=== PATIENT | female | born 1955 | race Caucasian/White ===

== ENCOUNTER 2017-04-21 01:39 | Emergency (ER) | payer BC, MEDICARE ==
[~2017-04-21] VITALS: Ht 157.5 cm; Wt 118.8 kg
[~2017-04-21 01:39] MED LIST: ACEBUTCAFT PO; ACET325 PO; ACET500; ADVAIR; ALBIPROI INH; ALBU90I INH; ALBU90OI INH; AZIT250 PO; BACL10 PO; BIOTIN5000 MCG PO; BUTALB-ACETAMI1 EAC2 PO; BUTASPCAFT PO; CEPH500 PO; CHOL10002 PO; CITA20 PO; CLON.5 PO; CLON1 PO; DEXL60CA3 PO; DIVA500EC PO; DIVA500ER PO; DOC250 PO; DOCU100 PO; DULO30 PO; DULO60 PO; FLUDROCORTISONE PO; FLUSAL2505 IH; FLUSAL2505 INH; FURO20 PO; FURO40 PO; Fludrocortison0.1 MG; Fludrocortison0.1 MG PO; GABA100; GABA100 PO; GABA300 PO; Glucophage1000 MG PO; HYDACE25S PR; HYDACE5 PO; HYDCOR2.5C PR; Imitrex100 MG PO; Keflex500 MG PO; LAVAP17G PO; LISI20 PO; LORA1 PO; MAGOXI400 PO; METF500 PO; METF500C PO; METO25 PO; METPRE4 PO; MULVITMINE PO; MUPI2TO TOP; OMEP20ER PO; OMEPRAZOLE; OMEPRAZOLE MAGN20 MG PO; ONDA4 PO; OXYACE5T PO; OXYC10ER PO; OXYC20ER PO; OXYC5 PO; Oxycodone-Apap1 EAC3 PO; POTA10T PO; POTCHL10ER PO; PRED10 PO; PROACE100 PO; PROC10 PO; PROM25 PO; PSYL5.85P PO; Percocet 5-3251 EACH PO; Prednisone20 MG PO; Prednisone50 MG PO; QUET100 PO; QUET25; QUET25 PO; RXHYDACE PO; RXONDA4ODT MM; RXPROACE PO; SIMV40 PO; SPIRIVA INH; SULTRIDS PO; SUMA25 PO; TIOT18 IH; TOPI25 PO; TOPI50 PO; TRAM50; TRAM50 PO; TRAZ50 PO; TUDORZA PRESS400 MCG IH; TUDORZA PRESS400 MCG INH; UNK MUSCLE RELAXER; VITAMIN D2000 UNIT PO; Verotin-Gr Cap1 EACH PO; WARF1 PO; WARF2 PO; WARF3 PO; WARF4 PO; WARF5 PO; WARF6 PO; ZEBUTAL 50-3251 EACH; Zithromax250 MG PO; Zofran8 MG PO; [UNRECOGNIZED DRUG - OTHER] PO
[2017-04-21 02:54] LABS: BASOPHILS ABSOLUTE AUTO 0.06 K/mm3 (0.00-0.23); BASOPHILS PERCENT AUTO 1 % (0-2); EOSINOPHILS ABSOLUTE AUTO 0.25 K/mm3 (0.00-0.68); EOSINOPHILS PERCENT AUTO 3 % (0-6); Hemoglobin 13.1 g/dL (11.5-16.0); IMMATURE GRAN ABSOLUTE AUTO 0.02 K/mm3 (0.00-0.10); IMMATURE GRAN PERCENT AUTO 0 % (0-1); LYMPHOCYTES ABSOLUTE AUTO 1.84 K/mm3 (0.84-5.20); LYMPHOCYTES PERCENT AUTO 21 % (21-46); MONOCYTES ABSOLUTE AUTO 0.89 K/mm3 (0.16-1.47); MONOCYTES PERCENT AUTO 10 % (4-13); Mean Corpuscular HGB 28.7 pg (26.0-34.0); Mean Corpuscular Volume 90 fL (80-100); NEUTROPHILS ABSOLUTE AUTO 5.57 K/mm3 (1.96-9.15); NEUTROPHILS PERCENT AUTO 65 % (41-73); Platelet Count 323 K/mm3 (150-400); RDW Coefficient Variation 14.3 % (11.7-14.2); RDW Standard Deviation 47.6 fL (35.1-46.3); Red Blood Cell Count 4.56 M/mm3 (3.80-5.20); White Blood Cell Count 8.63 K/mm3 (4.00-11.30)
[2017-04-21 03:06] LABS: Anion Gap 9 mmol/L (6-16); Blood Urea Nitrogen 8 mg/dL (8-24); Bun/Creatinine Ratio 11.5 (12.0-20.0); CO2, Blood 27 mmol/L (21-32); Calcium, Blood 8.5 mg/dL (8.5-10.1); Chloride, Blood 98 mmol/L (98-108); Glomerular Filtration Rate >60 (60-); Glucose, Blood 157 mg/dL (70-99); International Normalized Ratio 1.67; Potassium, Blood 3.7 mmol/L (3.5-5.5); Prothrombin Time Results 17.7 Sec (9.7-11.5); Sodium, Blood 134 mmol/L (136-145)
== END 2017-04-21 03:45 | disposition home or self-care (01) ==
LOC: ER 01:39
PROVIDERS: Emergency Medicine
DX: S09.90XA Unspecified injury of head, initial encounter (principal); J44.9 Chronic obstructive pulmonary disease, unspecified; I10 Essential (primary) hypertension; E11.9 Type 2 diabetes mellitus without complications; E78.00 Pure hypercholesterolemia, unspecified; Z79.01 Long term (current) use of anticoagulants; Z87.891 Personal history of nicotine dependence; Z79.899 Other long term (current) drug therapy; Z79.84 Long term (current) use of oral hypoglycemic drugs; W18.30XA Fall on same level, unspecified, initial encounter
CPT/HCPCS: 70450; 72125; 80048; 85025; 85610; 93005; 93010; 99284

== ENCOUNTER → 2017-06-12 | Outpatient (CLI) | payer BC, MEDICARE ==
[~2017-06-12] MED LIST changes: -FURO20 PO; +OMEP40CA12 PO; -OMEPRAZOLE MAGN20 MG PO
[2017-06-12 12:14] LABS: Adenovirus F 40/41 Not Detected (NOT DETECT); Astrovirus Not Detected (NOT DETECT); Campylobacter Sp Not Detected (NOT DETECT); Cryptosporidium Not Detected (NOT DETECT); Cyclospora Cayetanensis Not Detected (NOT DETECT); E. Coli O157 Not Detected (NOT DETECT); Entamoeba Histolytica Not Detected (NOT DETECT); Enteroaggregative E. coli-EAEC Not Detected (NOT DETECT); Enteropathogenic E. coli-EPEC Not Detected (NOT DETECT); Enterotoxigenic E. coli-ETEC Not Detected (NOT DETECT); Giardia Lamblia Not Detected (NOT DETECT); Norovirus GI/GII Not Detected (NOT DETECT); Plesiomonas Shigelloides Not Detected (NOT DETECT); Rotavirus A Not Detected (NOT DETECT); Salmonella Sp Not Detected (NOT DETECT); Sapovirus Not Detected (NOT DETECT); Shiga Toxin-prod E. coli-STEC Not Detected (NOT DETECT); Shigella/Enteroin E. coli-EIEC Not Detected (NOT DETECT); Vibrio Cholerae Not Detected (NOT DETECT); Vibrio Sp Not Detected (NOT DETECT); Yersinia Enterocolitica Not Detected (NOT DETECT)
== END | disposition home or self-care (01) ==
LOC: LAB 12:12 → LAB SHORT 12:12
PROVIDERS: Internal Medicine Gastroenterology
DX: R19.7 Diarrhea, unspecified (principal)
CPT/HCPCS: 87507

== ENCOUNTER 2017-06-20 21:52 | Inpatient (IN) | payer BC, MEDICARE ==
[~2017-06-20] VITALS: Ht 154.9 cm; Wt 114.1 kg
[~2017-06-20 21:52] MED LIST changes: +FURO20 PO; -OMEP40CA12 PO; +OMEPRAZOLE MAGN20 MG PO
[2017-06-20 22:15] LABS: Chloride (POC) 99 mmol/L (98-108); Creatinine (POC) 0.6 mg/dL (0.6-1.0); Glucose (ISTAT POC) 141 mg/dL (70-99); Hemoglobin (POC) 13.3 g/dL (12.0-16.0); Sodium (POC) 137 mmol/L (135-148); Total CO2 (POC) 24 mmol/L (21-32)
[2017-06-20 22:18] LABS: Hematocrit 38.7 % (33.0-51.0); Hemoglobin 12.5 g/dL (11.5-16.0); Mean Corpuscular HGB 29.3 pg (26.0-34.0); Mean Corpuscular HGB Conc 32.3 g/dL (31.5-36.5); Mean Corpuscular Volume 91 fL (80-100); Mean Platelet Volume 10.4 fL (9.1-12.4); Platelet Count 266 K/mm3 (150-400); RDW Coefficient Variation 14.8 % (11.7-14.2); RDW Standard Deviation 48.5 fL (35.1-46.3); Red Blood Cell Count 4.27 M/mm3 (3.80-5.20); White Blood Cell Count 14.36 K/mm3 (4.00-11.30)
[2017-06-20 22:32] LABS: International Normalized Ratio 1.21; Prothrombin Time Results 12.7 Sec (9.7-11.5)
[2017-06-20 22:40] LABS: Alanine Aminotransfer (ALT/SGP 20 U/L (12-78); Albumin, Blood 2.8 g/dL (3.4-5.0); Albumin/Globulin Ratio 0.7 (0.8-1.8); Alk Phos 80 U/L (50-136); Anion Gap 9 mmol/L (6-16); Aspartate Aminotrans (AST/SGOT 15 U/L (12-37); Bilirubin, Total 0.2 mg/dL (0.1-1.0); Blood Urea Nitrogen 12 mg/dL (8-24); Bun/Creatinine Ratio 18.3 (12.0-20.0); CHOL/HDL RATIO 5.6; CO2, Blood 25 mmol/L (21-32); Calcium, Blood 8.5 mg/dL (8.5-10.1); Chloride, Blood 103 mmol/L (98-108); Cholesterol 252 mg/dL (50-200); Creatinine, Blood 0.66 mg/dL (0.40-1.00); Globulin, Blood 4.3 g/dL (2.2-4.0); Glomerular Filtration Rate >60 (60-); Glucose, Blood 137 mg/dL (70-99); HDL Cholesterol 45 mg/dL (>39); LDL/HDL RATIO 3.7; Low Density Lipoprotein Chol 166 mg/dL (0-110); Magnesium, Blood 1.3 mg/dL (1.6-2.4); Potassium, Blood 3.9 mmol/L (3.5-5.5); Sodium, Blood 137 mmol/L (136-145); Total Protein, Blood 7.1 g/dL (6.4-8.2); Triglycerides 206 mg/dL (30-160); Troponin I <0.015 ng/mL (0.000-0.040); Very Low Density Lipoprot Chol 41 mg/dL (6-32)
[2017-06-21] MEDS ORDERED: WARF3 PO (01:05)
[2017-06-21] MEDS ORDERED: Pravachol40 MG PO (01:06)
[2017-06-21 03:51] LABS: Source, Urine Clean Catch
[2017-06-21 03:53] LABS: Bilirubin, Urine Neg (Neg); Blood, Urine 2+ (Neg); Glucose Qualitative, Urine Neg (Neg); Ketones, Urine 1+ (Neg); Leukocyte Esterase, Urine 3+ (Neg); Nitrite, Urine Neg (Neg); Protein, Urine 2+ (Neg); Specific Gravity, Urine 1.015 (1.003-1.022); Urobilinogen, Urine NORM (Normal)
[2017-06-21 03:57] LABS: Appearance, Urine Cloudy (Clear); Color, Urine Pale Yellow (P-Yellow)
[2017-06-21 04:00] LABS: Bacteria Many /hpf; Red Blood Cells, Urine 0-2 /hpf (0-2); Squamous Epithelial Cells Not Seen /hpf (Few); White Blood Cells, Urine TNTC /hpf (0-5)
[2017-06-21 06:20] LABS: BASOPHILS ABSOLUTE AUTO 0.09 K/mm3 (0.00-0.23); BASOPHILS PERCENT AUTO 1 % (0-2); EOSINOPHILS ABSOLUTE AUTO 0.18 K/mm3 (0.00-0.68); EOSINOPHILS PERCENT AUTO 2 % (0-6); Hematocrit 35.6 % (33.0-51.0); Hemoglobin 11.4 g/dL (11.5-16.0); IMMATURE GRAN ABSOLUTE AUTO 0.05 K/mm3 (0.00-0.10); IMMATURE GRAN PERCENT AUTO 1 % (0-1); LYMPHOCYTES PERCENT AUTO 21 % (21-46); MONOCYTES ABSOLUTE AUTO 1.28 K/mm3 (0.16-1.47); MONOCYTES PERCENT AUTO 12 % (4-13); Mean Corpuscular HGB 28.8 pg (26.0-34.0); Mean Corpuscular Volume 90 fL (80-100); Mean Platelet Volume 10.1 fL (9.1-12.4); NEUTROPHILS ABSOLUTE AUTO 7.01 K/mm3 (1.96-9.15); NEUTROPHILS PERCENT AUTO 64 % (41-73); Platelet Count 253 K/mm3 (150-400); RDW Coefficient Variation 14.8 % (11.7-14.2); RDW Standard Deviation 48.6 fL (35.1-46.3); Red Blood Cell Count 3.96 M/mm3 (3.80-5.20); White Blood Cell Count 10.91 K/mm3 (4.00-11.30)
[2017-06-21 06:43] LABS: CPK Creatine Kinase 40 U/L (26-193); Troponin I <0.015 ng/mL (0.000-0.040)
[2017-06-21 06:49] LABS: Alanine Aminotransfer (ALT/SGP 15 U/L (12-78); Albumin, Blood 2.6 g/dL (3.4-5.0); Albumin/Globulin Ratio 0.7 (0.8-1.8); Alk Phos 72 U/L (50-136); Anion Gap 8 mmol/L (6-16); Aspartate Aminotrans (AST/SGOT 11 U/L (12-37); Bilirubin, Total 0.3 mg/dL (0.1-1.0); Blood Urea Nitrogen 15 mg/dL (8-24); Bun/Creatinine Ratio 19.4 (12.0-20.0); CO2, Blood 27 mmol/L (21-32); Calcium, Blood 8.3 mg/dL (8.5-10.1); Chloride, Blood 100 mmol/L (98-108); Creatinine, Blood 0.77 mg/dL (0.40-1.00); Globulin, Blood 3.9 g/dL (2.2-4.0); Glomerular Filtration Rate >60 (60-); Glucose, Blood 128 mg/dL (70-99); Potassium, Blood 3.8 mmol/L (3.5-5.5); Sodium, Blood 135 mmol/L (136-145); Total Protein, Blood 6.5 g/dL (6.4-8.2)
[2017-06-21 15:18] LABS: International Normalized Ratio 1.44; Prothrombin Time Results 15.2 Sec (9.7-11.5)
[2017-06-21 15:49] LABS: CPK Creatine Kinase 38 U/L (26-193); Troponin I <0.015 ng/mL (0.000-0.040)
[2017-06-22 06:17] LABS: BASOPHILS ABSOLUTE AUTO 0.07 K/mm3 (0.00-0.23); BASOPHILS PERCENT AUTO 1 % (0-2); EOSINOPHILS ABSOLUTE AUTO 0.15 K/mm3 (0.00-0.68); EOSINOPHILS PERCENT AUTO 3 % (0-6); Hematocrit 37.1 % (33.0-51.0); Hemoglobin 12.2 g/dL (11.5-16.0); IMMATURE GRAN ABSOLUTE AUTO 0.03 K/mm3 (0.00-0.10); IMMATURE GRAN PERCENT AUTO 1 % (0-1); LYMPHOCYTES ABSOLUTE AUTO 1.33 K/mm3 (0.84-5.20); LYMPHOCYTES PERCENT AUTO 24 % (21-46); MONOCYTES PERCENT AUTO 13 % (4-13); Mean Corpuscular HGB 29.4 pg (26.0-34.0); Mean Corpuscular HGB Conc 32.9 g/dL (31.5-36.5); Mean Corpuscular Volume 89 fL (80-100); Mean Platelet Volume 10.5 fL (9.1-12.4); NEUTROPHILS ABSOLUTE AUTO 3.25 K/mm3 (1.96-9.15); NEUTROPHILS PERCENT AUTO 59 % (41-73); Platelet Count 276 K/mm3 (150-400); RDW Coefficient Variation 14.5 % (11.7-14.2); Red Blood Cell Count 4.15 M/mm3 (3.80-5.20); White Blood Cell Count 5.53 K/mm3 (4.00-11.30)
[2017-06-22 06:33] LABS: Anion Gap 6 mmol/L (6-16); Blood Urea Nitrogen 11 mg/dL (8-24); Bun/Creatinine Ratio 16.1 (12.0-20.0); CO2, Blood 29 mmol/L (21-32); Calcium, Blood 8.8 mg/dL (8.5-10.1); Chloride, Blood 101 mmol/L (98-108); Creatinine, Blood 0.68 mg/dL (0.40-1.00); Glomerular Filtration Rate >60 (60-); Glucose, Blood 121 mg/dL (70-99); Sodium, Blood 136 mmol/L (136-145)
[2017-06-22 17:33] LABS: International Normalized Ratio 1.27; Prothrombin Time Results 13.3 Sec (9.7-11.5)
[2017-06-23 05:01] LABS: Mean Platelet Volume 10.4 fL (9.1-12.4); Platelet Count 268 K/mm3 (150-400)
[2017-06-23 05:14] LABS: International Normalized Ratio 1.29; Prothrombin Time Results 13.5 Sec (9.7-11.5)
[2017-06-23] MEDS ORDERED: WARF4 PO (11:42)
[2017-06-23] MEDS ORDERED: LEVO750 PO (11:43)
[2017-06-23] MEDS ORDERED: COLCRYS0.6 MG PO (11:43)
== END 2017-06-23 13:21 | disposition home or self-care (01) | DRG 314 ==
LOC: ER 21:52 → ICUW 23:25 → ICUE 23:25 → MEDS 06-21 17:03 → ENPENDDIS 06-23 11:55 → MEDS 06-23 13:21
PROVIDERS: Emergency Medicine; Internal Medicine; Internal Medicine Interventional Cardiology
DX: I30.9 Acute pericarditis, unspecified (principal); G93.40 Encephalopathy, unspecified; N39.0 Urinary tract infection, site not specified; Z68.42 Body mass index [BMI] 45.0-49.9, adult; B95.2 Enterococcus as the cause of diseases classified elsewhere; Z95.2 Presence of prosthetic heart valve; I10 Essential (primary) hypertension; E11.9 Type 2 diabetes mellitus without complications; Z86.718 Personal history of other venous thrombosis and embolism; Z86.711 Personal history of pulmonary embolism; J44.9 Chronic obstructive pulmonary disease, unspecified; E78.5 Hyperlipidemia, unspecified; E66.9 Obesity, unspecified; J84.10 Pulmonary fibrosis, unspecified; Z79.01 Long term (current) use of anticoagulants
CPT/HCPCS: 36415; 71260; 80047; 80048; 80053; 80061; 81001; 82550; 82947; 83735; 84484; 85014; 85025; 85027; 85049; 85610; 85730; 86850; 86900; 86901; 87077; 87086; 87186; 93005; 93010; 93306; 94640; 94760; 96374; 96375; 99285; J1644; J1650; J1885; J1956; J2405; J3010; J3475; J7030; Q9967

== ENCOUNTER 2017-07-01 09:40 | Emergency (ER) | payer BC, MEDICARE ==
[~2017-07-01] VITALS: Ht 157.5 cm; Wt 121.6 kg
[~2017-07-01 09:40] MED LIST changes: +COLCRYS0.6 MG PO; +LEVO750 PO; +OMEP40CA12 PO; -OMEPRAZOLE MAGN20 MG PO; +Pravachol40 MG PO
[2017-07-01 10:14] LABS: BASOPHILS ABSOLUTE AUTO 0.09 K/mm3 (0.00-0.23); BASOPHILS PERCENT AUTO 1 % (0-2); EOSINOPHILS PERCENT AUTO 4 % (0-6); Hematocrit 36.3 % (33.0-51.0); Hemoglobin 11.9 g/dL (11.5-16.0); IMMATURE GRAN ABSOLUTE AUTO 0.02 K/mm3 (0.00-0.10); IMMATURE GRAN PERCENT AUTO 0 % (0-1); LYMPHOCYTES ABSOLUTE AUTO 1.97 K/mm3 (0.84-5.20); LYMPHOCYTES PERCENT AUTO 28 % (21-46); MONOCYTES ABSOLUTE AUTO 0.81 K/mm3 (0.16-1.47); MONOCYTES PERCENT AUTO 11 % (4-13); Mean Corpuscular HGB 29.5 pg (26.0-34.0); Mean Corpuscular HGB Conc 32.8 g/dL (31.5-36.5); Mean Corpuscular Volume 90 fL (80-100); Mean Platelet Volume 10.3 fL (9.1-12.4); NEUTROPHILS ABSOLUTE AUTO 3.98 K/mm3 (1.96-9.15); NEUTROPHILS PERCENT AUTO 55 % (41-73); Platelet Count 259 K/mm3 (150-400); RDW Coefficient Variation 14.5 % (11.7-14.2); RDW Standard Deviation 47.3 fL (35.1-46.3); Red Blood Cell Count 4.04 M/mm3 (3.80-5.20); White Blood Cell Count 7.17 K/mm3 (4.00-11.30)
[2017-07-01 10:30] LABS: International Normalized Ratio 1.53; Prothrombin Time Results 16.1 Sec (9.7-11.5)
[2017-07-01 10:36] LABS: Alanine Aminotransfer (ALT/SGP 18 U/L (12-78); Albumin, Blood 2.8 g/dL (3.4-5.0); Albumin/Globulin Ratio 0.8 (0.8-1.8); Alk Phos 67 U/L (50-136); Anion Gap 10 mmol/L (6-16); Aspartate Aminotrans (AST/SGOT 13 U/L (12-37); Bilirubin, Total 0.2 mg/dL (0.1-1.0); Blood Urea Nitrogen 8 mg/dL (8-24); Bun/Creatinine Ratio 11.5 (12.0-20.0); CO2, Blood 28 mmol/L (21-32); Calcium, Blood 7.8 mg/dL (8.5-10.1); Chloride, Blood 98 mmol/L (98-108); Globulin, Blood 3.6 g/dL (2.2-4.0); Glomerular Filtration Rate >60 (60-); Glucose, Blood 90 mg/dL (70-99); Potassium, Blood 3.8 mmol/L (3.5-5.5); Sodium, Blood 136 mmol/L (136-145); Total Protein, Blood 6.4 g/dL (6.4-8.2); Troponin I <0.015 ng/mL (0.000-0.040)
== END 2017-07-01 11:32 | disposition home or self-care (01) ==
LOC: ER 09:40
PROVIDERS: Emergency Medicine
DX: I63.9 Cerebral infarction, unspecified (principal); I61.8 Other nontraumatic intracerebral hemorrhage; R20.2 Paresthesia of skin; J44.9 Chronic obstructive pulmonary disease, unspecified; I10 Essential (primary) hypertension; E11.9 Type 2 diabetes mellitus without complications; E78.00 Pure hypercholesterolemia, unspecified; Z87.891 Personal history of nicotine dependence; Z88.0 Allergy status to penicillin; Z88.5 Allergy status to narcotic agent; Z88.6 Allergy status to analgesic agent; Z91.048 Other nonmedicinal substance allergy status; Z79.899 Other long term (current) drug therapy; Z79.84 Long term (current) use of oral hypoglycemic drugs; Z79.01 Long term (current) use of anticoagulants
CPT/HCPCS: 70450; 80053; 82947; 84484; 85025; 85610; 93005; 93010; 99284

== ENCOUNTER 2017-07-05 09:33 | Observation (INO) | payer BC, MEDICARE ==
[~2017-07-05] VITALS: Ht 154.9 cm; Wt 107.9 kg
[~2017-07-05 09:33] MED LIST changes: -OMEP40CA12 PO; +OMEPRAZOLE MAGN20 MG PO
[2017-07-05 11:31] LABS: BASOPHILS ABSOLUTE AUTO 0.06 K/mm3 (0.00-0.23); BASOPHILS PERCENT AUTO 1 % (0-2); EOSINOPHILS ABSOLUTE AUTO 0.16 K/mm3 (0.00-0.68); EOSINOPHILS PERCENT AUTO 2 % (0-6); Hematocrit 36.9 % (33.0-51.0); Hemoglobin 12.1 g/dL (11.5-16.0); IMMATURE GRAN ABSOLUTE AUTO 0.02 K/mm3 (0.00-0.10); IMMATURE GRAN PERCENT AUTO 0 % (0-1); LYMPHOCYTES ABSOLUTE AUTO 1.41 K/mm3 (0.84-5.20); LYMPHOCYTES PERCENT AUTO 19 % (21-46); MONOCYTES ABSOLUTE AUTO 0.94 K/mm3 (0.16-1.47); MONOCYTES PERCENT AUTO 13 % (4-13); Mean Corpuscular HGB 29.3 pg (26.0-34.0); Mean Corpuscular HGB Conc 32.8 g/dL (31.5-36.5); Mean Corpuscular Volume 89 fL (80-100); Mean Platelet Volume 10.6 fL (9.1-12.4); NEUTROPHILS ABSOLUTE AUTO 4.85 K/mm3 (1.96-9.15); NEUTROPHILS PERCENT AUTO 65 % (41-73); Platelet Count 253 K/mm3 (150-400); RDW Coefficient Variation 14.8 % (11.7-14.2); RDW Standard Deviation 48.3 fL (35.1-46.3); Red Blood Cell Count 4.13 M/mm3 (3.80-5.20); White Blood Cell Count 7.44 K/mm3 (4.00-11.30)
[2017-07-05 11:43] LABS: International Normalized Ratio 1.41; Prothrombin Time Results 14.8 Sec (9.7-11.5)
[2017-07-05 11:54] LABS: Alanine Aminotransfer (ALT/SGP 17 U/L (12-78); Albumin/Globulin Ratio 0.8 (0.8-1.8); Alk Phos 72 U/L (50-136); Anion Gap 8 mmol/L (6-16); Aspartate Aminotrans (AST/SGOT 21 U/L (12-37); Bilirubin, Total 0.2 mg/dL (0.1-1.0); Blood Urea Nitrogen 10 mg/dL (8-24); Bun/Creatinine Ratio 15.7 (12.0-20.0); CO2, Blood 27 mmol/L (21-32); Calcium, Blood 8.7 mg/dL (8.5-10.1); Chloride, Blood 101 mmol/L (98-108); Creatinine, Blood 0.64 mg/dL (0.40-1.00); Ethanol (Alcohol), Blood, Med <3 mg/dL; Globulin, Blood 3.6 g/dL (2.2-4.0); Glomerular Filtration Rate >60 (60-); Glucose, Blood 97 mg/dL (70-99); Potassium, Blood 4.5 mmol/L (3.5-5.5); Sodium, Blood 136 mmol/L (136-145); Total Protein, Blood 6.6 g/dL (6.4-8.2); Troponin I <0.015 ng/mL (0.000-0.040)
[2017-07-05 12:05] LABS: Base Excess Venous 2.9 mmol/L; Bicarbonate Venous 26.1 mmol/L (24.0-30.0); PCO2 Venous 47.8 mmHg (38-42); PO2 Venous 55.4 mmHg (38-42); pH Blood Venous 7.38 (7.34-7.37)
[2017-07-06 05:54] LABS: BASOPHILS PERCENT AUTO 1 % (0-2); EOSINOPHILS ABSOLUTE AUTO 0.19 K/mm3 (0.00-0.68); EOSINOPHILS PERCENT AUTO 2 % (0-6); Hematocrit 36.9 % (33.0-51.0); Hemoglobin 11.9 g/dL (11.5-16.0); IMMATURE GRAN ABSOLUTE AUTO 0.03 K/mm3 (0.00-0.10); IMMATURE GRAN PERCENT AUTO 0 % (0-1); LYMPHOCYTES ABSOLUTE AUTO 1.99 K/mm3 (0.84-5.20); LYMPHOCYTES PERCENT AUTO 26 % (21-46); MONOCYTES PERCENT AUTO 14 % (4-13); Mean Corpuscular HGB 29.2 pg (26.0-34.0); Mean Corpuscular HGB Conc 32.2 g/dL (31.5-36.5); Mean Corpuscular Volume 91 fL (80-100); Mean Platelet Volume 10.2 fL (9.1-12.4); NEUTROPHILS ABSOLUTE AUTO 4.36 K/mm3 (1.96-9.15); NEUTROPHILS PERCENT AUTO 56 % (41-73); Platelet Count 261 K/mm3 (150-400); RDW Standard Deviation 49.5 fL (35.1-46.3); Red Blood Cell Count 4.07 M/mm3 (3.80-5.20); White Blood Cell Count 7.77 K/mm3 (4.00-11.30)
[2017-07-06 06:05] LABS: International Normalized Ratio 1.51; Prothrombin Time Results 15.9 Sec (9.7-11.5)
[2017-07-06 06:26] LABS: Anion Gap 10 mmol/L (6-16); Blood Urea Nitrogen 10 mg/dL (8-24); CO2, Blood 23 mmol/L (21-32); Calcium, Blood 8.9 mg/dL (8.5-10.1); Chloride, Blood 104 mmol/L (98-108); Creatinine, Blood 0.59 mg/dL (0.40-1.00); Glomerular Filtration Rate >60 (60-); Glucose, Blood 111 mg/dL (70-99); Sodium, Blood 137 mmol/L (136-145)
[2017-07-07 05:18] LABS: International Normalized Ratio 1.9; Prothrombin Time Results 20.2 Sec (9.7-11.5)
[2017-07-07 06:18] LABS: BASOPHILS ABSOLUTE AUTO 0.08 K/mm3 (0.00-0.23); BASOPHILS PERCENT AUTO 1 % (0-2); EOSINOPHILS ABSOLUTE AUTO 0.33 K/mm3 (0.00-0.68); EOSINOPHILS PERCENT AUTO 4 % (0-6); Hemoglobin 11.8 g/dL (11.5-16.0); IMMATURE GRAN ABSOLUTE AUTO 0.02 K/mm3 (0.00-0.10); IMMATURE GRAN PERCENT AUTO 0 % (0-1); LYMPHOCYTES ABSOLUTE AUTO 1.87 K/mm3 (0.84-5.20); LYMPHOCYTES PERCENT AUTO 23 % (21-46); MONOCYTES ABSOLUTE AUTO 1.12 K/mm3 (0.16-1.47); MONOCYTES PERCENT AUTO 14 % (4-13); Mean Corpuscular HGB 29.4 pg (26.0-34.0); Mean Corpuscular HGB Conc 31.9 g/dL (31.5-36.5); Mean Corpuscular Volume 92 fL (80-100); Mean Platelet Volume 10.4 fL (9.1-12.4); NEUTROPHILS ABSOLUTE AUTO 4.67 K/mm3 (1.96-9.15); NEUTROPHILS PERCENT AUTO 58 % (41-73); Platelet Count 258 K/mm3 (150-400); RDW Standard Deviation 51.1 fL (35.1-46.3); Red Blood Cell Count 4.02 M/mm3 (3.80-5.20); White Blood Cell Count 8.09 K/mm3 (4.00-11.30)
[2017-07-07 06:25] LABS: Anion Gap 8 mmol/L (6-16); Blood Urea Nitrogen 10 mg/dL (8-24); Bun/Creatinine Ratio 16.8 (12.0-20.0); CO2, Blood 24 mmol/L (21-32); Chloride, Blood 106 mmol/L (98-108); Glomerular Filtration Rate >60 (60-); Glucose, Blood 108 mg/dL (70-99); Potassium, Blood 4.4 mmol/L (3.5-5.5); Sodium, Blood 138 mmol/L (136-145)
[2017-07-07] MEDS ORDERED: WARF5 PO (09:51)
[2017-07-07] MEDS ORDERED: MIDO2.5 PO (09:52)
== END 2017-07-07 12:50 ==
LOC: ER 09:33 → MEDS 09:34
PROVIDERS: Emergency Medicine; Hospitalist
DX: G93.40 Encephalopathy, unspecified (principal); R53.1 Weakness; E11.9 Type 2 diabetes mellitus without complications; E78.5 Hyperlipidemia, unspecified; F32.9 Major depressive disorder, single episode, unspecified; I11.0 Hypertensive heart disease with heart failure; I50.30 Unspecified diastolic (congestive) heart failure; F41.9 Anxiety disorder, unspecified; Z79.899 Other long term (current) drug therapy; Z85.118 Personal history of other malignant neoplasm of bronchus and lung; Z92.21 Personal history of antineoplastic chemotherapy; Z95.2 Presence of prosthetic heart valve; Z88.0 Allergy status to penicillin; Z88.5 Allergy status to narcotic agent; Z88.6 Allergy status to analgesic agent; Z86.718 Personal history of other venous thrombosis and embolism
CPT/HCPCS: 36415; 70551; 71045; 80048; 80053; 82533; 82803; 82947; 84484; 85025; 85610; 93005; 93010; 96372; 97116; 97162; 97166; 97530; 97535; 99285; G0378; G0480; G8978; G8979; G8987; G8988; J1650; P9612

== ENCOUNTER → 2017-07-10 | Outpatient (CLI) | payer BC, MEDICARE ==
[~2017-07-10] MED LIST changes: +MIDO2.5 PO
[2017-07-10 10:08] LABS: Alanine Aminotransfer (ALT/SGP 23 U/L (12-78); Albumin, Blood 3.1 g/dL (3.4-5.0); Albumin/Globulin Ratio 0.8 (0.8-1.8); Alk Phos 82 U/L (40-126); Anion Gap 13 mmol/L (6-16); Aspartate Aminotrans (AST/SGOT 18 U/L (12-37); Bilirubin, Total 0.3 mg/dL (0.1-1.0); Blood Urea Nitrogen 14 mg/dL (8-24); Bun/Creatinine Ratio 16.1 (12.0-20.0); CO2, Blood 25 mmol/L (21-32); Calcium, Blood 8.6 mg/dL (8.5-10.1); Chloride, Blood 102 mmol/L (98-108); Creatinine, Blood 0.87 mg/dL (0.40-1.00); Globulin, Blood 3.9 g/dL (2.2-4.0); Glomerular Filtration Rate >60 (60-); Glucose, Blood 144 mg/dL (70-99); Potassium, Blood 4.2 mmol/L (3.5-5.5); Sodium, Blood 140 mmol/L (136-145)
[2017-07-10 10:12] LABS: BASOPHILS ABSOLUTE AUTO 0.09 K/mm3 (0.00-0.23); BASOPHILS PERCENT AUTO 1 % (0-2); EOSINOPHILS ABSOLUTE AUTO 0.32 K/mm3 (0.00-0.68); EOSINOPHILS PERCENT AUTO 2 % (0-6); Hematocrit 40.2 % (33.0-51.0); Hemoglobin 13.1 g/dL (11.5-16.0); IMMATURE GRAN ABSOLUTE AUTO 0.04 K/mm3 (0.00-0.10); IMMATURE GRAN PERCENT AUTO 0 % (0-1); LYMPHOCYTES ABSOLUTE AUTO 1.71 K/mm3 (0.84-5.20); LYMPHOCYTES PERCENT AUTO 13 % (21-46); MONOCYTES ABSOLUTE AUTO 0.99 K/mm3 (0.16-1.47); MONOCYTES PERCENT AUTO 8 % (4-13); Mean Corpuscular HGB 29.5 pg (26.0-34.0); Mean Corpuscular HGB Conc 32.6 g/dL (31.5-36.5); Mean Corpuscular Volume 91 fL (80-100); NEUTROPHILS ABSOLUTE AUTO 10.06 K/mm3 (1.96-9.15); NEUTROPHILS PERCENT AUTO 76 % (41-73); Platelet Count 267 K/mm3 (150-400); RDW Coefficient Variation 15.2 % (11.7-14.2); RDW Standard Deviation 49.5 fL (35.1-46.3); Red Blood Cell Count 4.44 M/mm3 (3.80-5.20); White Blood Cell Count 13.21 K/mm3 (4.00-11.30)
[2017-07-10 10:29] LABS: International Normalized Ratio 3.06; Prothrombin Time Results 32.9 Sec (9.7-11.5)
== END ==
LOC: LAB EV 09:50 → LAB SHORT 09:50
PROVIDERS: Family Medicine
DX: I95.9 Hypotension, unspecified (principal); R41.82 Altered mental status, unspecified; Z86.718 Personal history of other venous thrombosis and embolism
CPT/HCPCS: 80053; 85025; 85610

== ENCOUNTER 2017-10-31 16:55 | Emergency (ER) | payer BC, MEDICARE ==
[~2017-10-31] VITALS: Ht 165.1 cm; Wt 90.7 kg
[2017-10-31 17:23] LABS: BASOPHILS ABSOLUTE AUTO 0.12 K/mm3 (0.00-0.23); BASOPHILS PERCENT AUTO 2 % (0-2); EOSINOPHILS ABSOLUTE AUTO 0.36 K/mm3 (0.00-0.68); EOSINOPHILS PERCENT AUTO 5 % (0-6); Hematocrit 36.3 % (33.0-51.0); Hemoglobin 11.7 g/dL (11.5-16.0); IMMATURE GRAN ABSOLUTE AUTO 0.04 K/mm3 (0.00-0.10); IMMATURE GRAN PERCENT AUTO 1 % (0-1); LYMPHOCYTES ABSOLUTE AUTO 2.09 K/mm3 (0.84-5.20); LYMPHOCYTES PERCENT AUTO 26 % (21-46); MONOCYTES ABSOLUTE AUTO 1.05 K/mm3 (0.16-1.47); MONOCYTES PERCENT AUTO 13 % (4-13); Mean Corpuscular HGB 28.4 pg (26.0-34.0); Mean Corpuscular HGB Conc 32.2 g/dL (31.5-36.5); Mean Corpuscular Volume 88 fL (80-100); Mean Platelet Volume 9.9 fL (9.1-12.4); NEUTROPHILS ABSOLUTE AUTO 4.36 K/mm3 (1.96-9.15); NEUTROPHILS PERCENT AUTO 54 % (41-73); Platelet Count 251 K/mm3 (150-400); RDW Coefficient Variation 16.1 % (11.7-14.2); RDW Standard Deviation 52.3 fL (35.1-46.3); Red Blood Cell Count 4.12 M/mm3 (3.80-5.20); White Blood Cell Count 8.02 K/mm3 (4.00-11.30)
[2017-10-31 17:42] LABS: Alanine Aminotransfer (ALT/SGP 21 U/L (12-78); Albumin, Blood 2.8 g/dL (3.4-5.0); Albumin/Globulin Ratio 0.7 (0.8-1.8); Alk Phos 73 U/L (50-136); Anion Gap 10 mmol/L (6-16); Aspartate Aminotrans (AST/SGOT 22 U/L (12-37); Bilirubin, Total 0.1 mg/dL (0.1-1.0); Blood Urea Nitrogen 21 mg/dL (8-24); Bun/Creatinine Ratio 25.7 (12.0-20.0); CO2, Blood 25 mmol/L (21-32); Calcium, Blood 8.8 mg/dL (8.5-10.1); Chloride, Blood 101 mmol/L (98-108); Creatinine, Blood 0.82 mg/dL (0.40-1.00); Glomerular Filtration Rate >60 (60-); Glucose, Blood 169 mg/dL (70-99); Potassium, Blood 4.2 mmol/L (3.5-5.5); Sodium, Blood 136 mmol/L (136-145); Total Protein, Blood 6.8 g/dL (6.4-8.2)
[2017-10-31 17:59] LABS: International Normalized Ratio 2.46; Prothrombin Time Results 24.1 Sec (9.7-11.5)
== END 2017-10-31 20:16 | disposition home or self-care (01) ==
LOC: ER 16:55
PROVIDERS: Emergency Medicine
DX: S09.90XA Unspecified injury of head, initial encounter (principal); R56.9 Unspecified convulsions; E87.8 Other disorders of electrolyte and fluid balance, not elsewhere classified; W01.198A Fall on same level from slipping, tripping and stumbling with subsequent striking against other object, initial encounter; Z88.0 Allergy status to penicillin; Z91.048 Other nonmedicinal substance allergy status; Z88.5 Allergy status to narcotic agent; Z88.8 Allergy status to other drugs, medicaments and biological substances; Z79.899 Other long term (current) drug therapy; Z79.84 Long term (current) use of oral hypoglycemic drugs; Z79.01 Long term (current) use of anticoagulants; J44.9 Chronic obstructive pulmonary disease, unspecified; I10 Essential (primary) hypertension; E11.9 Type 2 diabetes mellitus without complications; E78.00 Pure hypercholesterolemia, unspecified; Z87.891 Personal history of nicotine dependence
CPT/HCPCS: 70450; 80053; 85025; 85610; 93005; 93010; 99285-25

== ENCOUNTER → 2018-05-24 | Outpatient (CLI) | payer BC, MEDICARE ==
[2018-05-24 13:54] LABS: International Normalized Ratio 1.54; Prothrombin Time Results 15.7 Sec (9.7-11.5)
== END | disposition home or self-care (01) ==
LOC: LAB 13:13 → LAB SHORT 13:13
PROVIDERS: Nurse Practitioner Family
DX: Z48.812 Encounter for surgical aftercare following surgery on the circulatory system (principal); Z95.4 Presence of other heart-valve replacement
CPT/HCPCS: 36415; 85610

== ENCOUNTER 2019-02-22 08:08 | Emergency (ER) | payer BC, MEDICARE ==
[~2019-02-22] VITALS: Ht 160 cm; Wt 109.3 kg
[~2019-02-22 08:08] MED LIST changes: -OMEPRAZOLE MAGN20 MG PO; +OMEPRAZOLE20 MG PO; -POTCHL10ER PO
[2019-02-22 09:16] LABS: BASOPHILS ABSOLUTE AUTO 0.07 K/mm3 (0.00-0.23); BASOPHILS PERCENT AUTO 1 % (0-2); EOSINOPHILS ABSOLUTE AUTO 0.28 K/mm3 (0.00-0.68); EOSINOPHILS PERCENT AUTO 3 % (0-6); Hematocrit 40.9 % (33.0-51.0); Hemoglobin 12.9 g/dL (11.5-16.0); IMMATURE GRAN ABSOLUTE AUTO 0.04 K/mm3 (0.00-0.10); IMMATURE GRAN PERCENT AUTO 0 % (0-1); LYMPHOCYTES ABSOLUTE AUTO 1.83 K/mm3 (0.84-5.20); LYMPHOCYTES PERCENT AUTO 16 % (21-46); MONOCYTES PERCENT AUTO 8 % (4-13); Mean Corpuscular HGB 29.3 pg (26.0-34.0); Mean Corpuscular HGB Conc 31.5 g/dL (31.5-36.5); Mean Corpuscular Volume 93 fL (80-100); NEUTROPHILS ABSOLUTE AUTO 8.26 K/mm3 (1.96-9.15); NEUTROPHILS PERCENT AUTO 73 % (41-73); Platelet Count 252 K/mm3 (150-400); RDW Coefficient Variation 14.2 % (11.7-14.2); White Blood Cell Count 11.38 K/mm3 (4.00-11.30)
[2019-02-22 09:30] LABS: Bicarbonate Venous 25.2 mmol/L (24.0-30.0); PCO2 Venous 51.2 mmHg (38-42); PO2 Venous 37.6 mmHg (38-42); pH Blood Venous 7.35 (7.34-7.37)
[2019-02-22 09:31] LABS: Base Excess Venous 2.6 mmol/L
[2019-02-22 09:38] LABS: Alanine Aminotransfer (ALT/SGP 20 U/L (12-78); Albumin, Blood 2.7 g/dL (3.4-5.0); Albumin/Globulin Ratio 0.7 (0.8-1.8); Alk Phos 70 U/L (50-136); Anion Gap 7 mmol/L (6-16); Aspartate Aminotrans (AST/SGOT 14 U/L (12-37); Bilirubin, Total 0.2 mg/dL (0.1-1.0); Blood Urea Nitrogen 13 mg/dL (8-24); Bun/Creatinine Ratio 18.6 (12.0-20.0); CO2, Blood 27 mmol/L (21-32); Calcium, Blood 8.1 mg/dL (8.5-10.1); Chloride, Blood 103 mmol/L (98-108); Globulin, Blood 3.9 g/dL (2.2-4.0); Glomerular Filtration Rate >60 (60-); Glucose, Blood 99 mg/dL (70-99); Potassium, Blood 4.5 mmol/L (3.5-5.5); Sodium, Blood 137 mmol/L (136-145); Total Protein, Blood 6.6 g/dL (6.4-8.2)
[2019-02-22 09:46] LABS: Beta-hydroxybutyrate 1.7 mg/dL (0.2-2.8)
[2019-02-22 13:25] LABS: Source, Urine Clean Catch
[2019-02-22 13:27] LABS: Bilirubin, Urine Neg (Neg); Blood, Urine Neg (Neg); Glucose Qualitative, Urine Neg (Neg); Ketones, Urine 1+ (Neg); Leukocyte Esterase, Urine Neg (Neg); Nitrite, Urine Neg (Neg); Protein, Urine Neg (Neg); Urobilinogen, Urine NORM (Normal)
[2019-02-22 13:49] LABS: Appearance, Urine Clear (Clear); Color, Urine Yellow (P-Yellow)
== END 2019-02-22 14:25 | disposition home or self-care (01) ==
LOC: ER 08:08
PROVIDERS: Physician Assistant
DX: E11.65 Type 2 diabetes mellitus with hyperglycemia (principal); R42 Dizziness and giddiness; I10 Essential (primary) hypertension; J44.9 Chronic obstructive pulmonary disease, unspecified; E78.00 Pure hypercholesterolemia, unspecified; Z88.0 Allergy status to penicillin; Z88.5 Allergy status to narcotic agent; Z91.048 Other nonmedicinal substance allergy status; Z79.84 Long term (current) use of oral hypoglycemic drugs; Z79.899 Other long term (current) drug therapy; Z79.01 Long term (current) use of anticoagulants; Z86.73 Personal history of transient ischemic attack (TIA), and cerebral infarction without residual deficits; Z87.891 Personal history of nicotine dependence
CPT/HCPCS: 36415; 71046; 80053; 81003; 82010; 82803; 82947; 85025; 93005; 93010; 96360; 96361; 99285-25; J7030

== ENCOUNTER 2019-03-21 17:19 | Observation (INO) | payer BC, MEDICARE ==
[~2019-03-21] VITALS: Ht 157.5 cm; Wt 109.8 kg
[2019-03-21 18:07] LABS: BASOPHILS ABSOLUTE AUTO 0.06 K/mm3 (0.00-0.23); BASOPHILS PERCENT AUTO 1 % (0-2); EOSINOPHILS ABSOLUTE AUTO 0.11 K/mm3 (0.00-0.68); EOSINOPHILS PERCENT AUTO 1 % (0-6); Hematocrit 43.2 % (33.0-51.0); Hemoglobin 13.7 g/dL (11.5-16.0); IMMATURE GRAN ABSOLUTE AUTO 0.03 K/mm3 (0.00-0.10); IMMATURE GRAN PERCENT AUTO 0 % (0-1); LYMPHOCYTES ABSOLUTE AUTO 2.63 K/mm3 (0.84-5.20); LYMPHOCYTES PERCENT AUTO 26 % (21-46); MONOCYTES ABSOLUTE AUTO 0.81 K/mm3 (0.16-1.47); MONOCYTES PERCENT AUTO 8 % (4-13); Mean Corpuscular HGB 29.3 pg (26.0-34.0); Mean Corpuscular HGB Conc 31.7 g/dL (31.5-36.5); Mean Corpuscular Volume 92 fL (80-100); Mean Platelet Volume 10.4 fL (9.1-12.4); NEUTROPHILS PERCENT AUTO 64 % (41-73); Platelet Count 293 K/mm3 (150-400); RDW Coefficient Variation 14.6 % (11.7-14.2); RDW Standard Deviation 49.6 fL (35.1-46.3); Red Blood Cell Count 4.68 M/mm3 (3.80-5.20); White Blood Cell Count 10.04 K/mm3 (4.00-11.30)
[2019-03-21 18:28] LABS: Alanine Aminotransfer (ALT/SGP 24 U/L (12-78); Albumin, Blood 3.1 g/dL (3.4-5.0); Albumin/Globulin Ratio 0.7 (0.8-1.8); Alk Phos 69 U/L (50-136); Anion Gap 6 mmol/L (6-16); Aspartate Aminotrans (AST/SGOT 17 U/L (12-37); Bilirubin, Total 0.2 mg/dL (0.1-1.0); Blood Urea Nitrogen 7 mg/dL (8-24); Bun/Creatinine Ratio 11.7 (12.0-20.0); CO2, Blood 25 mmol/L (21-32); Calcium, Blood 8.9 mg/dL (8.5-10.1); Chloride, Blood 103 mmol/L (98-108); Globulin, Blood 4.2 g/dL (2.2-4.0); Glomerular Filtration Rate >60 (60-); Glucose, Blood 134 mg/dL (70-99); Potassium, Blood 4.4 mmol/L (3.5-5.5); Sodium, Blood 134 mmol/L (136-145); Total Protein, Blood 7.3 g/dL (6.4-8.2)
[2019-03-21 20:46] LABS: International Normalized Ratio 2.01; Prothrombin Time Results 20.7 Sec (9.7-11.5)
[2019-03-21 21:04] LABS: Source, Urine Clean Catch
[2019-03-21 21:07] LABS: Bilirubin, Urine Neg (Neg); Blood, Urine Neg (Neg); Glucose Qualitative, Urine Neg (Neg); Ketones, Urine 1+ (Neg); Leukocyte Esterase, Urine 1+ (Neg); Nitrite, Urine Neg (Neg); Protein, Urine Neg (Neg); Specific Gravity, Urine 1.005 (1.003-1.022); Urobilinogen, Urine NORM (Normal)
[2019-03-21 21:07] LABS: Valproic Acid 27.1 ug/mL (50.0-100.0)
[2019-03-21 21:08] LABS: Appearance, Urine Clear (Clear); Color, Urine Yellow (P-Yellow)
[2019-03-21 21:14] LABS: Red Blood Cells, Urine Rare /hpf (0-2); White Blood Cells, Urine Rare /hpf (0-5)
[2019-03-21 21:16] LABS: Bacteria Not Seen /hpf; Renal Epithelial Few /hpf (0-Rare); Squamous Epithelial Cells Rare /hpf (Few)
[2019-03-21] MEDS ORDERED: METO25ER PO (21:41)
[2019-03-21] MEDS ORDERED: PRENATAL TABLE1 EAC2 PO (21:42)
[2019-03-21] MEDS ORDERED: MERIBIN5 MG PO (21:43)
[2019-03-21] MEDS ORDERED: ASCO500 PO (21:43)
[2019-03-21] MEDS ORDERED: FERSU300 PO (21:44)
--- NOTE | 2019-03-22 01:59 | NUR ---
FLU SHOT ON HOLD UNTIL COMES IN, ASPT IS POOR HISTORIAN.
[2019-03-22 04:47] LABS: Hematocrit 38.4 % (33.0-51.0); Hemoglobin 12.2 g/dL (11.5-16.0); Mean Corpuscular HGB 29.1 pg (26.0-34.0); Mean Corpuscular HGB Conc 31.8 g/dL (31.5-36.5); Mean Corpuscular Volume 92 fL (80-100); Mean Platelet Volume 10.2 fL (9.1-12.4); Platelet Count 239 K/mm3 (150-400); RDW Coefficient Variation 14.6 % (11.7-14.2); RDW Standard Deviation 48.6 fL (35.1-46.3); Red Blood Cell Count 4.19 M/mm3 (3.80-5.20)
[2019-03-22 05:08] LABS: Alanine Aminotransfer (ALT/SGP 20 U/L (12-78); Albumin, Blood 2.6 g/dL (3.4-5.0); Albumin/Globulin Ratio 0.7 (0.8-1.8); Alk Phos 60 U/L (50-136); Anion Gap 6 mmol/L (6-16); Aspartate Aminotrans (AST/SGOT 11 U/L (12-37); Bilirubin, Total 0.3 mg/dL (0.1-1.0); Blood Urea Nitrogen 7 mg/dL (8-24); Bun/Creatinine Ratio 10.5 (12.0-20.0); CO2, Blood 28 mmol/L (21-32); Calcium, Blood 8.5 mg/dL (8.5-10.1); Chloride, Blood 106 mmol/L (98-108); Creatinine, Blood 0.67 mg/dL (0.40-1.00); Globulin, Blood 3.7 g/dL (2.2-4.0); Glomerular Filtration Rate >60 (60-); Glucose, Blood 102 mg/dL (70-99); Sodium, Blood 140 mmol/L (136-145); Total Protein, Blood 6.3 g/dL (6.4-8.2)
--- NOTE | 2019-03-22 17:20 | NUR ---
SHIFT SUMMARY- PT IS ALERT AND PLESANT. SHE SLEPT MOST OF THIS SHIFT. SHE HAD VISITORS IN TO SEE HER. PT EATING AND DRINKING WELL. PT/ OT EVALUATED WORKED WITH HER. PT UP THE THE CHAIR FOR SEVERAL HOURS.
--- NOTE | 2019-03-23 01:54 | NUR ---
BEGINNING SHIFT SUMMARY ASSUMED CARE OF PT AT 1900. PT IS ALERT AND ORIENTED TO SELF AND FAMILY, DENIES N/T IN EXTREMITIES, PT IS VERY LETHARGIC WHILE EATING HER MEAL. HEART SOUNDS REGULAR, FINE CRACKLES IN THE BASES OF LUNGS, DENIES SOB AT THIS TIME. PT IS INCONTINENT OF BLADDER DURING THE NIGHT. DENIES PAIN AT THIS TIME. CALL LIGHT IN REACH, BED IN LOWEST POSTION, WILL CONTINUE TO MONITOR.
--- NOTE | 2019-03-23 04:47 | NUR ---
END SHIFT SUMMARY PT WAS INCONTINENT T/O THE NIGHT. PT SLEPT T/O THE NIGHT. PT C/O PAIN IN HER L HIP, PT WAS REPOSITIONED AND HAS SLEPT SINCE. CALL LIGHT IN REACH, BED IN LOWEST POSTION, BED ALARM ON, WILL CONTINUE TO MONITOR UNTIL DAYSHIFT NURSE ARRIVES.
[2019-03-23 05:17] LABS: International Normalized Ratio 2.49; Prothrombin Time Results 25.3 Sec (9.7-11.5)
--- NOTE | 2019-03-23 06:14 | NUR ---
PROVIDER CALL BLADDER SCAN SHOWED >999ML; HOSPITALIST NOTIFIED, ORDERED STRAIGHT CATHETERIZATION AND TO RECHECK BLADDER SCAN IN 4HR. WILL NOTIFY DAYSHIFT NURSE.
--- NOTE | 2019-03-23 16:41 | NUR ---
SHIFT SUMMARY PT AWAKE AT START OF SHIFT. NO C/O. PULLED IV OUT OF RH, RIGHT AFTER SHIFT REPORT. DR CUNNINGHAM NOTIFIED TO LEAVE IV OUT. TELE MX D/C'D WELL. SR IN THE 8O'S PER MX TX. PT ABLE TO EAT BREAKFAST ON HER OWN AND TOOK ALL PO MEDS WHOLE WITH H2O. PT UP LATER WITH P/T AND WALKED IN RM AND DOWN VEGA TO WINDOW AND BACK. PT LATER ABLE TO WALK TO BTHRM HAVING LRG BM. MANUFACTURING APPLICATIONS ENGINEER OFFERED PT SHOWER; PT AGREED, BUT THEN WOULD NOT GET OUT. PT ASSISTED OUT OF SHOWER WITH HANDS ON WALKER, BUT WOULD NOT WALK OR EVEN SIT IN CHAIR. PT LET HERSELF DOWN ON HER KNEES AND WOULD NOT ASSIST IN GETTING UP TO CHAIR PLACED IN BTHR. LIFT USED TO GET PT BACK TO BED. BLADDER SCAN DONE PER ORDERS WITH 1ST PVD AT 67cc AT 1045. PT BLADDER SCANNED AGAIN AT [address] CUNNINGHAM NOTIFIED; NEW ORDERS RECEIVED. DISCUSSED PLACING MEYER CATH OR STRAIGHT CATH WITH PT. PRESENTLY ON BED ATTEMPTING TO VOID. PT EATING AND DRINKING FLUIDS WELL. C/O PAIN TO L HIP WHEN TURNING EARLIER TODAY. DR CUNNINGHAM NOTIFIED FOR TYLENOL, BUT PT HAS DECLINED SO FAR. REMINDED PT TO CALL IF SHE CHANGES HER MIND. BED ALARM ON FOR SAFETY. CALL LT IN REACH.
--- NOTE | 2019-03-23 18:11 | NUR ---
MEYER CATH TO BE PLACED. DISCUSSED OPTIONS WITH PT. ATTEMPTED TO GET PT TO VOID ON HER OWN FOR OVER 45 MINUTES; PT JUST WENT TO SLEEP. WOKE PT SEVERAL TIMES TO GET HER TO VOID, "I DON'T HAVE TO PEE, BUT I'LL TRY". PT DID NOT. FAMILY THEN TO RM AND DINNER HERE WELL. PT STILL EATING AND FAMILY IN RM. FAMILY UNABLE TO GET PT TO VOID EITHER. MEYER TO BE PLACED BY NOC SHIFT.
[2019-03-23 21:46] LABS: Source, Urine Catheter
[2019-03-23 21:51] LABS: Appearance, Urine Clear (Clear); Bilirubin, Urine Neg (Neg); Blood, Urine Neg (Neg); Color, Urine Yellow (P-Yellow); Glucose Qualitative, Urine Neg (Neg); Ketones, Urine 1+ (Neg); Leukocyte Esterase, Urine 1+ (Neg); Nitrite, Urine Neg (Neg); Protein, Urine Neg (Neg); Urobilinogen, Urine NORM (Normal)
[2019-03-23 21:56] LABS: Bacteria Mod /hpf; Red Blood Cells, Urine 0-2 /hpf (0-2); Squamous Epithelial Cells Rare /hpf (Few)
--- NOTE | 2019-03-23 23:08 | NUR ---
BEGINNING SHIFT SUMMARY ASSUMED CARE OF PT AT 1900. PT IS ALERT AND ORIENTED TO SELF AND FAMILY, DENIES N/T AT THIS TIME. HEART SOUNDS REGULAR, LUNG SOUNDS DIMINISHED, DENIES SOB/CP AT THIS TIME. MEYER PLACED DUE TO URINE RETENTION, SAMPLE SENT, URINE CLEAR AND YELLOW. PT C/O PAIN IN HE L HIP AND BACK, MEDICATED PER EMAR. CALL LIGHT IN REACH, BED IN LOWEST POSTION, BED ALARM ON, WILL CONTINUE TO MONITOR.
--- NOTE | 2019-03-24 04:47 | NUR ---
END SHIFT SUMMARY NO ACUTE CHANGES T/O THE NIGHT. PT HAS BEEN ALERT MOST OF THE NIGHT AND HAD DIFFICULTY SLEEPING. CATHETER DRAINING WELL, URINE CLEAR AND YELLOW. PT C/O PAIN IN HER HIP, MEDICATED PER EMAR. PT REPOSITIONED FOR COMFORT. CALL LIGHT IN REACH, BED IN LOWEST POSITION, WILL CONTINUE TO MONITOR UNTIL DAYSHIFT NURSE ARRIVES.
[2019-03-24 05:13] LABS: International Normalized Ratio 2.27; Prothrombin Time Results 23.2 Sec (9.7-11.5)
--- NOTE | 2019-03-24 12:18 | NUR ---
MEYER PER REPORT MEEYR WAS DIFFICULTY TO INSERT, TODAY DRAINAGE IS BLOODY. DR CUNNINGHAM INFORMED, NO NEW ORDERS
--- NOTE | 2019-03-24 17:52 | NUR ---
PT A/O TO SELF AND FAMILY ONLY. SLEEPING ALOT TODAY. PHYSICAL THERAPY DID GET PT UP TO CHAIR WITH WALKER AND GAIT BELT, DONE WITH DIFFICULTY. SEE P.T. NOTES. PT RETURNED TO BED USING A SIT TO STAND, MEYER CATH WITH BLOOD TINGED URINE, DRAINING WELL. NO ACUTE CHANGES NOTED, WILL CONTINUE TO MONITOR AND REPORT TO ONCOMING RN
--- NOTE | 2019-03-24 23:55 | NUR ---
PT. SLEEPING COMFORTABLY IN BED. NO APPARENT DISTRESS NOTED. CALL LIGHT WITHIN REACH AND SIDE RAILS UP X2. WILL CONT TO MONITOR.
--- NOTE | 2019-03-25 05:17 | NUR ---
SHIFT SUMMARY- PT. ALERT TO SELF WITH INTERMITTENT CONFUSION. PT. SLEPT WELL DURING THE NIGHT. DENIED C/O PAIN OR DISCOMFORT. MEYER CATHETER IN PLACE AND DRAINING WELL. PT. AWAITING ON PLACEMENT. CALL LIGHT WITHIN REACH AND SIDE RAILS UP X2. WILL CONT TO MONITOR.
[2019-03-25 05:32] LABS: International Normalized Ratio 2.25
--- NOTE | 2019-03-25 16:19 | NUR ---
ON 03/25/2019 PATIENT GAVE PERMISSION FOR STUDENT NURSE TO PROVIDE CARE ON 03/26/2019.
--- NOTE | 2019-03-25 17:01 | NUR ---
SHIFT SUMMARY PT HAS HAD NO ACUTE CHANGES THIS SHIFT, NO COMPLAINTS OF ANY KIND. PT WAS UP TO BSC W/HELP FROM PT, THEN TO CHAIR FOR LUNCH. AFTER LUNCH PT WAS DIFFICULT TO XFER BACK TO BED- 2 PERSON ASSIST, PT UNABLE TO FOLLOW DIRECTIONS, BED HAD TO BE MOVED UP TO PATIENT BECAUSE SHE WAS UNABLE TO TAKE THE 2 STEPS TO THE BED. PT IS BEDRESTING AT THIS TIME, @ BEDSIDE W/ENGINE OILER, ALARM IN PLACE, CALL LIGHT IN REACH, NO NEEDS AT THIS TIME.
--- NOTE | 2019-03-25 17:17 | NUR ---
Inital spiritual care note: Mrs. Watson was alone in room. She appears mildly confused and pleasant. She adores her and tells me he takes good care of her. It is unclear to me that she understands why she is here, but this does not appear to bother her. She reports a strong valentina and was appreciaitve of prayer and spiritual encouragement. I will remain available to pt and family.
--- NOTE | 2019-03-25 22:37 | NUR ---
PT. ALERT AND TALKATIVE THIS EVENING. DENIES ANY PAIN OR DISCOMFORT. COFFEE GIVEN PER PT. REQUEST. PT. REPOSITIONED Q2HR AND PRN. MEYER CATHETER IN PLACE AND DRAINING WELL. PT. RESTING COMFORTABLY IN BED, NO APPARENT DISTRESS NOTED. CALL LIGHT WITHIN REACH AND SIDE RAILS UP X2. WILL CONT TO MONITOR.
--- NOTE | 2019-03-26 05:16 | NUR ---
SHIFT SUMMARY- PT. AWAKE T/O MOST OF THE SHIFT WATCHING TV. DENIED ANY PAIN OR DISCOMFORT. REPOSITIONED Q2HR AND FOR COMFORT. ATTENDS AND MEYER CATHETER IN PLACE. NO ACUTE CHANGES OVERNIGHT. CALL LIGHT WITHIN REACH AND SIDE RAILS UP X2. WILL CONT TO MONITOR.
[2019-03-26 05:53] LABS: BASOPHILS ABSOLUTE AUTO 0.06 K/mm3 (0.00-0.23); BASOPHILS PERCENT AUTO 1 % (0-2); EOSINOPHILS ABSOLUTE AUTO 0.23 K/mm3 (0.00-0.68); EOSINOPHILS PERCENT AUTO 3 % (0-6); Hematocrit 38.4 % (33.0-51.0); Hemoglobin 12.5 g/dL (11.5-16.0); IMMATURE GRAN ABSOLUTE AUTO 0.02 K/mm3 (0.00-0.10); IMMATURE GRAN PERCENT AUTO 0 % (0-1); LYMPHOCYTES ABSOLUTE AUTO 2.22 K/mm3 (0.84-5.20); LYMPHOCYTES PERCENT AUTO 30 % (21-46); MONOCYTES ABSOLUTE AUTO 1.04 K/mm3 (0.16-1.47); MONOCYTES PERCENT AUTO 14 % (4-13); Mean Corpuscular HGB 29.8 pg (26.0-34.0); Mean Corpuscular HGB Conc 32.6 g/dL (31.5-36.5); Mean Corpuscular Volume 91 fL (80-100); Mean Platelet Volume 11.1 fL (9.1-12.4); NEUTROPHILS ABSOLUTE AUTO 3.92 K/mm3 (1.96-9.15); NEUTROPHILS PERCENT AUTO 52 % (41-73); Platelet Count 225 K/mm3 (150-400); RDW Coefficient Variation 14.6 % (11.7-14.2); RDW Standard Deviation 49.1 fL (35.1-46.3); White Blood Cell Count 7.49 K/mm3 (4.00-11.30)
[2019-03-26 06:00] LABS: International Normalized Ratio 2.04
[2019-03-26 06:14] LABS: Anion Gap 8 mmol/L (6-16); Blood Urea Nitrogen 11 mg/dL (8-24); Bun/Creatinine Ratio 15.8 (12.0-20.0); CO2, Blood 25 mmol/L (21-32); Calcium, Blood 8.5 mg/dL (8.5-10.1); Chloride, Blood 104 mmol/L (98-108); Glomerular Filtration Rate >60 (60-); Glucose, Blood 107 mg/dL (70-99); Potassium, Blood 4.4 mmol/L (3.5-5.5); Sodium, Blood 137 mmol/L (136-145)
--- NOTE | 2019-03-26 17:23 | NUR ---
SHIFT SUMMARY NO ACUTE CHANGES. PATIENT DENIES PAIN, NAUSEA, AND SHORTNESS OF BREATH. PATIENT UP 2 ASSIST W/FWW AND GAIT BELT. PATIENT UP IN CHAIR FOR MEALS. PATIENT WORKED WITH PT AND OT. PATIENT RECOMMENDED TO GO HOME WITH HOME HEALTH. PALLIATIVE CARE CONSULTED. MITCH OVIEDO. PATIENT'S VERY UPSET ABOUT PATIENT NOT GOING TO SNF. CARE MANAGEMENT FOLLOWING CASE. CALL LIGHT IN REACH.
--- NOTE | 2019-03-26 17:46 | NUR ---
Clinical Visit: Pt is alert, not oriented. She does not know the date, she does not know the facility. She denies pain and anxiety. Pt is able to answer some simple questions, however, not able to grasp some concepts. She states she knows what code status is, but she cannot tell me what it is. Pt is evaluated for SNF placement, and may not qualify. She is a full code currently.
--- NOTE | 2019-03-26 17:50 | NUR ---
Clinicial Visit: Pt is resting comfortably in bed. She states that she is not experiencing pain or anxiety. , Waylon, is at bedside. He reports that she has declined in the last couple months. She is falling, she is "making things up in her head," she can't walk. Per Waylon, six months ago, she was able to walk in the home, make coffee, and also use the restroom without help. She is now, so weak she cannot walk safely in the home, she is incontinent. She is able to feed herself. Waylon states that pt does have a POLST form filled out. He has the POLST registry number and will call tomorrow with it so that the hospital can get a copy. He may be able to find it. He states that she does not want to be maintained on machines terminal supervisor, but would accept CPR and intubation if needed. Waylon expresses sadness and frustration at her declining function. He works food safety technician hours. He is able to take care of her when he is at home, but cannot afford caregivers for her. He states that he may have to divorce her to get her to qualify for medicaid and the care that she needs to stay safe. He begins crying, severe caregiver stress is evident here. Supportive conversation with Waylon. Will attempt to continue conversation with . Instructed that she does qualify for hospice care at this time, due to her declining fuction. It does not appear that he is ready for this conversation yet, however, it is mentioned that she would probably qualify very soon. FAST 7c KPS 40% PPS 40%
[2019-03-27 05:12] LABS: BASOPHILS ABSOLUTE AUTO 0.06 K/mm3 (0.00-0.23); BASOPHILS PERCENT AUTO 1 % (0-2); EOSINOPHILS ABSOLUTE AUTO 0.32 K/mm3 (0.00-0.68); EOSINOPHILS PERCENT AUTO 5 % (0-6); Hematocrit 38.6 % (33.0-51.0); Hemoglobin 12.2 g/dL (11.5-16.0); IMMATURE GRAN ABSOLUTE AUTO 0.02 K/mm3 (0.00-0.10); IMMATURE GRAN PERCENT AUTO 0 % (0-1); LYMPHOCYTES ABSOLUTE AUTO 1.83 K/mm3 (0.84-5.20); LYMPHOCYTES PERCENT AUTO 26 % (21-46); MONOCYTES ABSOLUTE AUTO 1.03 K/mm3 (0.16-1.47); MONOCYTES PERCENT AUTO 15 % (4-13); Mean Corpuscular HGB 29.2 pg (26.0-34.0); Mean Corpuscular HGB Conc 31.6 g/dL (31.5-36.5); Mean Corpuscular Volume 92 fL (80-100); Mean Platelet Volume 10.4 fL (9.1-12.4); NEUTROPHILS ABSOLUTE AUTO 3.74 K/mm3 (1.96-9.15); NEUTROPHILS PERCENT AUTO 53 % (41-73); Platelet Count 254 K/mm3 (150-400); RDW Coefficient Variation 14.6 % (11.7-14.2); RDW Standard Deviation 49.5 fL (35.1-46.3); Red Blood Cell Count 4.18 M/mm3 (3.80-5.20)
[2019-03-27 05:26] LABS: International Normalized Ratio 1.74
[2019-03-27 05:33] LABS: Anion Gap 4 mmol/L (6-16); Blood Urea Nitrogen 11 mg/dL (8-24); Bun/Creatinine Ratio 14.5 (12.0-20.0); CO2, Blood 30 mmol/L (21-32); Calcium, Blood 8.5 mg/dL (8.5-10.1); Chloride, Blood 105 mmol/L (98-108); Creatinine, Blood 0.76 mg/dL (0.40-1.00); Glomerular Filtration Rate >60 (60-); Glucose, Blood 110 mg/dL (70-99); Potassium, Blood 4.2 mmol/L (3.5-5.5); Sodium, Blood 139 mmol/L (136-145)
--- NOTE | 2019-03-27 05:33 | NUR ---
SHIFT SUMMARY- NO ACUTE EVENTS OVERNIGHT. PT. SLEPT MOST OF THE EVENING. NO APPARENT DISTRESS NOTED. MEYER CATHETER D/C'D YESTERDAY, PT. VOIDING IN ATTENDS. DENIED ANY COMPLAINTS DURING THE SHIFT. CALL LIGHT WITHIN REACH AND SIDE RAILS UP X2. WILL CONT TO MONITOR.
--- NOTE | 2019-03-27 16:29 | NUR ---
SHIFT SUMMARY NO ACUTE CHANGES. PATIENT DENIES PAIN, NAUSEA, AND SHORTNESS OF BREATH. PATIENT UP IN CHAIR MOST OF SHIFT. PATIENT UP TWO PERSON WITH GAIT BELT AND FWW. PATIENT WORKED WITH PT/OT. PATIENT'S MET WITH CARE MANAGEMENT AND DOCTOR FOR DISCHARGE PLANNING. PATIENT'S STILL CONCERNED ABUT THE ABILITY TO CARE FOR PATIENT AT HOME. CALL LIGHT IN REACH.
[2019-03-27] MEDS ORDERED: ACET500 PO (17:54)
[2019-03-27] MEDS ORDERED: NITR100CA PO (17:54)
--- NOTE | 2019-03-27 18:23 | NUR ---
DISCHARGE DISCHARGE MEDICATIONS AND INSTRUCTIONS EXPLAINED TO PATIENT'S . HE STATED UNDERSTANDING. [facility] WILL CALL PATIENT AT HOME WITH FOLLOW UP APPOINTMENT. PATIENT TO RESUME HOME HEALTH WITH [facility]. IV REMOVED WITHOUT DIFFICULTY. BELONGINGS WITH PATIENT. PATIENT TRANSFERED TO PRIVATE VEHICLE VIA WHEELCHAIR.
== END 2019-03-27 18:17 | disposition home health service (06) ==
LOC: ER 17:19 → MEDS 17:20
PROVIDERS: Emergency Medicine; Family Medicine; Internal Medicine Endocrinology, Diabetes & Metabolism; ADMIT Internal Medicine
DX: R53.1 Weakness (principal); I11.0 Hypertensive heart disease with heart failure; E66.9 Obesity, unspecified; E11.9 Type 2 diabetes mellitus without complications; I67.2 Cerebral atherosclerosis; I50.32 Chronic diastolic (congestive) heart failure; F01.50 Vascular dementia, unspecified severity, without behavioral disturbance, psychotic disturbance, mood disturbance, and anxiety; R33.9 Retention of urine, unspecified; N39.0 Urinary tract infection, site not specified; K59.00 Constipation, unspecified; R06.09 Other forms of dyspnea; J44.9 Chronic obstructive pulmonary disease, unspecified; E78.5 Hyperlipidemia, unspecified; B95.2 Enterococcus as the cause of diseases classified elsewhere; G93.40 Encephalopathy, unspecified; Z91.81 History of falling; Z88.6 Allergy status to analgesic agent; Z88.0 Allergy status to penicillin; Z88.8 Allergy status to other drugs, medicaments and biological substances; Z88.5 Allergy status to narcotic agent; Z95.2 Presence of prosthetic heart valve; Z79.899 Other long term (current) drug therapy; Z79.01 Long term (current) use of anticoagulants; Z87.891 Personal history of nicotine dependence; Z85.118 Personal history of other malignant neoplasm of bronchus and lung; Z79.84 Long term (current) use of oral hypoglycemic drugs; Z68.41 Body mass index [BMI] 40.0-44.9, adult; Z86.73 Personal history of transient ischemic attack (TIA), and cerebral infarction without residual deficits
CPT/HCPCS: 36415; 51702; 70450; 71046; 80048; 80053; 80164; 81001; 85025; 85027; 85610; 87077; 87086; 87186; 93005; 93010; 94760; 96365; 96366; 97110; 97116; 97162; 97166; 97530; 97535; 99285-25; A9270-GY; G0378; J0696; J7030; P9612

== ENCOUNTER 2020-02-01 09:26 | Inpatient (IN) | payer BC, MEDICARE ==
[~2020-02-01] VITALS: Ht 154.9 cm; Wt 107.6 kg
[~2020-02-01 09:26] MED LIST changes: +ACET500 PO; -DIVA500EC PO; -DULO60 PO; +FERSU300 PO; -FURO20 PO; -GABA300 PO; -Glucophage1000 MG PO; +NITR100CA PO; -OMEPRAZOLE20 MG PO; -Pravachol40 MG PO
[2020-02-01 10:06] LABS: BASOPHILS ABSOLUTE AUTO 0.08 K/mm3 (0.00-0.23); BASOPHILS PERCENT AUTO 1 % (0-2); EOSINOPHILS ABSOLUTE AUTO 0.22 K/mm3 (0.00-0.68); EOSINOPHILS PERCENT AUTO 3 % (0-6); Hematocrit 43.2 % (33.0-51.0); IMMATURE GRAN ABSOLUTE AUTO 0.04 K/mm3 (0.00-0.10); IMMATURE GRAN PERCENT AUTO 1 % (0-1); LYMPHOCYTES ABSOLUTE AUTO 1.54 K/mm3 (0.84-5.20); LYMPHOCYTES PERCENT AUTO 18 % (21-46); MONOCYTES ABSOLUTE AUTO 0.84 K/mm3 (0.16-1.47); MONOCYTES PERCENT AUTO 10 % (4-13); Mean Corpuscular HGB 29.7 pg (26.0-34.0); Mean Corpuscular HGB Conc 32.4 g/dL (31.5-36.5); Mean Corpuscular Volume 92 fL (80-100); Mean Platelet Volume 10.4 fL (9.1-12.4); NEUTROPHILS ABSOLUTE AUTO 5.89 K/mm3 (1.96-9.15); NEUTROPHILS PERCENT AUTO 68 % (41-73); Platelet Count 261 K/mm3 (150-400); RDW Coefficient Variation 14.9 % (11.7-14.2); RDW Standard Deviation 50.5 fL (35.1-46.3); Red Blood Cell Count 4.71 M/mm3 (3.80-5.20); White Blood Cell Count 8.61 K/mm3 (4.00-11.30)
[2020-02-01 10:20] LABS: International Normalized Ratio 2.56
[2020-02-01 10:31] LABS: Alanine Aminotransfer (ALT/SGP 17 U/L (12-78); Albumin, Blood 2.9 g/dL (3.4-5.0); Albumin/Globulin Ratio 0.7 (0.8-1.8); Alk Phos 62 U/L (50-136); Anion Gap 8 mmol/L (6-16); Aspartate Aminotrans (AST/SGOT 18 U/L (12-37); Bilirubin, Total 0.4 mg/dL (0.1-1.0); Blood Urea Nitrogen 7 mg/dL (8-24); Bun/Creatinine Ratio 10.8 (12.0-20.0); CO2, Blood 26 mmol/L (21-32); Calcium, Blood 9.1 mg/dL (8.5-10.1); Chloride, Blood 100 mmol/L (98-108); Creatinine, Blood 0.65 mg/dL (0.40-1.00); Globulin, Blood 4.2 g/dL (2.2-4.0); Glomerular Filtration Rate >60 (60-); Glucose, Blood 130 mg/dL (70-99); Potassium, Blood 3.6 mmol/L (3.5-5.5); Sodium, Blood 134 mmol/L (136-145); Total Protein, Blood 7.1 g/dL (6.4-8.2)
[2020-02-01 10:34] LABS: Valproic Acid 52.6 ug/mL (50.0-100.0)
[2020-02-01 11:58] LABS: Source, Urine Catheter
[2020-02-01 12:09] LABS: Appearance, Urine Clear (Clear); Bilirubin, Urine Neg (Neg); Blood, Urine Neg (Neg); Color, Urine Yellow (P-Yellow); Glucose Qualitative, Urine Neg (Neg); Ketones, Urine 2+ (Neg); Leukocyte Esterase, Urine Neg (Neg); Nitrite, Urine Neg (Neg); Protein, Urine Neg (Neg); Urobilinogen, Urine NORM (Normal)
[2020-02-01 13:58] LABS: Influenza A, PCR Negative (NEGATIVE); Influenza B, PCR Negative (NEGATIVE); Resp Syncytial Virus, PCR Negative (NEGATIVE); SARS-Cov-2 (COVID-19) PCR, MMC Negative (NEGATIVE)
[2020-02-01] MEDS ORDERED: Depakote ER500 MG PO (14:23)
[2020-02-01] MEDS ORDERED: FURO40 PO (14:25)
[2020-02-01] MEDS ORDERED: GLUCOPHAGE1000 M1 PO (14:26)
[2020-02-01] MEDS ORDERED: GABA300 PO (14:26)
[2020-02-01] MEDS ORDERED: Pravachol40 MG PO (14:26)
[2020-02-01] MEDS ORDERED: METO25 PO (14:27)
[2020-02-01] MEDS ORDERED: POTA10T PO (14:27)
[2020-02-01] MEDS ORDERED: OMEP20ER PO (14:28)
[2020-02-01] MEDS ORDERED: DULO60 PO (14:28)
[2020-02-01] MEDS ORDERED: WARF3 PO (14:29)
[2020-02-01 14:33] LABS: Base Excess Venous 3.6 mmol/L; Bicarbonate Venous 26.6 mmol/L (24.0-30.0); PCO2 Venous 47.8 mmHg (38-42); PO2 Venous 63.6 mmHg (38-42); pH Blood Venous 7.39 (7.34-7.37)
[2020-02-01] MEDS ORDERED: PRENATAL TABLE1 EAC2 PO (15:24)
[2020-02-01] MEDS ORDERED: MERIBIN5 MG PO (15:25)
[2020-02-01] MEDS ORDERED: ASCO500 PO (15:25)
[2020-02-01] MEDS ORDERED: IRON PO (15:26)
[2020-02-01] MEDS ORDERED: TUMS500 MG PO (15:27)
[2020-02-01] MEDS ORDERED: Vitamin D2000 UNIT PO (15:28)
[2020-02-01 18:22] LABS: U Amphetamine Screen Not Detected; U Barbituate Screen Not Detected; U Benzodiazapine Screen Not Detected; U Buprenorphine Screen Not Detected; U Cannabinoids Screen Not Detected; U Cocaine Screen Not Detected; U Methadone Screen Not Detected; U Methamphetamine Screen Not Detected; U Opiates Screen Not Detected; U Oxycodone Screen Not Detected; U Phencyclidine Screen Not Detected; U Propoxyphene Screen Not Detected
--- NOTE | 2020-02-01 18:32 | NUR ---
PT ARRIVED TO THE MEDICAL FLOOR AT THIS TIME VIA GURNEY, THE PT OPENS HER EYES HOWEVER IS NON VERBAL AT THIS TIME, PT NBRIEFLY STOPPED BY AND SAID HE WOULD BE BACK EARLY TOMMORROW, PT APPEARS TO BE BREATHING EASILY AT REST AT THIS TIME, PT ORIENTED TO THE CALL SYSTEM, CALL LIGHT IN REACH
--- NOTE | 2020-02-02 04:04 | NUR ---
SHIFT SUMMARY ASSUMED CARE OF PT AT 1900. PT WAS VERY LETHARGIC BUT HER EYES WOULD TRACK MOVEMENT. THEN AROUND 0000 PT BEGAN TO TALK AND WAS ABLE TO ANSWER YES AND NO QUESTIONS, PT STILL UNABLE TO ANSWER ORIENTATION QUESTIONS. PT HAS A WHITE SORE IN THE BACK OF HER MOUTH WHICH IS PAINFUL TO TOUCH. HEART SOUNDS REGULAR, TELE SHOWS SINUS RHYTHMN. LUNG SOUNDS ARE DIMINISHED. PT HAS CATHETER DRAINING, URINE IS DARK AND CLOUDY. PT HAS RA UNDER L BREAST AND BELLY FOLDS. CALL LIGHT IN REACH, BED IN LOWEST POSTION, WILL CONTINUE TO MONITOR.
[2020-02-02 05:42] LABS: Alanine Aminotransfer (ALT/SGP 16 U/L (12-78); Albumin, Blood 2.5 g/dL (3.4-5.0); Albumin/Globulin Ratio 0.7 (0.8-1.8); Alk Phos 55 U/L (50-136); Anion Gap 8 mmol/L (6-16); Aspartate Aminotrans (AST/SGOT 14 U/L (12-37); Bilirubin, Total 0.4 mg/dL (0.1-1.0); Blood Urea Nitrogen 8 mg/dL (8-24); Bun/Creatinine Ratio 11.2 (12.0-20.0); CO2, Blood 25 mmol/L (21-32); Calcium, Blood 8.8 mg/dL (8.5-10.1); Chloride, Blood 105 mmol/L (98-108); Creatinine, Blood 0.72 mg/dL (0.40-1.00); Globulin, Blood 3.8 g/dL (2.2-4.0); Glomerular Filtration Rate >60 (60-); Glucose, Blood 112 mg/dL (70-99); Sodium, Blood 138 mmol/L (136-145); Total Protein, Blood 6.3 g/dL (6.4-8.2)
[2020-02-02 05:53] LABS: BASOPHILS ABSOLUTE AUTO 0.08 K/mm3 (0.00-0.23); BASOPHILS PERCENT AUTO 1 % (0-2); EOSINOPHILS ABSOLUTE AUTO 0.12 K/mm3 (0.00-0.68); EOSINOPHILS PERCENT AUTO 1 % (0-6); Hematocrit 42.4 % (33.0-51.0); Hemoglobin 13.6 g/dL (11.5-16.0); IMMATURE GRAN ABSOLUTE AUTO 0.03 K/mm3 (0.00-0.10); IMMATURE GRAN PERCENT AUTO 0 % (0-1); LYMPHOCYTES ABSOLUTE AUTO 2.44 K/mm3 (0.84-5.20); LYMPHOCYTES PERCENT AUTO 28 % (21-46); MONOCYTES ABSOLUTE AUTO 1.16 K/mm3 (0.16-1.47); MONOCYTES PERCENT AUTO 13 % (4-13); Mean Corpuscular HGB 29.4 pg (26.0-34.0); Mean Corpuscular HGB Conc 32.1 g/dL (31.5-36.5); Mean Corpuscular Volume 92 fL (80-100); Mean Platelet Volume 10.8 fL (9.1-12.4); NEUTROPHILS ABSOLUTE AUTO 4.89 K/mm3 (1.96-9.15); NEUTROPHILS PERCENT AUTO 56 % (41-73); Platelet Count 230 K/mm3 (150-400); RDW Coefficient Variation 15.1 % (11.7-14.2); RDW Standard Deviation 50.7 fL (35.1-46.3); Red Blood Cell Count 4.63 M/mm3 (3.80-5.20); White Blood Cell Count 8.72 K/mm3 (4.00-11.30)
--- NOTE | 2020-02-02 11:48 | NUR ---
Echocardiogram completed.
--- NOTE | 2020-02-02 16:20 | NUR ---
PT IS A/OX2, TO SELF AND FAMILY, PT IS CONSIDERABLY MORE ALERT TODAY COMPARED TO YESTERDAY, IS TALKING IN SHORT SENTANCES AND ABLE TO FOLLOW COMMANDS, NO INCREASE IN NEURO DEFICITS SO FAR THIS SHIFT, THE PT WAS ABLE EAT LUNCH WITHOUT INCIDENT, THE PT APPEARS TO BE BREATHING EASILY ON RA AT THIS TIME, THE PT WAS UP TO SEE THE PT AND WAS HAPPY WITH THE PTS PROGRESS, CALL LIGHT IN REACH, WILL CONTINUE TO MOMNITOR AND ASSESS FOR CHANGES
[2020-02-02 18:21] LABS: International Normalized Ratio 1.32; Prothrombin Time Results 13.9 Sec (9.7-11.5)
--- NOTE | 2020-02-02 18:45 | NUR ---
RESPITORY THERAPY CAME INTO ROOM AND SAID THEY NEEDED TO GIVE BREATHING TREATMENT WAS UNABLE TO HELP ASSIST FEED PT.
--- NOTE | 2020-02-02 22:13 | NUR ---
1953 PT LYING IN BED, DENIES ANY DISCOMFORT AT THIS TIME. NO APPARENT SIGNS OF DISTRESS. CALL LIGHT IS IN REACH. BED ALARM IS ON.
--- NOTE | 2020-02-02 22:25 | NUR ---
PT LYING IN BED, EYES CLOSED, APPEARS TO BE RESTING. BREATHING IS EVEN, UNLABORED. NO APPARENT SIGNS OF DISTRESS. CALL LIGHT IS IN REACH. BED ALARM IS ON.
--- NOTE | 2020-02-02 23:26 | NUR ---
PT LYING IN BED, EYES CLOSED, APPEARS TO BE RESTING. WAKES EASILY TO VERBAL STIMULI. NO APPARENT SIGNS OF DISTRESS. CALL LIGHT IS IN REACH. BED ALARM IS ON.
--- NOTE | 2020-02-03 01:47 | NUR ---
PT LYING IN BED, AWAKE, WATCHING TV. NO APPARENT SIGNS OF DISTRESS. CALL LIGHT IS IN REACH. BED ALARM IS ON.
--- NOTE | 2020-02-03 04:14 | NUR ---
PT LYING IN BED, EYES CLOSED, APPEARS TO BE RESTING. BREATHING IS EVEN, UNLABOED. NO APPARENT SIGNS OF DISTRESS. CALL LIGHT IS IN REACH. BED ALARM IS ON.
--- NOTE | 2020-02-03 04:15 | NUR ---
PT IS AAO X 4 BUT SLOW TO RESPOND. PT DENIED ANY DISCOMFORT FOR THIS SHIFT. ON RA. TELE NSR. BS WAS 137, 138. PT HAS MITCH.
[2020-02-03 05:49] LABS: International Normalized Ratio 1.34; Prothrombin Time Results 14.1 Sec (9.7-11.5)
--- NOTE | 2020-02-03 06:01 | NUR ---
PT LYING IN BED, EYES CLOSED, APPEARS TO BE RESTING. WAKES EASILY TO VERBAL STIMULI. NO APPARENT SIGNS OF DISTRESS. CALL LIGHT IS IN REACH. BED ALARM IS ON. NO OTHER CHANGES THIS SHIFT.
--- NOTE | 2020-02-03 16:48 | NUR ---
SHIFT SUMMARY PT IS ALERT. AT START OF SHIFT PT WAS UNABLE TO STATE NAME, HER LOCATION, AND YEAR. SHIFT CONTINUED PT WAS ABLE TO STATE NAME. PT HAS BEEN FRIENDLY AND IN GOOD SPIRITS DURING SHIFT. PT SLOW TO RESPOND AND RESPONCE IS INAPPROPRIATE OR OFF TOPIC. BED SIDE SWALLOW EXAM WAS DONE BY THIS NURSE AND EDDA SNOW, PT ABLE TO EAT AND DRINK. ADVISE NO STRAWS. PT DENIES P/N/V. DURING SHIFT PT RECEIVED MRI. PT RESTING IN ROOM, CALL LIGHT WITH IN REACH, BED IN LOWEST POSITION. WHEN LEAVING ROOM PT EDUCATED ON USE OF CALL LIGHT THROUGHOUT SHIFT.
--- NOTE | 2020-02-03 22:55 | NUR ---
2054 PT LYING IN BED, DENIES ANY DISCOMFORT AT THIS TIME. NO APPARENT SIGNS OF DISTRESS. CALL LIGHT IS IN REACH. BED ALARM IS ON.
--- NOTE | 2020-02-04 00:40 | NUR ---
PT LYING IN BED, AWAKE, WATCHING TV. NO APPARENT SIGNS OF DISTRESS. DENIES NEED FOR ANYTHING AT THIS TIME. CALL LIGHT IS IN REACH. BED ALARM IS ON.
--- NOTE | 2020-02-04 02:37 | NUR ---
PT LYING IN BED, AWAKE, DENIES NEED FOR ANYTHING AT THIS TIME. NO APPARENT SIGNS OF DISTRESS. CALL LIGHT IS IN REACH. BED ALARM IS ON. PT'S MITCH WAS DC'D ON DAYSHIFT RIGHT BEFORE THE CHANGE OF SHIFT, PT HAD NOT VOIDED YET. BLADDER SCAN JUST DONE, NOT POST VOID, 217 IN BLADDER. WILL CONT. TO MONITOR.
--- NOTE | 2020-02-04 05:56 | NUR ---
PT LYING IN BED, EYES CLOSED, APPEARS TO RESTING. BREATHING IS EVEN, UNLABORED. NO APPARENT SIGNS OF DISTRESS. CALL LIGHT IS IN REACH. BED ALARM IS ON. NO OTHER CHANGES THIS SHIFT.
--- NOTE | 2020-02-04 05:56 | NUR ---
0400 ASSISTED DIRECTOR OF REHABILITATIVE SERVICES IN TURNING AND CHANGING PT. PT TOLERATED OK. NO OTHER APPARENT SIGNS OF DISTRESS. CALL LIGHT IS IN REACH. BED ALARM IS ON.
--- NOTE | 2020-02-04 05:57 | NUR ---
PT IS AAO X 1, SELF. ON RA. TELE NSR WITH 1ST DEGREE BLOCK. BLOOD SUGAR WAS 183. NO REPORTS OF DISCOMFORT FOR THIS SHIFT. PT HAD MEYER DC'D RIGHT BEFORE CHANGE OF SHIFT. PT HAD NOT URINATED BY 225, BLADDER SCAN SHOWED 217.
[2020-02-04 06:09] LABS: International Normalized Ratio 1.86; Prothrombin Time Results 19.2 Sec (9.7-11.5)
--- NOTE | 2020-02-04 17:45 | NUR ---
SHIFT SUMMARY PT IS BHUPENDRA. AT THE START OF SHIFT THE PATIENT NEW HER LAST NAME AND DATE OF . THE SHIFT PROGRESSED THE THE PATIENT UNABLE TO STATE LAST NAME AND FULL BIRTHDATE. PT WAS UP IN CHAIR BUT NEEDED MAX ASSISTANCE TO GET BACK TO BED. PT HAS NOT VOIDED THIS SHIFT. BLADDER SCAN AT 1600 SHOWED 489ML. EDDA SNOW CALLED PHYSCIAN. ORDER WAS GIVEN TO STRAIGHT CATH PT IF BLADDER SCAN BECOMES GREATER THAN 600. PT DENIES ANY P/N/V. PT IN ROOM RESTING. CALL LIGHT WITHIN REACH. TEACHING ON HOW TO USE CALL LIGHT WAS DONE BEFORE LEAVING PT ROOM.
--- NOTE | 2020-02-05 00:08 | NUR ---
STRAIGHT CATH BLADDER SCAN SHOWED >635ML URINE. STRAIGHT CATH'D PT PER ORDERS, HAD 750ML URINE OUTPUT. PT DID HAVE 1 INCONTINENT VOID EARLIER IN SHIFT AROUND 2100, BUT STILL HAD OVER 635 ML IN BLADDER. PT REPORTS FEELING MORE COMFORTABLE. WILL MONITOR.
[2020-02-05 05:29] LABS: International Normalized Ratio 3.11; Prothrombin Time Results 31.2 Sec (9.7-11.5)
--- NOTE | 2020-02-05 06:29 | NUR ---
SHIFT SUMMARY AOX1-SELF ONLY, CONFUSED, UNABLE TO TELL ME FULL BIRTHDATE LAST NIGHT. ALSO UNABLE TO ANSWER PLACE, SITUATION, OR CURRENT DATE. STATES ITS THE YR 2001. ABLE TO FOLLOW SIMPLE DIRECTIONS LIKE STICKING OUT TONGUE. STARES BLANKLY @ME WHEN I ASK ORIENTATION QUESTIONS. PUPILS SLIGHLTY UNEQUAL, L LARGER THEN R. EQUAL BESSEMER CONVERTER BLOWER, PEDAL PUSHES. DOES GET IRRITABLE @ TIMES c STAFF DURING CARE, APPEARS CONFUSED & IS CALMER AFTER SLOWLY EDUCATING ON ALL CARE BEING DONE. BLADDER SCAN LAST NIGHT SHOWED 635ML, STRAIGHT CATH'D & HAD 750ML URINE OUT. DENIES N/V, PAIN, DYSPNEA. HAS EXPIRATORY WHEEZES IN UPPER LOBES. SPO2 >90%. +1 EDEMA IN BLE. BLADDER SCAN THIS AM SHOWED 790ML IN BLADDER, STAFF TRIED GETTING PT UP TO BSC & PT DID NOT VOID. PT CURRENTLY BEING STRAIGHT CATH'D AGAIN BY STAFF. CALL LIGHT IN REACH. BED ALARM ON FOR SAFETY. WILL MONITOR.
[2020-02-05] MEDS ORDERED: CEFD300 PO (13:56)
[2020-02-05] MEDS ORDERED: AZIT250 PO (13:56)
--- NOTE | 2020-02-05 16:08 | NUR ---
PT DISCHARGED THE PT WAS BLADDER SCANNED JUST PRIOR TO DC, HAD A TOTAL OVER 750, THE PT WAS ASSISTED TO THE BSC, WAS UNABLE TO VOID, A CALL WAS MADE TO DR. STEPHENS AND AN ORDER TO PLACE A MEYER CATH BEFORE DC WAS GIVEN, THE PT IS SOMEHAT CONFUSED AT TIMES, AND RESISTED THE PROCEDURE, THE PROCEDURE WAS MAINTAINED WITH STERILE TECHNIQUE AND THE CATHETER WAS INSERTED AND SECURED, THE PTS AT THE BEDSIDE THE PT WAS TRANSFERED VIA WHEELCHAIR TO HIS CAR THE PT APPEARED TO BE BREATHING EASILY AT THE TIME OF DC, THE PTS PRESCRIPTIONS WERE FAXED TO [facility]
== END 2020-02-05 15:04 | disposition home health service (06) | DRG 193 ==
LOC: ER 09:26 → MEDS 18:14
PROVIDERS: Internal Medicine Critical Care Medicine; Pharmacist; Physician Assistant; ADMIT Internal Medicine
DX: J18.9 Pneumonia, unspecified organism (principal); G92 Toxic encephalopathy; I50.32 Chronic diastolic (congestive) heart failure; J44.0 Chronic obstructive pulmonary disease with (acute) lower respiratory infection; Z86.73 Personal history of transient ischemic attack (TIA), and cerebral infarction without residual deficits; Z20.828 Contact with and (suspected) exposure to other viral communicable diseases; I11.0 Hypertensive heart disease with heart failure; Z85.118 Personal history of other malignant neoplasm of bronchus and lung; E66.9 Obesity, unspecified; E11.42 Type 2 diabetes mellitus with diabetic polyneuropathy; E78.5 Hyperlipidemia, unspecified; G25.0 Essential tremor; G89.4 Chronic pain syndrome; K21.9 Gastro-esophageal reflux disease without esophagitis; R47.02 Dysphasia; Z86.718 Personal history of other venous thrombosis and embolism; Z87.891 Personal history of nicotine dependence; Z92.21 Personal history of antineoplastic chemotherapy; R33.9 Retention of urine, unspecified; R62.7 Adult failure to thrive; Z86.711 Personal history of pulmonary embolism; Z79.01 Long term (current) use of anticoagulants; F41.9 Anxiety disorder, unspecified; G43.909 Migraine, unspecified, not intractable, without status migrainosus; F01.50 Vascular dementia, unspecified severity, without behavioral disturbance, psychotic disturbance, mood disturbance, and anxiety; Z74.01 Bed confinement status; Z99.3 Dependence on wheelchair; Z90.5 Acquired absence of kidney
CPT/HCPCS: 0241U; 36415; 51702; 70450; 70551; 71045; 80053; 80164; 81003; 82140; 82803; 82947; 83605; 83880; 84439; 84443; 85025; 85610; 87040; 93005; 93010; 93306; 94640; 94760; 96365-59; 96367-59; 96375-59; 97110; 97112; 97162; 97166; 99285-25; C9113; J0456; J0696; J1650; J2310; J7050

== ENCOUNTER 2020-11-02 08:55 | Observation (INO) | payer BC, MEDICARE ==
[~2020-11-02] VITALS: Ht 165.1 cm; Wt 99.6 kg
[~2020-11-02 08:55] MED LIST changes: +ASCO500 PO; +CEFD300 PO; +DULO60 PO; +Depakote ER500 MG PO; +GABA300 PO; +GLUCOPHAGE1000 M1 PO; +IRON PO; +MERIBIN5 MG PO; +PRAVASTATIN SOD40 MG PO; +PRENATAL TABLE1 EAC2 PO; +TUMS500 MG PO; +Vitamin D2000 UNIT PO
[2020-11-02 09:51] LABS: BASOPHILS ABSOLUTE AUTO 0.08 K/mm3 (0.00-0.23); BASOPHILS PERCENT AUTO 1 % (0-2); EOSINOPHILS ABSOLUTE AUTO 0.05 K/mm3 (0.00-0.68); EOSINOPHILS PERCENT AUTO 1 % (0-6); Hematocrit 44.6 % (33.0-51.0); Hemoglobin 14.6 g/dL (11.5-16.0); IMMATURE GRAN ABSOLUTE AUTO 0.02 K/mm3 (0.00-0.10); IMMATURE GRAN PERCENT AUTO 0 % (0-1); LYMPHOCYTES ABSOLUTE AUTO 1.82 K/mm3 (0.84-5.20); LYMPHOCYTES PERCENT AUTO 18 % (21-46); MONOCYTES ABSOLUTE AUTO 1.41 K/mm3 (0.16-1.47); MONOCYTES PERCENT AUTO 14 % (4-13); Mean Corpuscular HGB 29.2 pg (26.0-34.0); Mean Corpuscular HGB Conc 32.7 g/dL (31.5-36.5); Mean Corpuscular Volume 89 fL (80-100); NEUTROPHILS ABSOLUTE AUTO 6.74 K/mm3 (1.96-9.15); NEUTROPHILS PERCENT AUTO 67 % (41-73); Platelet Count 287 K/mm3 (150-400); RDW Coefficient Variation 15.6 % (11.7-14.2); RDW Standard Deviation 50.8 fL (35.1-46.3); White Blood Cell Count 10.12 K/mm3 (4.00-11.30)
[2020-11-02 10:03] LABS: Alanine Aminotransfer (ALT/SGP 27 U/L (12-78); Albumin, Blood 2.7 g/dL (3.4-5.0); Albumin/Globulin Ratio 0.7 (0.8-1.8); Alk Phos 57 U/L (50-136); Anion Gap 11 mmol/L (6-16); Aspartate Aminotrans (AST/SGOT 30 U/L (12-37); Bilirubin, Total 0.5 mg/dL (0.1-1.0); Blood Urea Nitrogen 17 mg/dL (8-24); Bun/Creatinine Ratio 21.7 (12.0-20.0); CO2, Blood 24 mmol/L (21-32); CPK Creatine Kinase 708 U/L (26-193); Chloride, Blood 105 mmol/L (98-108); Creatine Kinase MB 7.3 ng/mL (0.0-3.6); Creatinine, Blood 0.79 mg/dL (0.40-1.00); Globulin, Blood 4.1 g/dL (2.2-4.0); Glomerular Filtration Rate >60 (60-); Glucose, Blood 131 mg/dL (70-99); Magnesium, Blood 1.4 mg/dL (1.6-2.4); Potassium, Blood 4.1 mmol/L (3.5-5.5); Sodium, Blood 140 mmol/L (136-145); Total Protein, Blood 6.8 g/dL (6.4-8.2); Valproic Acid 16.7 ug/mL (50.0-100.0)
[2020-11-02 10:07] LABS: Source, Urine Catheter
[2020-11-02 10:13] LABS: Appearance, Urine Hazy (Clear); Bilirubin, Urine Neg (Neg); Blood, Urine 3+ (Neg); Color, Urine Yellow (P-Yellow); Glucose Qualitative, Urine Neg (Neg); Ketones, Urine 3+ (Neg); Leukocyte Esterase, Urine 3+ (Neg); Nitrite, Urine Neg (Neg); Protein, Urine 2+ (Neg); Urobilinogen, Urine NORM (Normal); pH, Urine 6.5 (5.0-8.0)
[2020-11-02 10:26] LABS: U Amphetamine Screen Not Detected; U Barbituate Screen Not Detected; U Benzodiazapine Screen Not Detected; U Buprenorphine Screen Not Detected; U Cannabinoids Screen Not Detected; U Cocaine Screen Not Detected; U Methadone Screen Not Detected; U Methamphetamine Screen Not Detected; U Opiates Screen Not Detected; U Oxycodone Screen Not Detected; U Phencyclidine Screen Not Detected; U Propoxyphene Screen Not Detected
[2020-11-02 10:31] LABS: Base Excess Venous 0.2 mmol/L; Bicarbonate Venous 24.2 mmol/L (24.0-30.0); PCO2 Venous 40.7 mmHg (38-42); PO2 Venous 49.5 mmHg (38-42)
[2020-11-02 10:56] LABS: International Normalized Ratio 1.17; Prothrombin Time Results 12.5 Sec (9.7-11.5)
[2020-11-02 11:08] LABS: Bacteria Few /hpf; Squamous Epithelial Cells Rare /hpf (Few); Yeast/Fungi Urine Mod /hpf
[2020-11-02 11:11] LABS: Calcium Oxalate Crystals Few /hpf
[2020-11-02 11:15] LABS: White Blood Cells, Urine 50-100 /hpf (0-5)
[2020-11-02 11:23] LABS: Granular Casts 0-2 /lpf (0)
[2020-11-02 11:32] LABS: SARS-Cov-2 (COVID-19) PCR, MMC NEGATIVE (NEGATIVE)
[2020-11-02 11:45] LABS: Free Thyroxine 1.19 ng/dL (0.70-1.60); Triiodothyronine, Free 2.51 pg/mL (2.18-3.98)
--- NOTE | 2020-11-02 12:42 | NUR ---
ED Palliative Care Consult Spoke with Dr Rivera and discussed case. Plan for Dr Mckenzie to admit Pt. Family may benefit from discussion regarding advanced care planning. Pt may need skilled nursing placement. Pt resting on gurny upon arrival. Pt is confused. Pt does not respond to questions asked. Pt appears comfortable with no S/S of distress at this time. Called and spoke with Pt's spouse Waylon. Provided update and plan for Dr Mckenzie to examin Pt and will consider admission. Gentle education on the importance of planning for the future. Discussed the potential need of considering a higher level of care or caregivers in the home. Waylon reports thinking her earns to much for Pt to qualify for medicaid. Continued therapeutic listening. Waylon reports no other concerns at this time. Palliative Care will remain available.
[2020-11-02] MEDS ORDERED: METOPROLOL SUCC25 MG PO (18:09)
[2020-11-02] MEDS ORDERED: CALCIUM CIT 311 EAC7 PO (18:11)
[2020-11-03 05:14] LABS: BASOPHILS ABSOLUTE AUTO 0.07 K/mm3 (0.00-0.23); BASOPHILS PERCENT AUTO 1 % (0-2); EOSINOPHILS ABSOLUTE AUTO 0.14 K/mm3 (0.00-0.68); EOSINOPHILS PERCENT AUTO 2 % (0-6); Hematocrit 38.9 % (33.0-51.0); Hemoglobin 12.6 g/dL (11.5-16.0); IMMATURE GRAN ABSOLUTE AUTO 0.03 K/mm3 (0.00-0.10); IMMATURE GRAN PERCENT AUTO 0 % (0-1); LYMPHOCYTES ABSOLUTE AUTO 1.64 K/mm3 (0.84-5.20); LYMPHOCYTES PERCENT AUTO 20 % (21-46); MONOCYTES PERCENT AUTO 14 % (4-13); Mean Corpuscular HGB 29.2 pg (26.0-34.0); Mean Corpuscular HGB Conc 32.4 g/dL (31.5-36.5); Mean Corpuscular Volume 90 fL (80-100); Mean Platelet Volume 11.2 fL (9.1-12.4); NEUTROPHILS ABSOLUTE AUTO 5.15 K/mm3 (1.96-9.15); NEUTROPHILS PERCENT AUTO 63 % (41-73); Platelet Count 233 K/mm3 (150-400); RDW Coefficient Variation 15.7 % (11.7-14.2); RDW Standard Deviation 51.4 fL (35.1-46.3); Red Blood Cell Count 4.32 M/mm3 (3.80-5.20); White Blood Cell Count 8.13 K/mm3 (4.00-11.30)
[2020-11-03 05:24] LABS: International Normalized Ratio 1.06; Prothrombin Time Results 11.4 Sec (9.7-11.5)
[2020-11-03 05:37] LABS: Anion Gap 8 mmol/L (6-16); Blood Urea Nitrogen 16 mg/dL (8-24); Bun/Creatinine Ratio 23.4 (12.0-20.0); CO2, Blood 25 mmol/L (21-32); Calcium, Blood 7.9 mg/dL (8.5-10.1); Chloride, Blood 107 mmol/L (98-108); Creatinine, Blood 0.69 mg/dL (0.40-1.00); Glomerular Filtration Rate >60 (60-); Glucose, Blood 119 mg/dL (70-99); Potassium, Blood 3.4 mmol/L (3.5-5.5); Sodium, Blood 140 mmol/L (136-145)
--- NOTE | 2020-11-03 05:44 | NUR ---
SHIFT SUMMARY PT HAS BEEN ALERT THIS SHIFT, IS PLEASANTLY CONFUSED, COOPERATIVE W/CARE, VSS, SLEPT T/O THE NIGHT & SLEEPING AT THIS TIME, BED ALARM ACTIVE, WILL CONT TO MONITOR UNTIL REPORT GIVEN TO DAY RN.
--- NOTE | 2020-11-03 16:11 | NUR ---
ADMIT: 11/02/20 DISCHARGE: DX: encephalopathy CC: hakeem VILLAR CALL: RESIDENCE: home with spouse CAREGIVER: Waylon Watson, Spouse / Partner, Hitesh Childress, Child, DX: valvular disease, HTN, CHF, COPD, chronic pain, see list DME: [employer] and equipment, oxygen, DM supplies CCM: Referral2020 HOME HEALTH: [facility]
--- NOTE | 2020-11-03 17:08 | NUR ---
SHIFT SUMMARY PATIENT ALERT TO SELF AND FAMILY. PATIENT CONTINUES TO STATE [place] THE CURRENT LOCATION AND A DATE IN THE 1900S. PATIENT IS PLEASANTLY CONFUSED AND COOPERATIVE WITH CARE. PATIENT SITTING UP IN BED WATCHING TELEVISION THROUGHOUT THIS SHIFT. THIS AFTERNOON PATIENT HAD BLOOD ON THE OUTER RIGHT NOSTRIL. WHEN ASKED, PATIENT SAID HER NOSE ITCHED, SO SHE SCRATCHED IT. PATIENT EDUCATED THAT SHE HAS SCRATCHED THE SKIN TO THE POINT THAT IT BLED AND SHE NEEDS TO TRY NOT TO TOUCH IT. PATIENT CURRENTLY SITTING UP WATCHING TELEVISION.
[2020-11-04 04:53] LABS: BASOPHILS PERCENT AUTO 1 % (0-2); EOSINOPHILS ABSOLUTE AUTO 0.32 K/mm3 (0.00-0.68); EOSINOPHILS PERCENT AUTO 4 % (0-6); Hematocrit 35.3 % (33.0-51.0); Hemoglobin 11.7 g/dL (11.5-16.0); IMMATURE GRAN ABSOLUTE AUTO 0.02 K/mm3 (0.00-0.10); IMMATURE GRAN PERCENT AUTO 0 % (0-1); LYMPHOCYTES PERCENT AUTO 31 % (21-46); MONOCYTES ABSOLUTE AUTO 1.07 K/mm3 (0.16-1.47); MONOCYTES PERCENT AUTO 15 % (4-13); Mean Corpuscular HGB 29.4 pg (26.0-34.0); Mean Corpuscular HGB Conc 33.1 g/dL (31.5-36.5); Mean Corpuscular Volume 89 fL (80-100); NEUTROPHILS ABSOLUTE AUTO 3.55 K/mm3 (1.96-9.15); NEUTROPHILS PERCENT AUTO 48 % (41-73); Platelet Count 230 K/mm3 (150-400); RDW Coefficient Variation 15.5 % (11.7-14.2); RDW Standard Deviation 50.3 fL (35.1-46.3); Red Blood Cell Count 3.98 M/mm3 (3.80-5.20); White Blood Cell Count 7.36 K/mm3 (4.00-11.30)
[2020-11-04 05:09] LABS: International Normalized Ratio 1.04; Prothrombin Time Results 11.2 Sec (9.7-11.5)
[2020-11-04 05:16] LABS: Alanine Aminotransfer (ALT/SGP 24 U/L (12-78); Albumin, Blood 2.4 g/dL (3.4-5.0); Albumin/Globulin Ratio 0.7 (0.8-1.8); Alk Phos 53 U/L (50-136); Anion Gap 7 mmol/L (6-16); Aspartate Aminotrans (AST/SGOT 19 U/L (12-37); Bilirubin, Total 0.3 mg/dL (0.1-1.0); Blood Urea Nitrogen 17 mg/dL (8-24); CO2, Blood 25 mmol/L (21-32); Calcium, Blood 8.4 mg/dL (8.5-10.1); Chloride, Blood 106 mmol/L (98-108); Creatinine, Blood 0.77 mg/dL (0.40-1.00); Globulin, Blood 3.5 g/dL (2.2-4.0); Glomerular Filtration Rate >60 (60-); Glucose, Blood 122 mg/dL (70-99); Potassium, Blood 3.5 mmol/L (3.5-5.5); Sodium, Blood 138 mmol/L (136-145); Total Protein, Blood 5.9 g/dL (6.4-8.2)
--- NOTE | 2020-11-04 05:18 | NUR ---
SUMMARY: PT ORIENTED TO SELF, FAMILY AND "[facility]" BUT IS PLEASANTLY CONFUSED OTHERWISE. SHE THOUGHT SHE WAS "GOING HOME" AT THE BEGINNING OF SHIFT BUT REORIENTED W/EXPLANTATION. TURN SCHEDULE MAINTAINED FOR BEDREST AND ATTENDS CHANGED PRN FOR INCONTINENCE. MEPILEX TO BUTTOCKS IS C/D/I. SHE WAS COOPERATIVE W/CARE AND WATCHED TV UNTIL FALLING ASLEEP. NO ACUTE CHANGES, VSS AND AFEBRILE W/HR IMPROVED SOME THIS SHIFT. PROBABLE PLACEMENT NEEDED AND PT/OT WORKING W/PT. WCTM AND REPORT TO DAY RN.
--- NOTE | 2020-11-04 15:10 | NUR ---
11/04/20- per chart review with Dr. Field, there is some question if pt is back at her baseline (thinking it's 1998). Pt needs to be assessed to see if she is stable to go home or if she needs to be placed in SNF vs memory care facility. -joseph
--- NOTE | 2020-11-04 17:08 | NUR ---
REPORT CALLED TO COURT IN SURG OVERFLOW FOR TX- MOVING FROM ROOM 325
--- NOTE | 2020-11-04 18:47 | NUR ---
SHIFT SUMMARY PT RECEIVED FROM [facility]. SETTLED INTO BED. VSS. WILL CONTINUE TO MONITOR AND REPORT OFF TO WOOD AND WOOD [employer]ODUCTS LABOURER RN.
--- NOTE | 2020-11-05 05:17 | NUR ---
PT SNACKED EARLY ON IN THE EVENING, THEN SLEPT WELL DURING THE NIGHT. GREGG CARE AND DIAPER CHANGED PRN THROUGH THE NIGHT. RIGHT BUTTOCK DIME SIZE WOUND DRSG CHANGED WITH GETTING PT UP INTO CHAIR FOR LINEN CHANGE. PT REFUSED HER LAB DRAW THIS AM BUT THEN AGREED TO IT AFTER A SHORT BIT OF TIME WENT BY. WARM BLANKETS GIVEN THROUGH THE NIGHT PT'S HANDS ARE ICE COLD. BED ALARM ON, CALL LIGHT IN REACH.
[2020-11-05 05:30] LABS: BASOPHILS ABSOLUTE AUTO 0.09 K/mm3 (0.00-0.23); BASOPHILS PERCENT AUTO 1 % (0-2); EOSINOPHILS ABSOLUTE AUTO 0.34 K/mm3 (0.00-0.68); EOSINOPHILS PERCENT AUTO 4 % (0-6); Hematocrit 39.4 % (33.0-51.0); Hemoglobin 12.9 g/dL (11.5-16.0); IMMATURE GRAN ABSOLUTE AUTO 0.03 K/mm3 (0.00-0.10); IMMATURE GRAN PERCENT AUTO 0 % (0-1); LYMPHOCYTES ABSOLUTE AUTO 2.38 K/mm3 (0.84-5.20); LYMPHOCYTES PERCENT AUTO 28 % (21-46); MONOCYTES ABSOLUTE AUTO 1.22 K/mm3 (0.16-1.47); MONOCYTES PERCENT AUTO 14 % (4-13); Mean Corpuscular HGB 29.5 pg (26.0-34.0); Mean Corpuscular HGB Conc 32.7 g/dL (31.5-36.5); Mean Corpuscular Volume 90 fL (80-100); Mean Platelet Volume 10.8 fL (9.1-12.4); NEUTROPHILS ABSOLUTE AUTO 4.52 K/mm3 (1.96-9.15); NEUTROPHILS PERCENT AUTO 53 % (41-73); Platelet Count 255 K/mm3 (150-400); RDW Coefficient Variation 15.9 % (11.7-14.2); Red Blood Cell Count 4.37 M/mm3 (3.80-5.20); White Blood Cell Count 8.58 K/mm3 (4.00-11.30)
[2020-11-05 05:41] LABS: International Normalized Ratio 1.25; Prothrombin Time Results 13.3 Sec (9.7-11.5)
[2020-11-05 06:14] LABS: Alanine Aminotransfer (ALT/SGP 25 U/L (12-78); Albumin, Blood 2.8 g/dL (3.4-5.0); Albumin/Globulin Ratio 0.7 (0.8-1.8); Alk Phos 59 U/L (50-136); Anion Gap 6 mmol/L (6-16); Aspartate Aminotrans (AST/SGOT 18 U/L (12-37); Bilirubin, Total 0.2 mg/dL (0.1-1.0); Blood Urea Nitrogen 16 mg/dL (8-24); Bun/Creatinine Ratio 21.6 (12.0-20.0); CO2, Blood 27 mmol/L (21-32); Chloride, Blood 106 mmol/L (98-108); Creatinine, Blood 0.74 mg/dL (0.40-1.00); Globulin, Blood 4.2 g/dL (2.2-4.0); Glomerular Filtration Rate >60 (60-); Glucose, Blood 120 mg/dL (70-99); Potassium, Blood 3.6 mmol/L (3.5-5.5); Sodium, Blood 139 mmol/L (136-145)
--- NOTE | 2020-11-05 09:21 | NUR ---
BEG SHIFT ASSESSMENT: CHRISTO IS IN GOOD SPIRTIS & COOPERATIVE THIS AM. ORIENTED TO SELF, UNSURE OF LOCATION. REMINDED SHE IS IN THE HOSPITAL. BED ALARM IN PLACE. VSS. EXP WHEEZES NOTED. WILL CONTINUE TO MONITOR.
--- NOTE | 2020-11-05 10:11 | NUR ---
PT PRESSURE ULCER ON TAIL BONE HAS DRESSING IN PLACE CDI, SKIN REDDNESS AROUND DRESSING W/ NO BREAKDOWN. PT HAD RED 1 INCH SCRATCH ON NOSE & TWO RED 1 INCH SCRATCHES ON RIGHT STERLING WHEN RN ASSUMED CARE OF PT.
--- NOTE | 2020-11-05 14:36 | NUR ---
NOTED THAT PATIENT SEEMS TO EAT BETTER WITH SOME ASSISTANCE OR AT LEAST CONSTANT CHECKING ON. PT WAS GIVEN A WARM BLANKET SHE C/O BEING COLD AND PUT A MOVIE ON.
--- NOTE | 2020-11-05 16:35 | NUR ---
11/05/20- per chart review, OT assessed the pt and feels that she needs memory care due to being demented and not able to answer question appropriately. Will work on finding memory care facility for pt. -khoa
--- NOTE | 2020-11-05 17:08 | NUR ---
LATE ENTRY- PT WAS NOTED TO STOP BREATHING WHILE TAKING VITALS. HER SPO2 WOULD READ 88% THEN GO BACK UP TO 93% I ASKED THE PATIENT IF SHE HAD A CPAP AT HOME, SHE REPLIED NO. RN WAS NOTIFIED.
--- NOTE | 2020-11-05 17:51 | NUR ---
SHIFT SUMMARY: NO ACUTE CHANGES TODAY. CARE MANAGEMENT WORKING ON GETTING PT PLACED INTO A MEMORY CARE FACILITY. PT SLEEPING INT T/O THE DAY. STATES NO PAIN. CALL LIGHT WITHIN REACH. BED LOWEST LOCKED POSITION, WILL CONTINUE TO MONITOR UNTIL REPORT TO NIGHT RN.
--- NOTE | 2020-11-06 04:14 | NUR ---
RN UPDATED FROM MA OF SBP BEING IN THE 80'S-90'S WITH 0400 VITALS CHECK. RN WENT TO RECHECK WITH A NEW RADIAL BP CUFF AND READING WAS 101/68. PT AWAKENED WITH BP CHECK AND OFFERED PO FLUIDS. PT SLEPT WELL AND REPOSITIONED OFTEN BY DESHAWN'S THROUGH THE NIGHT. BED IN LOW, LOCKED POSITION, CALL LIGHT IN REACH.
[2020-11-06 06:12] LABS: BASOPHILS ABSOLUTE AUTO 0.08 K/mm3 (0.00-0.23); BASOPHILS PERCENT AUTO 1 % (0-2); EOSINOPHILS ABSOLUTE AUTO 0.39 K/mm3 (0.00-0.68); EOSINOPHILS PERCENT AUTO 5 % (0-6); Hematocrit 33.3 % (33.0-51.0); Hemoglobin 10.9 g/dL (11.5-16.0); IMMATURE GRAN ABSOLUTE AUTO 0.01 K/mm3 (0.00-0.10); IMMATURE GRAN PERCENT AUTO 0 % (0-1); LYMPHOCYTES ABSOLUTE AUTO 2.25 K/mm3 (0.84-5.20); LYMPHOCYTES PERCENT AUTO 30 % (21-46); MONOCYTES ABSOLUTE AUTO 1.19 K/mm3 (0.16-1.47); MONOCYTES PERCENT AUTO 16 % (4-13); Mean Corpuscular HGB 29.2 pg (26.0-34.0); Mean Corpuscular HGB Conc 32.7 g/dL (31.5-36.5); Mean Corpuscular Volume 89 fL (80-100); Mean Platelet Volume 10.8 fL (9.1-12.4); NEUTROPHILS ABSOLUTE AUTO 3.71 K/mm3 (1.96-9.15); NEUTROPHILS PERCENT AUTO 49 % (41-73); Platelet Count 236 K/mm3 (150-400); RDW Coefficient Variation 15.8 % (11.7-14.2); RDW Standard Deviation 50.6 fL (35.1-46.3); Red Blood Cell Count 3.73 M/mm3 (3.80-5.20); White Blood Cell Count 7.63 K/mm3 (4.00-11.30)
[2020-11-06 06:27] LABS: International Normalized Ratio 1.94; Prothrombin Time Results 20.2 Sec (9.7-11.5)
[2020-11-06 06:42] LABS: Alanine Aminotransfer (ALT/SGP 24 U/L (12-78); Albumin, Blood 2.3 g/dL (3.4-5.0); Albumin/Globulin Ratio 0.7 (0.8-1.8); Alk Phos 49 U/L (50-136); Anion Gap 5 mmol/L (6-16); Aspartate Aminotrans (AST/SGOT 17 U/L (12-37); Bilirubin, Total 0.4 mg/dL (0.1-1.0); Blood Urea Nitrogen 20 mg/dL (8-24); Bun/Creatinine Ratio 26.8 (12.0-20.0); CO2, Blood 26 mmol/L (21-32); Calcium, Blood 8.5 mg/dL (8.5-10.1); Chloride, Blood 107 mmol/L (98-108); Creatinine, Blood 0.75 mg/dL (0.40-1.00); Globulin, Blood 3.4 g/dL (2.2-4.0); Glomerular Filtration Rate >60 (60-); Glucose, Blood 111 mg/dL (70-99); Potassium, Blood 3.9 mmol/L (3.5-5.5); Sodium, Blood 138 mmol/L (136-145); Total Protein, Blood 5.7 g/dL (6.4-8.2)
--- NOTE | 2020-11-06 18:34 | NUR ---
SHIFT SUMMARY PT RESTING IN BED THROUGHOUT THE DAY. ALERT TO SELF ONLY. NO C/O PAIN THROUGHOUT, Q2 HOUR TURNS. UPDATED VIA PHONE TODAY. WILL CONTINUE TO MONITOR AND REPORT OFF TO ALUMINUM BOAT INSPECTOR RN.
--- NOTE | 2020-11-06 20:50 | NUR ---
PATIENT SITTING UP IN BED WATCHING TV. DENIES ANY NEEDS AT THIS TIME. PATIENT TURNED AND REPOSITIONED TO LEFT SIDE. PATIENT ORIENTED TO SELF AND STATES SHE IS READY TO GO HOME ANY TIME. REORIENTED PATIENT TO TIME AND PLACE. WILL CONTINUE TO MONITOR.
--- NOTE | 2020-11-06 22:45 | NUR ---
PATIENT WATCHING TV AND WHEN ASKED IF SHE WANTED A SNACK SHE ASKED FOR A PUDDING AND ATE ALL OF IT. REPOSITIONED FOR COMFORT. CALL LIGHT WITHIN REACH AND BED ALARM ON.
--- NOTE | 2020-11-07 00:19 | NUR ---
PATIENT RESTING IN BED WATCHING TV. REPOSITIONED AND ATTENDS CHANGED. CALL LIGHT WITHIN REACH AND BED IN LOWEST LOCKED POSITION. BED ALARM ON.
--- NOTE | 2020-11-07 05:32 | NUR ---
PATIENT SLEPT OFF AND ON THROUGHOUT THE NIGHT. PATIENT TURNED ORDERED. NO PAIN, N/V AND VSS. NO ACUTE CHANGES ON SHIFT. WILL REPORT TO DAYSHIFT NURSE.
[2020-11-07 06:01] LABS: BASOPHILS ABSOLUTE AUTO 0.09 K/mm3 (0.00-0.23); BASOPHILS PERCENT AUTO 1 % (0-2); EOSINOPHILS ABSOLUTE AUTO 0.42 K/mm3 (0.00-0.68); EOSINOPHILS PERCENT AUTO 6 % (0-6); Hematocrit 36.4 % (33.0-51.0); Hemoglobin 11.7 g/dL (11.5-16.0); IMMATURE GRAN ABSOLUTE AUTO 0.02 K/mm3 (0.00-0.10); IMMATURE GRAN PERCENT AUTO 0 % (0-1); LYMPHOCYTES ABSOLUTE AUTO 1.95 K/mm3 (0.84-5.20); LYMPHOCYTES PERCENT AUTO 26 % (21-46); MONOCYTES ABSOLUTE AUTO 1.07 K/mm3 (0.16-1.47); MONOCYTES PERCENT AUTO 14 % (4-13); Mean Corpuscular HGB 29.4 pg (26.0-34.0); Mean Corpuscular HGB Conc 32.1 g/dL (31.5-36.5); Mean Corpuscular Volume 92 fL (80-100); Mean Platelet Volume 10.8 fL (9.1-12.4); NEUTROPHILS ABSOLUTE AUTO 3.96 K/mm3 (1.96-9.15); NEUTROPHILS PERCENT AUTO 53 % (41-73); Platelet Count 258 K/mm3 (150-400); RDW Coefficient Variation 15.8 % (11.7-14.2); RDW Standard Deviation 52.5 fL (35.1-46.3); Red Blood Cell Count 3.98 M/mm3 (3.80-5.20); White Blood Cell Count 7.51 K/mm3 (4.00-11.30)
[2020-11-07 06:07] LABS: International Normalized Ratio 2.28; Prothrombin Time Results 23.5 Sec (9.7-11.5)
[2020-11-07 06:18] LABS: Anion Gap 4 mmol/L (6-16); Blood Urea Nitrogen 20 mg/dL (8-24); Bun/Creatinine Ratio 26.3 (12.0-20.0); CO2, Blood 27 mmol/L (21-32); Calcium, Blood 8.8 mg/dL (8.5-10.1); Chloride, Blood 107 mmol/L (98-108); Creatinine, Blood 0.76 mg/dL (0.40-1.00); Glomerular Filtration Rate >60 (60-); Glucose, Blood 101 mg/dL (70-99); Sodium, Blood 138 mmol/L (136-145)
--- NOTE | 2020-11-07 18:35 | NUR ---
SHIFT SUMMARY PT RESTING IN BED THROUGHOUT THE DAY. VSS. ALERT TO SELF ONLY. PT HAD 2 EXTRA LARGE BMs TODAY, BROWN AND SOFT. DRSG TO RIGHT BUTT CHEEK CHANGED, NO DRAINAGE NOTED. LUNG SOUNDS CLEAR THROUGHOUT THE DAY. WILL CONTINUE TO MONITOR AND REPORT OFF TO EXTRUSION MANAGER RN.
--- NOTE | 2020-11-07 20:34 | NUR ---
PATIENT TURNED AND REPOSITIONED FOR COMFORT AND ATTENDS WAS CHANGED. CALL LIGHT WITHIN REACH AND BED ALARM ON. BED IN LOWEST LOCKED POSITION.
--- NOTE | 2020-11-08 00:05 | NUR ---
REPOSITIONED PATIENT AND CHANGED ATTENDS. CALL LIGHT WITHIN REACH AND BED ALARM ON.
--- NOTE | 2020-11-08 02:32 | NUR ---
PATIENT REPOSITIONED FOR COMFORT. CALL LIGHT WITHIN REACH AND BED IN LOWEST LOCKED POSITON.
--- NOTE | 2020-11-08 04:33 | NUR ---
PATIENT TURNED AND REPOSITIONED AND ATTENDS CHANGED. DENIES ANY NEEDS AT THIS TIME. CALL LIGHT WITHIN REACH AND BED IN LOWEST LOCKED POSITION.
--- NOTE | 2020-11-08 05:30 | NUR ---
PATIENT UP WATCHING TV OFF AND ON THROUGHOUT THE NIGHT. PATIENT TURNED EVERY TWO HOURS AND REPOSITONED FOR COMFORT. CALL LIGHT WITHIN REACH AND BED ALARM ON. NO ACUTE CHANGES DURING SHIFT. WILL REPORT OFF TO DAYSHIFT NURSE.
[2020-11-08 06:05] LABS: International Normalized Ratio 3.03; Prothrombin Time Results 30.7 Sec (9.7-11.5)
--- NOTE | 2020-11-08 13:31 | NUR ---
PTS :KAHLIL CALLED FOR STATUS UPDATE ON PT. HIS NUMBER: [phone]. HE STATED HE WAS GOING TO WORK AND WOULD APPRECIATE A CALL IF HER STATUS SHOULD CHANGE. END NOTE ORSC.RDS
--- NOTE | 2020-11-08 13:33 | NUR ---
PT HAS BEEN RESTING COMFORTABLY BETWEEN MEALS TODAY. BEDDING CHANGE, ATTENS CHANGE AND COMFORT CARE MEASURES: MUSIC, PLEASANT CONVO, BACK RUBS AND RELAXATION TIME WITH DIM LIGHTS AND CALMING MOOD MUSIC. BED LOCKED, LOWEST POSITION W CALL LIGHT IN REACH. END NOTE ORSC.RDS.
--- NOTE | 2020-11-08 18:23 | NUR ---
PRIOR TO DINNER PT ATTEMPTED CALL TO WHO CALLED SEVERAL TIMES EARLIER WISHING TO SPEAK W HIS . HE DIDN'T ANSWER. PT AT MAJORITY OF DINNER AND HAS SPENT THE DAY RESTING PEACEFULLY. HER HOB IS ELEVATED. BED LOCKED LOWEST POSITION W CALL LIGHT IN REACH. PT HAD NO BOWEL MOVEMENTS TODAY, LAST BM YESTERDAY LARGER X2. PT WELL HYDRATED AND PRODUCING ADEQUATE URINARY OUTPUT. LINEN CHANGED X2, ATTENS CHANGED SEVERAL TIMES THRUOUT DAY. PT POSITION CHANGED Q2HRS CONT DURING SHIFT. PT HAD NO COMPLAINTS W VARYING LEVELS OF LUCIDITY. END NOTE ORSC.RDS
--- NOTE | 2020-11-08 18:45 | NUR ---
CHANGE OF SHIFT REPORT GIVEN TO PMRN. PT RESTING COMFORTABLY, BED LOWEST POSTION, LOCKED, W CALL LIGHT IN REACH. PT STATES ALL NEEDS CURRENTLY MET. END NOTE ORSC.RDS.
--- NOTE | 2020-11-08 21:01 | NUR ---
PATIENT HAD A BM AND ATTENDS CHANGED. PATIENT REPOSITONED AND GIVEN A SNACK AND DRINK. PATIENT DENIES ANY OTHER NEEDS AT THIS TIME. BED ALARM ON AND CALL LIGHT WITHIN REACH. BED IN LOWEST LOCKED POSITION.
--- NOTE | 2020-11-09 00:24 | NUR ---
PATIENT RESTING COMFORTABLY IN BED. CALL LIGHT WITHIN REACH AND BED IN LOWEST LOCKED POSITON. BED ALARM ON.
--- NOTE | 2020-11-09 01:10 | NUR ---
PATIENT TURNED AND REPOSITIONED IN BED AND ATTENDS CHANGED. CALL LIGHT WITHIN REACH AND BED ALARM ON.
--- NOTE | 2020-11-09 03:13 | NUR ---
PATIENT SLEEPING. CALL LIGHT WITHIN REACH AND BED IN LOWEST LOCKED POSITION. BED ALARM IN.
--- NOTE | 2020-11-09 05:07 | NUR ---
PATIENT SLEPT ON AND OFF THROUGHOURT THE NIGHT. TURNED EVERY 2 HOURS AND REPOSITIONED FOR COMFORT. NO ACUTE CHANGES DURING SHIFT. WILL GIVE REPORT TO DAYSHIFT RN.
[2020-11-09 05:46] LABS: International Normalized Ratio 2.88; Prothrombin Time Results 29.3 Sec (9.7-11.5)
--- NOTE | 2020-11-09 12:33 | NUR ---
PT VERY SLEEPY THIS MORNING, UNABLE TO STAY AWAKE FOR MEAL OR PILLS. HELD PILLS UNTIL THIS AFTERNOON. ATTEMPTED TO ADMINISTER PILLS WHEN PT WAS MORE AWAKE AND ABLE TO FOLLOW COMMANDS, BUT PT POCKETING PILLS IN RIGHT SIDE OF MOUTH. PILLS REMOVED FROM MOUTH. WILL CONTINUE TO MONITOR. HOLDING PILLS FOR NOW.
--- NOTE | 2020-11-09 17:07 | NUR ---
SHIFT SUMMARY PT RESTING IN BED THROUGHOUT THE DAY. VERY SLEEPY THIS MORNING, MORE AWAKE THIS AFTERNOON. ALERT TO SELF ONLY. NEW MEPILEX PLACED TO RIGHT BUTT CHEEK. ONCE PT APPEARED MORE AWAKE, ATTEMPTED TO GIVE AM MEDS, PT TOOK A FEW PILLS, THEN STARTED POCKETING PILLS IN HER RIGHT CHEEK. AM PILLS HELD D/T ASPIRATION RISK. PT TOOK DINNER TIME PILLS 1 AT A TIME WITH WATER WITHOUT A PROBLEM, BUT HAD TO BE PROMPTED TO SWALLOW THEM. WILL CONTINUE TO MONITOR AND REPORT OFF TO FISHER EEL SPEAR.
--- NOTE | 2020-11-10 04:14 | NUR ---
BED INFLATE USED TO ASSIST WITH REPOSITIONING ALONG WITH 2 PERSON ASSIST. ORAL FLUIDS OFFERED TO PT AND IPAD TURNED ON PT REQUEST WITH ASKING HER IF SHE WANTED TO GO BACK TO SLEEP OR WATCH TV.
--- NOTE | 2020-11-10 04:53 | NUR ---
PT REPOSITIONED THROUGH OUT THE NIGHT WITH MATTRESS TURN ASSIST. PO FLUIDS ENCOURAGED WHEN AWAKE, PT TOOK BEDTIME PILLS WITH REMINDERS TO SWALLOW. GREGG CARE DONE PRN ATTENDS CHANGE. PT AWAKE, WATCHING THE "COOKING SHOW." BED IN LOW, LOCKED POSITION, CALL LIGHT IN REACH.
[2020-11-10 06:28] LABS: Anion Gap 6 mmol/L (6-16); Blood Urea Nitrogen 42 mg/dL (8-24); Bun/Creatinine Ratio 50.8 (12.0-20.0); CO2, Blood 25 mmol/L (21-32); Calcium, Blood 8.6 mg/dL (8.5-10.1); Chloride, Blood 105 mmol/L (98-108); Creatinine, Blood 0.83 mg/dL (0.40-1.00); Glomerular Filtration Rate >60 (60-); Glucose, Blood 134 mg/dL (70-99); Sodium, Blood 136 mmol/L (136-145)
[2020-11-10 06:32] LABS: International Normalized Ratio 2.93; Prothrombin Time Results 29.8 Sec (9.7-11.5)
--- NOTE | 2020-11-10 07:57 | NUR ---
PT AWAKE, PT KNOWS WHERE SHE IS, BUT DOES NOT KNOW TODAY'S MONTH OR SEASON. PT EATING BREAKFAST WELL, WITH ASSISTANCE. PT INCONTINENT AND CHANGED. PT DRESSING ON HER RIGHT GLUTEAUS CHEECKS ALSO CHANGED THIS MORNING. PT DOES NOT HAVE ANY OPEN WOUND WHERE THE DRESSING WAS PLACED. ALLEVYN DRESSING IS ONLY PLACED ON PT'S RIGHT GLUTEAUS CHEECKS FOR PREVENTATIVE. PT SKIN AROUND THE GREGG AREA IS SLIGHTLY RED. WILL CHECK/CHANGE DEPENDS EVERY 2 HOURS OR OFTEN NEEDED. WILL TURN PT EVERY 2 HOURS FOR SKIN PROTECTION. SCD'S ON BILATERAL LOWER EXTREMETIES. PILLOW PLACED UNDER BOTH LEGS FOR PREVENTION OF PREASSURE ULCER ON PT'S HEELS. CALL LIGHT WITHIN REACH. WILL CONTINUE TO MONITOR.
--- NOTE | 2020-11-10 08:03 | NUR ---
LATE ENTRY: THIS MORNING WHEN DR. DUGAN WAS AROUND TO SEE PT. RN SPOKE TO DR. DUGAN ABOUT RE-ASSESSING PT'S CODE STATUS. DR. DUGAN AGREED AND WILL CONVERSE WITH PALLATIVE CARE TEAM. DR. DUGAN ALSO AWARE OF PT'S BUN LAB RESULT, NO FURTHER ORDERS GIVEN, HOWEVER, DR. DUGAN DOES WANT US TO KEEP AN EYE ON HER BOWEL MOVEMENT AND LOOK FOR ANY SIGNS OF BLEEDING. WILL CONTINUE TO MONITOR PT.
--- NOTE | 2020-11-10 08:39 | NUR ---
RN IN PT'S ROOM TO GIVE MORNING MEDICATIONS. PT ONLY TAKES HER MEDICATIONS ONE AT A TIME AND NEEDS PLENTY OF LIQUID TO HELP SWALLOW PILLS. RN ALSO REMINDED PT TO SWALLOW AND TO CHECK HER MOUTH TO MAKE SURE PT HAS SWALLOWED MEDICATIONS AND NOT LETTING IT SIT IN HER MOUTH. WILL ATTEMPT TO GIVE FURTHER MEDICATIONS WITH SOME FOOD, YOGURT, APPLE SAUCE, ETC...PT NOW SLEEPING, CALL LIGHT WITHIN REACH. WILL TURN EVERY 2 HOURS AND WILL CONTINUE TO MONITOR.
--- NOTE | 2020-11-10 10:01 | NUR ---
PT TURNED TO OTHER SIDE OF HER BED. PT DEPENDS CHECKED FOR INCONTINENCE. PT ATTEMPTED TO TAKE SOME OF HER VITAMINS, BUT PT HAD A DIFFICULTY SWALLOWING HER PILLS. RN ATTEMPTED TO GIVE IT TO PT WITH YOGURT BUT PT STILL HAD DIFFICUTLY SWALLOWING PILLS. PT DRINKS LOTS OF WATER TO HELP SWALLOW PILL. CALL LIGHT WITHIN REACH. PT WATCHING IPAD AT THIS TIME.
--- NOTE | 2020-11-10 10:17 | NUR ---
RN CALLED DR. ROJAS CONCERNING PT'S DIFFICULTY WITH SWALLOWING MEDICATIONS. ORDER FOR SPEECH THERAPY GIVEN. WILL CONTINUE TO MONITOR PT. CALL LIGHT WITHIN REACH.
--- NOTE | 2020-11-10 10:44 | NUR ---
Last Note : 11/10/20- spoke with over the phone. He reports prior to admission he was caring for her when he was home and then when he was at work, his granddaughter would come to the home. Granddaughter is not able to move pt due to size and so they would "pad" up the chair and put attends on pt and when got home, he would clean her up. states that he misses his and wants her to return home but he acknowledges that she is needing more care. He has spoken with [employer] to apply for Medicaid but did not purse this because of the financial component and is worried he won't have money left. We discussed the PT and OT recommendation for memory care, also discussed going home with home health and also caregivers. reports that he works at the [employer] that is closing and he doesn't know if he will have a job or insurance soon. 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 Plan: is going to call his insurance to see if his insurance has this benefit for her. He will call back after speaking to insurance. Will update hospitalist working today on home situation. Will discuss with about financial component of medicaid benefits. Discuss DME needs if pt were to go home. Reach out to [facility] if decides to take home. ([email or web address], 10:38 AM)
--- NOTE | 2020-11-10 12:40 | NUR ---
PT FINISHED LUNCH AT THIS TIME. PT SOUNDS VERY WHEEZY, RN ENCOURAGED PT TO COUGH, PT REFUSE TO COUGH. WHEN ASKED IF PT HURTS WHEN COUGHING, PT NODS "YES". PT ALSO SLEEPY AND GOES TO SLEEP EASILY EVEN WHEN PEOPLE ARE IN THE ROOM. VITALS WNL. O2 SAT 98% RA, BP 124/74, HR [address] DUGAN CALLED CONCERNING PT'S STATUS. WILL WAIT FOR A CALL BACK. PT TURNED AND DEPENDS CHECKED. WILL CONTINUE TO MONITOR, CALL LIGHT WITHIN REACH.
--- NOTE | 2020-11-10 14:34 | NUR ---
LATE ENTRY: SPEECH THERAPY IN ROOM TO WORK WITH PT
--- NOTE | 2020-11-10 14:34 | NUR ---
PHYSICAL THERAPY IN ROOM TO WORK WITH PT
--- NOTE | 2020-11-10 14:49 | NUR ---
RN SPOKE WITH SPEECH THERAPY, RECOMMENDED PT MEDS CRUSHED IF POSSIBLE, AND MEDS THAT CAN'T BE CRUSHED NEEDS TO BE ADMINISTERED WITH THICK LIQUID. RN CALLED PHARMACY TO UPDATE ABOUT MED ADMINISTRATION PRECAUTIONS.
--- NOTE | 2020-11-10 15:07 | NUR ---
PT WATCHING IPAD AT THIS TIME. TURNED AND CHANGED. RN CALLED RESPIRATORY THERAPY AND ASKED FOR BREATHING TREATMENT DUE TO PT WHEEZY. WILL CONTINUE TO MONITOR PT. CALL LIGHT WITHIN REACH.
--- NOTE | 2020-11-10 15:25 | NUR ---
RESPIRATORY THERAPY IN PT ROOM AT THIS TIME FOR BREATHING TREATMENT.
--- NOTE | 2020-11-10 15:31 | NUR ---
Spoke with Dr. Johnson, pt is medically stable to d/c. Will d/c pt home with home health services through [facility] for Therapy, bath aide, nursing, social service director. Asked [employer] to provide the with a list of caregivers they work with that the family can hire. states that the floor in their home will not hold the weight of a hospital bed and they have a bedside commode. Spoke with and let him know that she was coming home. Discussed the services with Richard coming into the home. He asked for help transportation. Originally tried [facility] but pt is a "pay prior." Called son and he is agreeable to come and get her. Called floor nurse and updated her on discharge. Provided her son's number so that she can call him about discharge and coordinate with him. (pin to top)
[2020-11-10] MEDS ORDERED: Diflucan100 MG PO (15:40)
[2020-11-10] MEDS ORDERED: ALBU90OI INH (15:41)
--- NOTE | 2020-11-10 15:44 | NUR ---
RESPIRATORY THERAPY FINISHED BREATHING TREATMENT WITH PT. RT RECOMMENDS PT TO CONTINUE BREATHING TREATMENT AT HOME AND TO SEND PT HOME WITH INCENTIVE SPIROMETER. PT WATCHING IPAD NOW. CALL LIGHT WITHIN REACH. WILL CONTINUE TO MONITOR.
--- NOTE | 2020-11-10 17:07 | NUR ---
RN CALLED SON PAMELA TO GIVE UPDATE ON PATIENTS DISCHARGE PLAN. SON IS VERY CONCERN ABOUT TRANSPORTING PATIENT FROM WHEELCHAIR TO CAR AND CAR TO WHEELCHAIR TO GET INTO THE HOUSE. RN CALLED [facility] TO HELP WITH TRANSPORT. PT SON PAMELA OK WITH [facility] AND SON OK TO PAY FOR TRANSPORT FEES. PAMELA ALSO IS AWARE THAT [facility] ARE HANDS-OFF WHEN IT COMES TO TRANPORTING PATIENT FROM WHEELCHAIR TO BED. SON VERBALLY STATES, HE CAN TRANSPORT PATIENT FROM WHEELCHAIR TO BED AT HOME. [facility] IS SCHEDULED TO COME PICK PATIENT UP THIS EVENING AT AROUND 1930. PAMELA REQUEST RN TO CALL PATIENTS FOR UPDATE ON PATIENT, RN ATTEMPTED TO CALL BUT RECEIVED ANSWERING MACHINE. RN LEFT A MESSAGE ASKING TO CALL ORSC BACK AT HIS CONVENIENCE TO GET REPORT/UPDATE ABOUT PATIENT. PT EATING DINNER AT THIS TIME. CALL LIGHT WITHIN REACH. TURN EVERY 2 HOURS. WILL CONTINUE TO MONITOR.
--- NOTE | 2020-11-10 17:45 | NUR ---
PT KAHLIL CALLED [facility]. RN ABLE TO TALK TO KAHLIL ABOUT PT STATUS AND DISCHARGE ORDERS. PT ALSO AWARE OF WHAT MEDICATIONS PT HAD RECEIVED TODAY AT [facility] AND WHAT MEDICATIONS PT WILL NEED TO TAKE TONIGHT AT AROUND 9PM. KAHLIL STATED UNDERSTANDING. PT EATING DINNER WITH ASSISTANCE AT THIS TIME. CALL LIGHT WITHIN REACH. TURN EVERY 2 HOURS.
--- NOTE | 2020-11-10 18:28 | NUR ---
PT BEING DISCHARGE TODAY. [facility] WILL PICK PT UP AT AROUND 1930. PT WAS SEEN BY RESPIRATORY THERAPY, SPEECH THERAPY AND PHYSICAL THERAPY TODAY. PT WAS TURNED EVERY 2 HOURS. ONE PERSON ASSIST DURING MEAL TIME. CALL LIGHT WITHIN REACH.
--- NOTE | 2020-11-10 18:54 | NUR ---
REPORT GIVEN TO NOC SHIFT NURSE. PT ATTENDS CHANGED, PT NOW WATCHING IPAD, CALL LIGHT WITHIN REACH.
--- NOTE | 2020-11-10 21:54 | NUR ---
PT TRANSFERRED FROM BED TO WHEELCHAIR USING [facility]. PT DISCHARGED TO HOME [facility]IA [facility]. PT BELONGINGS SENT WITH HER. PTS SON PAMELA WAS CONTACTED BY PHONE TO MEET PT AT HER HOME.
--- NOTE | 2020-11-11 10:39 | NUR ---
Request received from Dr Johnson for [facility] to address code status with pt's decision makers. No referral to [facility] ever received after ER visit. Pt was d/c'd yesterday and is no longer in hospital. Case conferenced with Manju of [facility] to request notes to pt's PCP to address code status at next office visit, complete POLST with pt/surrogate decision maker and to Fax completed and signed POLST to me for inclusion in pt's EMR via medical records. Fax # given to Manju and she will f/u on this. Will await receiving copy of POLST and at that time I will hand carry to Medical Records for scanning into pt's EMR.
== END 2020-11-10 21:50 | disposition home or self-care (01) ==
LOC: ER 08:55 → ERHOLD 08:56 → MEDS 17:39 → ORSCIP 11-04 18:00
PROVIDERS: Emergency Medicine; Family Medicine; Student in an Organized Health Care Education/Training Program; ADMIT Internal Medicine
DX: G93.40 Encephalopathy, unspecified (principal); J44.9 Chronic obstructive pulmonary disease, unspecified; I11.0 Hypertensive heart disease with heart failure; I50.32 Chronic diastolic (congestive) heart failure; E03.9 Hypothyroidism, unspecified; E11.40 Type 2 diabetes mellitus with diabetic neuropathy, unspecified; D68.8 Other specified coagulation defects; E83.42 Hypomagnesemia; B37.49 Other urogenital candidiasis; E78.5 Hyperlipidemia, unspecified; I35.0 Nonrheumatic aortic (valve) stenosis; F03.90 Unspecified dementia, unspecified severity, without behavioral disturbance, psychotic disturbance, mood disturbance, and anxiety; K21.9 Gastro-esophageal reflux disease without esophagitis; E66.01 Morbid (severe) obesity due to excess calories; G43.909 Migraine, unspecified, not intractable, without status migrainosus; Z86.718 Personal history of other venous thrombosis and embolism; Z79.01 Long term (current) use of anticoagulants; Z88.6 Allergy status to analgesic agent; Z88.5 Allergy status to narcotic agent; Z88.0 Allergy status to penicillin; Z91.048 Other nonmedicinal substance allergy status; Z86.711 Personal history of pulmonary embolism; Z85.118 Personal history of other malignant neoplasm of bronchus and lung; Z86.73 Personal history of transient ischemic attack (TIA), and cerebral infarction without residual deficits; Z95.2 Presence of prosthetic heart valve; Z92.21 Personal history of antineoplastic chemotherapy; Z68.36 Body mass index [BMI] 36.0-36.9, adult; Z79.84 Long term (current) use of oral hypoglycemic drugs; Z92.3 Personal history of irradiation; Z20.822 Contact with and (suspected) exposure to COVID-19
CPT/HCPCS: 36415; 70450; 71045; 80048; 80053; 80164; 81001; 82550; 82553; 82803; 82947; 83735; 84439; 84443; 84481; 85025; 85610; 87086; 92610; 93005; 93010; 96365; 96366; 97110; 97162; 97166; 97530; 99285-25; A9270; J0696; J1650; J3475; J7030; J7050; P9612; U0004

== ENCOUNTER 2021-01-13 15:50 | Emergency (ER) | payer BC, MEDICARE ==
[~2021-01-13] VITALS: Ht 165.1 cm; Wt 113.4 kg
[~2021-01-13 15:50] MED LIST changes: +CALCIUM CIT 311 EAC7 PO; +Diflucan100 MG PO; +METOPROLOL SUCC25 MG PO
[2021-01-13 16:26] LABS: BASOPHILS ABSOLUTE AUTO 0.07 K/mm3 (0.00-0.23); BASOPHILS PERCENT AUTO 1 % (0-2); EOSINOPHILS ABSOLUTE AUTO 0.04 K/mm3 (0.00-0.68); EOSINOPHILS PERCENT AUTO 1 % (0-6); Hematocrit 27.9 % (33.0-51.0); Hemoglobin 8.2 g/dL (11.5-16.0); IMMATURE GRAN ABSOLUTE AUTO 0.03 K/mm3 (0.00-0.10); IMMATURE GRAN PERCENT AUTO 1 % (0-1); LYMPHOCYTES ABSOLUTE AUTO 0.83 K/mm3 (0.84-5.20); LYMPHOCYTES PERCENT AUTO 13 % (21-46); MONOCYTES ABSOLUTE AUTO 1.16 K/mm3 (0.16-1.47); MONOCYTES PERCENT AUTO 19 % (4-13); Mean Corpuscular HGB 22.3 pg (26.0-34.0); Mean Corpuscular HGB Conc 29.4 g/dL (31.5-36.5); Mean Corpuscular Volume 76 fL (80-100); Mean Platelet Volume 10.3 fL (9.1-12.4); NEUTROPHILS ABSOLUTE AUTO 4.15 K/mm3 (1.96-9.15); NEUTROPHILS PERCENT AUTO 66 % (41-73); Platelet Count 466 K/mm3 (150-400); RDW Coefficient Variation 19.3 % (11.7-14.2); RDW Standard Deviation 53.1 fL (35.1-46.3); Red Blood Cell Count 3.68 M/mm3 (3.80-5.20); White Blood Cell Count 6.28 K/mm3 (4.00-11.30)
[2021-01-13 16:40] LABS: International Normalized Ratio 1.93; Prothrombin Time Results 19.4 Sec (9.7-11.5)
[2021-01-13 16:46] LABS: Source, Urine Catheter
[2021-01-13 16:50] LABS: Appearance, Urine Clear (Clear); Bilirubin, Urine Neg (Neg); Blood, Urine 1+ (Neg); Color, Urine Yellow (P-Yellow); Glucose Qualitative, Urine Neg (Neg); Ketones, Urine Neg (Neg); Leukocyte Esterase, Urine 3+ (Neg); Nitrite, Urine Neg (Neg); Protein, Urine 1+ (Neg); Urobilinogen, Urine NORM (Normal)
[2021-01-13 16:51] LABS: Alanine Aminotransfer (ALT/SGP 24 U/L (12-78); Albumin, Blood 2.4 g/dL (3.4-5.0); Albumin/Globulin Ratio 0.6 (0.8-1.8); Alk Phos 61 U/L (50-136); Anion Gap 9 mmol/L (6-16); Aspartate Aminotrans (AST/SGOT 45 U/L (12-37); Bilirubin, Total 0.3 mg/dL (0.1-1.0); Blood Urea Nitrogen 12 mg/dL (8-24); Bun/Creatinine Ratio 14.7 (12.0-20.0); CO2, Blood 22 mmol/L (21-32); Calcium, Blood 8.7 mg/dL (8.5-10.1); Chloride, Blood 110 mmol/L (98-108); Creatinine, Blood 0.81 mg/dL (0.40-1.00); Globulin, Blood 4.1 g/dL (2.2-4.0); Glomerular Filtration Rate >60 (60-); Glucose, Blood 125 mg/dL (70-99); Potassium, Blood 4.3 mmol/L (3.5-5.5); Sodium, Blood 141 mmol/L (136-145); Total Protein, Blood 6.5 g/dL (6.4-8.2)
[2021-01-13 17:00] LABS: Red Blood Cells, Urine 0-2 /hpf (0-2); Squamous Epithelial Cells Few /hpf (Few); White Blood Cells, Urine 25-50 /hpf (0-5)
[2021-01-13 17:01] LABS: Bacteria Many /hpf
[2021-01-13 17:03] LABS: Influenza A, PCR NEGATIVE (NEGATIVE); Influenza B, PCR NEGATIVE (NEGATIVE); Resp Syncytial Virus, PCR NEGATIVE (NEGATIVE)
[2021-01-13] MEDS ORDERED: CEPH500 PO (17:14)
[2021-01-13 17:16] LABS: SARS-Cov-2 (COVID-19) PCR, MMC POSITIVE (NEGATIVE)
== END 2021-01-13 18:32 | disposition home or self-care (01) ==
LOC: ER 15:50
PROVIDERS: Emergency Medicine
DX: U07.1 COVID-19 (principal); N39.0 Urinary tract infection, site not specified; I10 Essential (primary) hypertension; E78.5 Hyperlipidemia, unspecified; E11.9 Type 2 diabetes mellitus without complications; J44.9 Chronic obstructive pulmonary disease, unspecified; K21.9 Gastro-esophageal reflux disease without esophagitis; Z86.718 Personal history of other venous thrombosis and embolism; Z86.711 Personal history of pulmonary embolism; Z88.0 Allergy status to penicillin; Z91.048 Other nonmedicinal substance allergy status; Z88.6 Allergy status to analgesic agent; Z88.5 Allergy status to narcotic agent; Z79.899 Other long term (current) drug therapy; Z79.84 Long term (current) use of oral hypoglycemic drugs; Z79.01 Long term (current) use of anticoagulants
CPT/HCPCS: 0241U; 36415; 70450; 71045; 80053; 81001; 83605; 84145; 85025; 85610; 86140; 87040; 87086; 93005; 93010; 96365; 99285-25; A9270; J0696; J7030

== ENCOUNTER 2021-01-15 15:21 | Emergency (ER) | payer BC, MEDICARE ==
[~2021-01-15] VITALS: Ht 162.6 cm; Wt 72.6 kg
[2021-01-15 16:17] LABS: BASOPHILS ABSOLUTE AUTO 0.06 K/mm3 (0.00-0.23); BASOPHILS PERCENT AUTO 1 % (0-2); EOSINOPHILS ABSOLUTE AUTO 0.09 K/mm3 (0.00-0.68); EOSINOPHILS PERCENT AUTO 1 % (0-6); Hemoglobin 8.2 g/dL (11.5-16.0); IMMATURE GRAN ABSOLUTE AUTO 0.02 K/mm3 (0.00-0.10); IMMATURE GRAN PERCENT AUTO 0 % (0-1); LYMPHOCYTES ABSOLUTE AUTO 1.83 K/mm3 (0.84-5.20); LYMPHOCYTES PERCENT AUTO 24 % (21-46); MONOCYTES ABSOLUTE AUTO 0.81 K/mm3 (0.16-1.47); MONOCYTES PERCENT AUTO 11 % (4-13); Mean Corpuscular HGB 22.2 pg (26.0-34.0); Mean Corpuscular HGB Conc 28.3 g/dL (31.5-36.5); Mean Corpuscular Volume 78 fL (80-100); Mean Platelet Volume 10.6 fL (9.1-12.4); NEUTROPHILS ABSOLUTE AUTO 4.76 K/mm3 (1.96-9.15); NEUTROPHILS PERCENT AUTO 63 % (41-73); Platelet Count 484 K/mm3 (150-400); RDW Coefficient Variation 18.9 % (11.7-14.2); RDW Standard Deviation 53.9 fL (35.1-46.3); White Blood Cell Count 7.57 K/mm3 (4.00-11.30)
[2021-01-15 16:39] LABS: Alanine Aminotransfer (ALT/SGP 29 U/L (12-78); Albumin, Blood 2.6 g/dL (3.4-5.0); Albumin/Globulin Ratio 0.6 (0.8-1.8); Alk Phos 62 U/L (50-136); Anion Gap 9 mmol/L (6-16); Aspartate Aminotrans (AST/SGOT 43 U/L (12-37); Bilirubin, Total 0.2 mg/dL (0.1-1.0); Blood Urea Nitrogen 22 mg/dL (8-24); Bun/Creatinine Ratio 26.7 (12.0-20.0); CO2, Blood 22 mmol/L (21-32); Calcium, Blood 8.3 mg/dL (8.5-10.1); Chloride, Blood 112 mmol/L (98-108); Creatinine, Blood 0.83 mg/dL (0.40-1.00); Globulin, Blood 4.2 g/dL (2.2-4.0); Glomerular Filtration Rate >60 (60-); Glucose, Blood 145 mg/dL (70-99); Potassium, Blood 3.6 mmol/L (3.5-5.5); Sodium, Blood 143 mmol/L (136-145); Total Protein, Blood 6.8 g/dL (6.4-8.2)
== END 2021-01-15 20:20 | disposition home or self-care (01) ==
LOC: ER 15:21
PROVIDERS: Student in an Organized Health Care Education/Training Program
DX: R79.89 Other specified abnormal findings of blood chemistry (principal); I10 Essential (primary) hypertension; E78.5 Hyperlipidemia, unspecified; E11.9 Type 2 diabetes mellitus without complications; K21.9 Gastro-esophageal reflux disease without esophagitis; Z88.0 Allergy status to penicillin; Z88.6 Allergy status to analgesic agent; Z91.048 Other nonmedicinal substance allergy status; Z88.5 Allergy status to narcotic agent; Z86.718 Personal history of other venous thrombosis and embolism; Z79.84 Long term (current) use of oral hypoglycemic drugs; Z79.899 Other long term (current) drug therapy; Z79.01 Long term (current) use of anticoagulants; Z86.711 Personal history of pulmonary embolism
CPT/HCPCS: 36415; 80053; 83605; 85025; 93005; 93010; 96365; 99284-25; J0696

== ENCOUNTER 2021-02-02 12:26 | Observation (INO) | payer BC, MEDICARE ==
[~2021-02-02] VITALS: Ht 165.1 cm; Wt 95.7 kg
[2021-02-02 14:33] LABS: BASOPHILS ABSOLUTE AUTO 0.11 K/mm3 (0.00-0.23); BASOPHILS PERCENT AUTO 1 % (0-2); EOSINOPHILS ABSOLUTE AUTO 0.21 K/mm3 (0.00-0.68); EOSINOPHILS PERCENT AUTO 2 % (0-6); Hematocrit 33.9 % (33.0-51.0); Hemoglobin 9.4 g/dL (11.5-16.0); IMMATURE GRAN ABSOLUTE AUTO 0.02 K/mm3 (0.00-0.10); IMMATURE GRAN PERCENT AUTO 0 % (0-1); LYMPHOCYTES ABSOLUTE AUTO 2.72 K/mm3 (0.84-5.20); LYMPHOCYTES PERCENT AUTO 26 % (21-46); MONOCYTES ABSOLUTE AUTO 0.89 K/mm3 (0.16-1.47); MONOCYTES PERCENT AUTO 9 % (4-13); Mean Corpuscular HGB 21.1 pg (26.0-34.0); Mean Corpuscular HGB Conc 27.7 g/dL (31.5-36.5); Mean Corpuscular Volume 76 fL (80-100); Mean Platelet Volume 10.6 fL (9.1-12.4); NEUTROPHILS ABSOLUTE AUTO 6.37 K/mm3 (1.96-9.15); NEUTROPHILS PERCENT AUTO 62 % (41-73); Platelet Count 607 K/mm3 (150-400); RDW Coefficient Variation 20.6 % (11.7-14.2); RDW Standard Deviation 55.8 fL (35.1-46.3); Red Blood Cell Count 4.45 M/mm3 (3.80-5.20); White Blood Cell Count 10.32 K/mm3 (4.00-11.30)
[2021-02-02 14:51] LABS: Alanine Aminotransfer (ALT/SGP 27 U/L (12-78); Albumin/Globulin Ratio 0.6 (0.8-1.8); Alk Phos 82 U/L (50-136); Anion Gap 10 mmol/L (6-16); Aspartate Aminotrans (AST/SGOT 19 U/L (12-37); Bilirubin, Total 0.3 mg/dL (0.1-1.0); Blood Urea Nitrogen 28 mg/dL (8-24); Bun/Creatinine Ratio 36.2 (12.0-20.0); CO2, Blood 24 mmol/L (21-32); Calcium, Blood 9.6 mg/dL (8.5-10.1); Chloride, Blood 112 mmol/L (98-108); Creatinine, Blood 0.77 mg/dL (0.40-1.00); Globulin, Blood 4.7 g/dL (2.2-4.0); Glomerular Filtration Rate >60 (60-); Glucose, Blood 110 mg/dL (70-99); Sodium, Blood 146 mmol/L (136-145); Total Protein, Blood 7.7 g/dL (6.4-8.2); Troponin I <0.015 ng/mL (0.000-0.040)
[2021-02-02 15:27] LABS: Salicylate <1.7 mg/dL (2.8-20.0)
[2021-02-02 15:30] LABS: Acetaminophen, Random <2.0 ug/mL (10.0-30.0)
[2021-02-02 16:25] LABS: Base Excess Venous -0.8 mmol/L; Bicarbonate Venous 23.9 mmol/L (24.0-30.0); PCO2 Venous 36.7 mmHg (38-42); pH Blood Venous 7.42 (7.34-7.37)
[2021-02-02 16:34] LABS: Influenza A, PCR NEGATIVE (NEGATIVE); Influenza B, PCR NEGATIVE (NEGATIVE); Resp Syncytial Virus, PCR NEGATIVE (NEGATIVE)
[2021-02-02 16:35] LABS: SARS-Cov-2 (COVID-19) PCR, MMC POSITIVE (NEGATIVE)
[2021-02-02 19:09] LABS: Source, Urine Clean Catch
[2021-02-02 19:23] LABS: Appearance, Urine Turbid (Clear); Bilirubin, Urine Neg (Neg); Blood, Urine 5+ (Neg); Color, Urine Yellow (P-Yellow); Glucose Qualitative, Urine Neg (Neg); Ketones, Urine 2+ (Neg); Leukocyte Esterase, Urine 3+ (Neg); Nitrite, Urine Neg (Neg); Protein, Urine 3+ (Neg); Urobilinogen, Urine NORM (Normal)
[2021-02-02 19:47] LABS: Amorphous Light (0-Heavy); Bacteria Few /hpf; Red Blood Cells, Urine 50-100 /hpf (0-2); Squamous Epithelial Cells Few /hpf (Few)
[2021-02-02 19:54] LABS: U Amphetamine Screen Not Detected; U Barbituate Screen Not Detected; U Benzodiazapine Screen Not Detected; U Buprenorphine Screen Not Detected; U Cannabinoids Screen Not Detected; U Cocaine Screen Not Detected; U Methadone Screen Not Detected; U Methamphetamine Screen Not Detected; U Opiates Screen Not Detected; U Oxycodone Screen Not Detected; U Phencyclidine Screen Not Detected; U Propoxyphene Screen Not Detected
--- NOTE | 2021-02-03 04:03 | NUR ---
CHRISTO IS AOX1, HER LEFT BEFORE SHIFT CHANGE AND SHE WAS UNABLE TO ANSWER MOST ADMISSION QUESTIONS. DR. CLARK VISITED HER. sHE HWAS PUT ON 75ML/HR NS HER BP WAS LOW SHE HAD A RESTFUL NIGHT
--- NOTE | 2021-02-03 04:47 | NUR ---
CHRISTO REFUSED LAB FROM THE VIDEO MACHINES MECHANIC. WE TRY TO EDUCATE HER BUT LOC REMAINS A BARRIER TO LEARNING.
[2021-02-03 05:05] LABS: BASOPHILS ABSOLUTE AUTO 0.12 K/mm3 (0.00-0.23); BASOPHILS PERCENT AUTO 1 % (0-2); EOSINOPHILS ABSOLUTE AUTO 0.25 K/mm3 (0.00-0.68); EOSINOPHILS PERCENT AUTO 2 % (0-6); Hematocrit 29.7 % (33.0-51.0); Hemoglobin 8.3 g/dL (11.5-16.0); IMMATURE GRAN ABSOLUTE AUTO 0.04 K/mm3 (0.00-0.10); IMMATURE GRAN PERCENT AUTO 0 % (0-1); LYMPHOCYTES ABSOLUTE AUTO 2.34 K/mm3 (0.84-5.20); LYMPHOCYTES PERCENT AUTO 20 % (21-46); MONOCYTES ABSOLUTE AUTO 0.93 K/mm3 (0.16-1.47); MONOCYTES PERCENT AUTO 8 % (4-13); Mean Corpuscular HGB 21.2 pg (26.0-34.0); Mean Corpuscular HGB Conc 27.9 g/dL (31.5-36.5); Mean Corpuscular Volume 76 fL (80-100); Mean Platelet Volume 10.6 fL (9.1-12.4); NEUTROPHILS ABSOLUTE AUTO 7.83 K/mm3 (1.96-9.15); NEUTROPHILS PERCENT AUTO 68 % (41-73); Platelet Count 513 K/mm3 (150-400); RDW Coefficient Variation 20.1 % (11.7-14.2); RDW Standard Deviation 55.6 fL (35.1-46.3); Red Blood Cell Count 3.92 M/mm3 (3.80-5.20); White Blood Cell Count 11.51 K/mm3 (4.00-11.30)
[2021-02-03 06:22] LABS: Anion Gap 7 mmol/L (6-16); Blood Urea Nitrogen 26 mg/dL (8-24); Bun/Creatinine Ratio 33.5 (12.0-20.0); CO2, Blood 26 mmol/L (21-32); Calcium, Blood 9.1 mg/dL (8.5-10.1); Chloride, Blood 115 mmol/L (98-108); Creatinine, Blood 0.78 mg/dL (0.40-1.00); Glomerular Filtration Rate >60 (60-); Glucose, Blood 105 mg/dL (70-99); Potassium, Blood 4.2 mmol/L (3.5-5.5); Sodium, Blood 148 mmol/L (136-145)
[2021-02-03] MEDS ORDERED: ESGIC 50-325-41 EACH PO (08:37)
[2021-02-03] MEDS ORDERED: MUPIROCIN15 GM TOP (08:37)
[2021-02-03] MEDS ORDERED: NYSTOP15 GM TOP (08:38)
[2021-02-03] MEDS ORDERED: C COMPLEX1000 M1 PO (08:39)
--- NOTE | 2021-02-03 16:38 | NUR ---
I went up and visited the pt in her [facility] room 343, her Waylon was there visiting. Pt was pleasant and alert. I relayed to them that Dr. Mckenzie and I suggest the patient discharge to a memory care facility due to her need of realtime court reporter caregiving. Pt's was hesitant due to the cost but, was not opposed. The patient gave verbal permission for her to sign both OHP application signature forms as the patient was unable to sign for herself. Pt's is okay with applying for OHP to start the long term care pharmacist care application process. I will call him to complete that application tomorrow over the phone.
[2021-02-03 16:47] LABS: International Normalized Ratio 3.03; Prothrombin Time Results 29.6 Sec (9.7-11.5)
--- NOTE | 2021-02-03 18:35 | NUR ---
SHIFT SUMMARY PATIENT PLEASANTLY CONFUSED AND ONLY ORIENTED TO PERSON AT THIS TIME BUT REORIENTED TO PLACE AND TIME. KEEPS ASKING FOR HER KAHLIL. PASSED SWALLOW EVAL TODAY AND WAS STARTED ON A PUREED DIET WITH NECTAR AND CRUSED MEDS IN APPLESAUCE AND ATE WELL. ONLY ATE ABOUT 25% OF HER DINNER. COUGHING UP SMALL AMOUNTS OF YELLOW FLEM. HAS NO C/O PAIN, SOB, N/V, OR ANY DISCOMFORT AT THIS TIME. PT INCONTINENT AND CHANGED X 3 TODAY WITH NO BM. WILL CONTINUE TO MONITOR IN CARE.
--- NOTE | 2021-02-04 04:46 | NUR ---
SHIFT SUMMARY PT IS AWAKE AND ALERT TO SELF.PT IS VERY PLEASANT AND FOLLOWS COMMANDS. NO SIGN OF SOB OR DISCOMFORT. ALL FALL PRECAUTION IN PLACE. WLL CONTINUE TO MONITOR.WILL CONTINUE TO MONITOR.
[2021-02-04 09:38] LABS: International Normalized Ratio 3.31; Prothrombin Time Results 32.1 Sec (9.7-11.5)
[2021-02-04 16:28] LABS: Percent Saturation 5.7 % (15.0-50.0)
--- NOTE | 2021-02-04 18:06 | NUR ---
SHIFT SUMMARY PATIENT JUST CLEANED UP AFTER HAVING A HUGE BM FOR THE 2ND TIME TODAY. SHE IS AAOX1 ONLY. UNSURE OF HER BIRTHDATE OR LOCATION. REORIENTED TO PLACE AND TIME. SHE IS ON RA WITH NO S/SX OF SOB. NAD NOTED. PATIENT BP SLIGHTLY LOWER THAN HAS BEEN AND DR AWARE. FAMILY AT BEDSIDE AND DR INFORMED ME THAT PATIENT WILL BE HAVING A PALLITAVE CARE CONSULT AND WORKING ON PLACEMENT SOON. PERIODS OF AGGITATION NOTICED AND EASILY CALMED DOWN. FEED DINNER AND ATE ABOUT 65%. HAD FOLLOW UP SPEECH EVAL TODAY AND APPROVED FOR PUREE DIET AND OKAY TO DRINK THIN LIQUIDS WITH NO STRAW AND HAS CRUSHED MEDS AND FEED IN APPLESAUCE. WILL CONTINUE TO MONITOR IN CARE.
--- NOTE | 2021-02-05 04:29 | NUR ---
SHIFT SUMMARY NO ACUTE EVENTS THROUGH THE NIGHT. PT IS RESTING COMFORTABLY IN BED . ALL FALL PRECAUTION IN PLACE. PT WAS CHANGED AND REPOSITIONNED NEEDED. PLAN IS FOR PATIENT TO GO TO A GROUP HOME CARE FACILITY AFTER DISCHARGE.
[2021-02-05 06:04] LABS: BASOPHILS ABSOLUTE AUTO 0.11 K/mm3 (0.00-0.23); BASOPHILS PERCENT AUTO 1 % (0-2); EOSINOPHILS ABSOLUTE AUTO 0.33 K/mm3 (0.00-0.68); EOSINOPHILS PERCENT AUTO 4 % (0-6); Hematocrit 30.6 % (33.0-51.0); Hemoglobin 8.3 g/dL (11.5-16.0); IMMATURE GRAN ABSOLUTE AUTO 0.03 K/mm3 (0.00-0.10); IMMATURE GRAN PERCENT AUTO 0 % (0-1); LYMPHOCYTES ABSOLUTE AUTO 2.14 K/mm3 (0.84-5.20); LYMPHOCYTES PERCENT AUTO 24 % (21-46); MONOCYTES ABSOLUTE AUTO 0.74 K/mm3 (0.16-1.47); MONOCYTES PERCENT AUTO 8 % (4-13); Mean Corpuscular HGB 20.5 pg (26.0-34.0); Mean Corpuscular HGB Conc 27.1 g/dL (31.5-36.5); Mean Corpuscular Volume 76 fL (80-100); Mean Platelet Volume 10.5 fL (9.1-12.4); NEUTROPHILS ABSOLUTE AUTO 5.66 K/mm3 (1.96-9.15); NEUTROPHILS PERCENT AUTO 63 % (41-73); Platelet Count 506 K/mm3 (150-400); RDW Coefficient Variation 20.4 % (11.7-14.2); RDW Standard Deviation 54.7 fL (35.1-46.3); Red Blood Cell Count 4.05 M/mm3 (3.80-5.20); White Blood Cell Count 9.01 K/mm3 (4.00-11.30)
[2021-02-05 06:38] LABS: International Normalized Ratio 3.62; Prothrombin Time Results 34.9 Sec (9.7-11.5)
[2021-02-05 06:39] LABS: Anion Gap 7 mmol/L (6-16); Blood Urea Nitrogen 15 mg/dL (8-24); CO2, Blood 24 mmol/L (21-32); Calcium, Blood 8.6 mg/dL (8.5-10.1); Chloride, Blood 113 mmol/L (98-108); Creatinine, Blood 0.65 mg/dL (0.40-1.00); Glomerular Filtration Rate >60 (60-); Glucose, Blood 116 mg/dL (70-99); Potassium, Blood 3.5 mmol/L (3.5-5.5); Sodium, Blood 144 mmol/L (136-145)
--- NOTE | 2021-02-05 09:20 | NUR ---
Yesterday I went up to the patients room to complete the OHP application with her to start the process of applying for content development manager care. Application was completed, consent forms faxed to [facility]. I just got off the phone with a licensing representative with [facility], and they will be reaching out to Waylon for further information regarding the patient and her current needs.
--- NOTE | 2021-02-05 16:46 | NUR ---
I called and talked to [employer], they are aware of the OHP application that was completed yesterday and that the patient is in the hospital and needs long-term care coverage for memory care placement. I have also reach out to [facility] who has recently stated they have Medicaid openings. [employer] states that they will call Waylon (patient's ) to notify him that [employer] will call Monday or Monday for a phone interview to complete the long-term care application process. [employer] states that Manju Patricio is the patient's Director Underwriter Sales. I plan to reach out to her Monday afternoon, if not Monday morning.
--- NOTE | 2021-02-06 04:24 | NUR ---
SHIFT SUMMARY NO NEW CONCERNS OVERNIGHT.PT IS RESTING COMFORATBLY IN BED, NO SIGN OF DISTRESS OBSERVED. STILL WAITING FOR PLACEMENT. WILL CONTINUE TO MONITOR.
[2021-02-06 05:59] LABS: International Normalized Ratio 3.06; Prothrombin Time Results 29.9 Sec (9.7-11.5)
--- NOTE | 2021-02-06 18:42 | NUR ---
SHIFT SUMMARY PATIENT NOT ALERT OR ORIENTED AT ALL. PT MORE LETHARGIC THAN USUAL ON TODAY. NOT SPEAKING, ANSWERING QUESTIONS OR FOLLOWING COMMANDS ON TODAY AND NORMALLY DOES. VSS. NAD NOTED. ON RA. NOTIFIED DR AND OF FINDINGS AND BOTH CAME TO SEE PATIENT AND DECIDED SHE WAS FINE WITH NO FURTHER ORDERS AND WILL BE GETTING A FOLLOW UP FROM PALLIATIVE CARE. HAD A LARGE BM ON TODAY AND GOOD AMOUNT OF URINE OUTPUT. DID NOT EAT BREAKFAST OR LUNCH BUT DID GET MORE ALERT AND ATE DINNER BETTER. SWALLOWED MEDS CRUSHED IN PUDDING. NO S/SX OF PAIN, PAIN OR SOB. WILL CONTINUE TO MONITOR IN CARE.
--- NOTE | 2021-02-07 03:55 | NUR ---
SHIFT SUMMARY PT IS AWAKE AND ORIENTED TO SELF. FOUND PT LETHARGIG TONIGHT.SHE SLEPT MORE THAN USUAL . SHE TOOK HER MEDS.VS REVIEWED , NO SIGN OF SOB.PT WAS REPOSITIONNED AND CHANGED NEEDED. ALL FALL PRECAUTION IN PLACE . WILL CONTINUE TO MONITOR.
[2021-02-07 04:56] LABS: International Normalized Ratio 2.16; Prothrombin Time Results 21.6 Sec (9.7-11.5)
--- NOTE | 2021-02-07 17:35 | NUR ---
SHIFT SUMMARY PT IS AAO TO SELF ONLY, ALGAACIQ AND CONFUSED, ABLE TO FOLLOW SIMPLE INSTRUCTIONS AT TIMES. REDIRECTABLE. PT REQUIRES 2P MAX ASSIST WITH BED MOBILITY. NO C/O PAIN OR ANY DISCOMFORT THIS SHIFT. NO C/O CP, SOB, OR N/V/D. PT IS INCONTINENT OF B&B, ATTENDS IN PLACE. BED AT LOWEST POSITION W/ ALARM ON FOR FALL PRECAUTIONS. CALL LIGHT WITHIN REACH.
--- NOTE | 2021-02-08 05:30 | NUR ---
SHIFT SUMMARY PATIENT ALERT AND ORIENTED TO SELF ONLY. PLEASANTLY CONFUSED WITH A FLAT AFFECT. SHOWED NO SIGNS OF PAIN OR SHORTNESS OF BREATH. NO ACUTE ISSUES NOTED OVERNIGHT. BED IN LOWEST POSITION WITH WHEELS LOCKED AND ALARM ON. CALL LIGHT WITHIN REACH. REPORT GIVEN TO ONCOMING RN.
[2021-02-08 05:47] LABS: International Normalized Ratio 1.96; Prothrombin Time Results 19.7 Sec (9.7-11.5)
--- NOTE | 2021-02-08 11:21 | NUR ---
I faxed a patient packet to Kristal at [facility] to assess the patient for possible Medicaid Placement.
--- NOTE | 2021-02-08 18:00 | NUR ---
SHIFT SUMMARY NO ACUTE CHANGES NOTED TO PT THIS SHIFT. PT IS AAO TO SELF ONLY, PLEASANTLY CONFUSED, REDIRECTABLE, ABLE TO FOLLOW SIMPLE INSTRUCTIONS FROM STAFF DURING CARE. NO C/O PAIN OR ANY DISCOMFORT THIS SHIFT. DENIES CP, SOB, OR N/V/D. PT REQUIRES ASSISTANCE WITH MEALS. PT IS INCONTINENT OF B&B, ATTENDS IN PLACE. BED AT LOWEST POSITION, CALL LIGHT WITHIN REACH. AWAITING PLACEMENT.
[2021-02-09 05:44] LABS: International Normalized Ratio 2.11; Prothrombin Time Results 21.1 Sec (9.7-11.5)
--- NOTE | 2021-02-09 05:48 | NUR ---
PATIENT LIAISON SUMMARY NO ACUTE CHANGES THIS SHIFT. PT AAOX1-2. PLEASANT AND CAN ANSWER MOST YES/NO QUESTIONS APPROPRIATELY HOWEVER DOES CONTINUE TO HAVE A SLOW RESPONSE. KNEW HER NAME AND BUT WAS UNSURE OF WHERE SHE WAS OR WHAT YEAR IT WAS. MEDICATIONS MUST BE GIVEN CRUSHED IN APPLESAUCE AND PT DOES REQUIRE REMINDERS TO SWALLOW AT TIMES. VERY WEAK, REQUIRING 2 MAX ASSIST WITH TURNS AND CHANGES, INCONTINENT OF BOWEL/BLADDER. VSS, WILL CONTINUE TO MONITOR.
--- NOTE | 2021-02-09 14:38 | NUR ---
Edel, Community Nurse, from [facility] came to visit the patient this morning to do an intake evaluation. Placement with [facility] is pending the Medicaid long-term care application and coverage. I reached out to Manju Patricio - [employer] - to request the long-term care screening be expedited due to the patient having likely placement at [facility]. I also spoke with Dr. Cook about requesting Palliative Care reaching out to the patient and her as well. I spoke with Palliative Care this morning, requesting an assessment.
--- NOTE | 2021-02-09 16:40 | NUR ---
SHIFT SUMMARY PT PLEASANTLY CONFUSED. SHE WAS EVALUATED TODAY BY [facility]. PT DOES NOT SPEAK MUCH BUT IS ABLE TO ANSWER SOME YES/NO QUESTIONS. INCONT AND BED BOUND AT THIS TIME. PILLS CRUSHED IN APPLE SAUCE. VSS. WILL REPORT TO KAT SNOW.
--- NOTE | 2021-02-09 19:55 | NUR ---
pt has polst for full treatment. We have discussed with family level of treatment. Will attempt again to address care needs. Armando Sandoval has spoke to will have him try again.
--- NOTE | 2021-02-10 04:40 | NUR ---
SHIFT SUMMARY NO ACUTE EVENTS THROUGH THE NIGHT. PT FOLLOWS COMMANDS BUT REMAINS CONFUSED. ALL MEDS GIVEN PER EMAR. VS REVIEWED, PT WAS CHANGED AND REPOSITIONNED NEEDED.WILL CONTINUE TO MONITOR.
[2021-02-10 09:32] LABS: International Normalized Ratio 2.06; Prothrombin Time Results 20.6 Sec (9.7-11.5)
[2021-02-10 10:27] LABS: BASOPHILS PERCENT AUTO 1 % (0-2); EOSINOPHILS ABSOLUTE AUTO 0.41 K/mm3 (0.00-0.68); EOSINOPHILS PERCENT AUTO 5 % (0-6); Hematocrit 33.2 % (33.0-51.0); Hemoglobin 9.5 g/dL (11.5-16.0); IMMATURE GRAN ABSOLUTE AUTO 0.03 K/mm3 (0.00-0.10); IMMATURE GRAN PERCENT AUTO 0 % (0-1); LYMPHOCYTES ABSOLUTE AUTO 2.13 K/mm3 (0.84-5.20); LYMPHOCYTES PERCENT AUTO 24 % (21-46); MONOCYTES ABSOLUTE AUTO 0.77 K/mm3 (0.16-1.47); MONOCYTES PERCENT AUTO 9 % (4-13); Mean Corpuscular HGB 21.7 pg (26.0-34.0); Mean Corpuscular HGB Conc 28.6 g/dL (31.5-36.5); Mean Corpuscular Volume 76 fL (80-100); Mean Platelet Volume 10.8 fL (9.1-12.4); NEUTROPHILS ABSOLUTE AUTO 5.42 K/mm3 (1.96-9.15); NEUTROPHILS PERCENT AUTO 61 % (41-73); Platelet Count 519 K/mm3 (150-400); RDW Coefficient Variation 23.5 % (11.7-14.2); RDW Standard Deviation 55.6 fL (35.1-46.3); Red Blood Cell Count 4.38 M/mm3 (3.80-5.20); White Blood Cell Count 8.86 K/mm3 (4.00-11.30)
--- NOTE | 2021-02-10 10:32 | NUR ---
I spoke with Manju Patricio - [employer] intake deer farm worker this morning, she states that someone from their office will be calling the , Waylon Watson, to complete a phone interview regarding the long-term care process. I called and left a message on Waylon's cell phone letting him know that [employer]/[facility] will be calling him today. There was not a time specified by the case liner.
--- NOTE | 2021-02-10 11:13 | NUR ---
Patient's , Waylon, returned my call. He stated that he was on the phone with [employer] completing the phone interview when I called. He was instructed that a housing case manager would be contacting him in a couple days. I confirmed with him that [facility] did an evaluation on the patient and would be willing to accept her for placement, but that it is pending Medicaid coverage.
[2021-02-10 11:26] LABS: Magnesium, Blood 1.6 mg/dL (1.6-2.4)
[2021-02-10 11:27] LABS: Alanine Aminotransfer (ALT/SGP 37 U/L (12-78); Albumin/Globulin Ratio 0.8 (0.8-1.8); Alk Phos 78 U/L (50-136); Anion Gap 7 mmol/L (6-16); Aspartate Aminotrans (AST/SGOT 37 U/L (12-37); Bilirubin, Total 0.4 mg/dL (0.1-1.0); Blood Urea Nitrogen 19 mg/dL (8-24); Bun/Creatinine Ratio 27.8 (12.0-20.0); CO2, Blood 25 mmol/L (21-32); Chloride, Blood 109 mmol/L (98-108); Creatinine, Blood 0.68 mg/dL (0.40-1.00); Globulin, Blood 3.6 g/dL (2.2-4.0); Glomerular Filtration Rate >60 (60-); Glucose, Blood 103 mg/dL (70-99); Phosphorus, Blood 4.3 mg/dL (2.5-4.9); Potassium, Blood 3.9 mmol/L (3.5-5.5); Sodium, Blood 141 mmol/L (136-145); Total Protein, Blood 6.6 g/dL (6.4-8.2)
--- NOTE | 2021-02-10 15:46 | NUR ---
Met with pt and her sister who was here for a visit. Pt is pleasant, alert and oriented to self, and at times her sister as well from what I could see. According to her sister, pt's sapphire Connors is not sure he will be able to continue caring at home for her. He's been speaking with [facility] Discharge planning about possibly placing pt at [facility] with medicaid assistance. Pt's sister tells me would prefer to keep her at home, but unsure if able. Pt's is at work tonight, but sister states she will text him about meeting tomorrow to discuss pt's code status, possibly placing pt on hospice services, and just a general debrief meeting to talk about what's happening, and how pt's family is handling her increased decline in health.
--- NOTE | 2021-02-10 18:24 | NUR ---
SHIFT SUMMARY PT A/O X1-2 AND PLEASANT. SHE REFUSED AM LABS BUT EVENTUALLY LET THEM BE DRAWN. SHE WAS EVALUATED BY [facility] YESTERDAY FOR MEMORY CARE PLACEMENT. PT IS BED BOUND AND A 2 PERSON ASSIST TO BE TURNED/CHANGED. HER DIET WAS ADVANCED TO SOFT MECHANICAL WITH THIN LIQUIDS AND SHE IS TOLERATING IT WELL. VSS. WILL REPORT TO KAT SNOW.
--- NOTE | 2021-02-11 04:14 | NUR ---
SHIFT SUMMARY PT IS AWAKE AND ALERT TO HERSELF. NO ACUTE EVENTS THROUGH THE NIGHT.PT WAS CHANGED AND REPOSITIONNED NEEDED. WILL CONTINUE TO MONITOR.
[2021-02-11 06:00] LABS: International Normalized Ratio 1.86; Prothrombin Time Results 18.8 Sec (9.7-11.5)
--- NOTE | 2021-02-11 17:15 | NUR ---
Per Manju Patricio - [facility] family service caseworker - patient is approved for [facility] medicaid coverage and can move into [facility]. Kristal with [facility] is aware and faxed over move-in orders to be completed tomorrow. Both Kristal and patient's Jose M feel it is best to move the patient in Monday02/15/2021 due to patient's feeling overwhelmed with the process. Will consult with Dr. Cook about this tomorrow morning. Palliative Care reached out to Waylon Watson and felt it was too overwhelming at this time to consult about possible hospice services. I plan to follow up with Waylon tomorrow.
--- NOTE | 2021-02-11 18:45 | NUR ---
SHIFT SUMMARY PATIENT IS SITTING UP WATCHING TV. A&O TO SELF. PATIENT WILL OCCASIONALLY RESPOND TO YES OR NO QUESTIONS. PATIENT REFUSED TO EAT LUNCH AND ONLY ATE A SMALL AMOUNT OF HER BREAKFAST AND DINNER. PATIENT TAKES PILLS CRUSHED IN APPLESAUCE BUT WILL OCCASIONALLY REFUSE TAKING THEM. PATIENT IS BEDFAST 2P ASSIST WITH CHANGES AND TURING. VITAL SIGNS STABLE. WILL CONTINUE TO MONITOR.
--- NOTE | 2021-02-12 05:40 | NUR ---
SHIFT SUMMARY PATIENT ALERT AND ORIENTED TO SELF ONLY. HAD NO SIGNS OF BEING IN PAIN OR HAVING DIFFICULTY BREATHING. BED IN LOWEST POSITION WITH WHEELS LOCKED AND ALARM ON. CALL LIGHT WITHIN REACH. REPORT GIVEN TO ONCOMING RN.
[2021-02-12 05:47] LABS: International Normalized Ratio 2.19; Prothrombin Time Results 21.8 Sec (9.7-11.5)
--- NOTE | 2021-02-12 16:01 | NUR ---
review of pt polst and needs with [employer] sales representative.
--- NOTE | 2021-02-12 18:56 | NUR ---
SHIFT SUMMARY PATIENT IS ORIENTED TO SELF. PATIENT WOULD RARLY RESPOND TO YES OR NO QUESTIONS TODAY. PATIENT IS REFUSING TO EAT AND TAKE HER PILLS. PATIENT WILL OCCASIONALLY TAKE SIPS OF WATER. AWAITING TRANSFER TO MEMORY CARE FACILITY ON MONDAY. WILL CONTINUE TO MONITOR.
[2021-02-13 04:54] LABS: International Normalized Ratio 2.4; Prothrombin Time Results 23.8 Sec (9.7-11.5)
--- NOTE | 2021-02-13 17:47 | NUR ---
Slow and careful conversation with about plan of care. He is completly overwhelmed. He is having cardiac issues and needs treatment. He is trying to maintain his work schedule. she is going to [facility]. He was overwhelmed by hospice. we talked about support from hospice. He has to not told his family detatils. We dsicussed calling his brothers teodoro for support with his needs. will follow up.
--- NOTE | 2021-02-13 18:37 | NUR ---
SHIFT SUMMARY: PT A/O X 4 STANDBY ASSIST, PLEASANT AND COOPERATIVE. PT HAD EGD TODAY AND TOLERATED WELL. PT VITALS WNL. PT HAS DENIED PAIN T/OUT THE DAY, DENIES GI DISCOMFORT/SWALLOWING DIFFICULTIES WITH MEAL INTAKE AT DINNER TIME. PT ATE WELL.
--- NOTE | 2021-02-13 18:47 | NUR ---
SHIFT SUMMARY: PT ALERT WITH CARES. VERY SLOW TO RESPOND AT TIMES OCCASIONALLY DOES SPEAK IN SENTENCES. DOES NOT TOLERATE MECH SOFT DIET SHE POCKETS SOFT VEGETABLES. SHE DOES WELL MITH PUREED FOODS SO DIET CHANGED TO PUREED. PT TOOK ALL OF HER MEDICATIONS TODAY CRUSHED IN APPLESAUCE AND HAD NO DIFFICULTIES. PT WAS PLEASANT AND COOPERATIVE WITH CARES TODAY. NO SIGNS OF DISCOMFORT. VISITED TODAY AND SPOKE TO HIM ABOUT HOSPICE CARE.
--- NOTE | 2021-02-14 04:30 | NUR ---
MUCH BETTER NIGHT FOR PEPE LAST NIGHT THAN THE ONE PRIOR. SHE WAS SITTING UP IN BED, CONVERSANT (IN ONE WORD RESPONSES). SHE TOOK HER MEDS WITH SMASHED BANANA INSTEAD OF APPLESAUCE AND LOVED IT. SHE DIDN'T WANT TO LAY DOWN UNTIL AFTER 0300. ONE LARGE VOID OVERNIGHT. NYSTATIN TO GROIN, AND PILLOWS TO ENCOURAGE PATIENT TO LAY ON SIDE
[2021-02-14 05:15] LABS: International Normalized Ratio 2.31
--- NOTE | 2021-02-14 18:38 | NUR ---
SHIFT SUMMARY: PT A/O TO SELF, CAN NOD YES/NO TO QUESTIONS AND IS RESPONDING MORE OFTEN TO QUESTIONS. SHE DID NOT HAVE A WET ATTENDS UNTIL THE END OF SHIFT. SHE DOES NOT TAKE IN FLUIDS WELL T/OUT THE DAY, OFTEN REFUSES BY TURNING HER HEAD AWAY. NO OTHER CONCERNS AT THIS TIME. SHE IS PLEASANT AND COOPERATIVE WITH [facility] CARES.
--- NOTE | 2021-02-15 05:16 | NUR ---
SHIFT SUMMARY NO ACUTE CHANGES TO REPORT THIS SHIFT. PT HAS RESTED MOST OF THE NIGHT. PT DID ANSWER SIMPLE YES/NO QUESTIONS AND DID MAKE EYE CONTACT. PT DOES NOT LIKE ORAL CARE AND WILL CLOSED MOUTH WHEN BLIND EYELETTER ATTEMPTS. PT TURNED AND REPOSITIONED T/O SHIFT, GREGG CARE PERFORMED PRN. VITALS ARE STABLE. PLAN IS FOR DC TO [facility]. BED IN LOWEST POSITION, CALL LIGHT WITHIN REACH.
[2021-02-15 05:21] LABS: International Normalized Ratio 2.99; Prothrombin Time Results 29.2 Sec (9.7-11.5)
[2021-02-15] MEDS ORDERED: GABA100 PO (11:50)
[2021-02-15] MEDS ORDERED: Acetaminophen650 M1 PO (11:51)
[2021-02-15] MEDS ORDERED: FURO40 PO (11:53)
[2021-02-15] MEDS ORDERED: ANTIFUNGAL POWD71 GM TOP (11:55)
[2021-02-15] MEDS ORDERED: NYSTATIN15 GM TOP (11:55)
[2021-02-15] MEDS ORDERED: POTA10T PO (11:57)
[2021-02-15 13:04] LABS: SARS-Cov-2 (COVID-19) PCR, MMC NEGATIVE (NEGATIVE)
--- NOTE | 2021-02-15 15:05 | NUR ---
CALLED REPORT TO EDY KABA AT [facility]. DISCUSSED CARE NEEDS, SWALLOW PRECAUTIONS WITH SENDY. ATTEMPTED TO CONTACT SPOUSE TO GIVE UPDATE AND HAD TO LEAVE GENERAL MESSAGE ON ANSWERING MACHINE. PT BELONGINGS PACKED UP INCLUDING A WATCH. NOTIFIED ESNDY SNOW PT HAD WATCH IN HER BELONGINGS.
--- NOTE | 2021-02-15 15:40 | NUR ---
DISCHARGE SUMMARY: PT DISCHARGED TO [facility] TODAY VIA GURNEY WITH [facility]. PT BELONGINGS SENT WITH AMBULANCE. REPORT CALLED TO SETH KABA.
--- NOTE | 2021-02-15 16:40 | NUR ---
Per chart review with Dr. Macias, patient appropriate for discharge to [facility]. Patient, patient's , and patient's nurse advised of transfer to facility today. Medical transport scheduled via [facility], discharge eta was 3:15PM. Patient discharge packet placed in patient lock box. Patient negative covid results placed with patient packet. [facility] transport form completed and signed by Dr. Macias. Hospital Bed and Lift delievered to [facility]. No barriers to discharge. Per Manju KENNEDY Human Performance Consultant, patient approved for medicaid coverage and gave verbal authorization for patient to move into [facility].
== END 2021-02-15 15:20 ==
LOC: ER 12:26 → ERHOLD 12:27 → MEDS 18:47 → ENPENDDIS 02-15 11:14 → MEDS 02-15 15:20
PROVIDERS: Emergency Medicine; Family Medicine; Physician Assistant; ADMIT Internal Medicine
DX: G93.40 Encephalopathy, unspecified (principal); I10 Essential (primary) hypertension; J44.9 Chronic obstructive pulmonary disease, unspecified; K21.9 Gastro-esophageal reflux disease without esophagitis; G30.9 Alzheimer's disease, unspecified; F02.80 Dementia in other diseases classified elsewhere, unspecified severity, without behavioral disturbance, psychotic disturbance, mood disturbance, and anxiety; D50.9 Iron deficiency anemia, unspecified; E11.42 Type 2 diabetes mellitus with diabetic polyneuropathy; I35.0 Nonrheumatic aortic (valve) stenosis; Z88.0 Allergy status to penicillin; Z88.5 Allergy status to narcotic agent; Z88.8 Allergy status to other drugs, medicaments and biological substances; Z91.09 Other allergy status, other than to drugs and biological substances; Z86.73 Personal history of transient ischemic attack (TIA), and cerebral infarction without residual deficits; Z79.84 Long term (current) use of oral hypoglycemic drugs; Z86.16 Personal history of COVID-19; Z66 Do not resuscitate
CPT/HCPCS: 0241U; 36415; 51701; 70450; 71045; 80048; 80053; 81001; 82140; 82728; 82803; 82947; 83540; 83550; 83735; 84100; 84484; 85025; 85610; 87086; 92526; 92610; 93005; 93010; 94640; 94664; 94760; 96372; 96374; 96376; 99285-25; A9270; G0378; G0480; J1650; J2916; J7030; U0004

== ENCOUNTER 2021-06-11 19:45 | Emergency (ER) | payer BC, MEDICARE, OTHER ==
[~2021-06-11] VITALS: Ht 165.1 cm; Wt 90.7 kg
[~2021-06-11 19:45] MED LIST changes: +ANTIFUNGAL POWD71 GM TOP; +Acetaminophen650 M1 PO; +C COMPLEX1000 M1 PO; +ESGIC 50-325-41 EACH PO; +MUPIROCIN15 GM TOP; +NYSTATIN15 GM TOP; +NYSTOP15 GM TOP
[2021-06-11 20:32] LABS: BASOPHILS ABSOLUTE AUTO 0.08 K/mm3 (0.00-0.23); BASOPHILS PERCENT AUTO 1 % (0-2); EOSINOPHILS ABSOLUTE AUTO 0.42 K/mm3 (0.00-0.68); EOSINOPHILS PERCENT AUTO 4 % (0-6); Hematocrit 32.1 % (33.0-51.0); Hemoglobin 9.3 g/dL (11.5-16.0); IMMATURE GRAN ABSOLUTE AUTO 0.04 K/mm3 (0.00-0.10); IMMATURE GRAN PERCENT AUTO 0 % (0-1); LYMPHOCYTES ABSOLUTE AUTO 1.53 K/mm3 (0.84-5.20); LYMPHOCYTES PERCENT AUTO 13 % (21-46); MONOCYTES ABSOLUTE AUTO 1.03 K/mm3 (0.16-1.47); MONOCYTES PERCENT AUTO 9 % (4-13); Mean Corpuscular HGB 22.4 pg (26.0-34.0); Mean Corpuscular Volume 77 fL (80-100); Mean Platelet Volume 9.6 fL (9.1-12.4); NEUTROPHILS ABSOLUTE AUTO 8.81 K/mm3 (1.96-9.15); NEUTROPHILS PERCENT AUTO 74 % (41-73); Platelet Count 445 K/mm3 (150-400); RDW Coefficient Variation 16.8 % (11.7-14.2); RDW Standard Deviation 47.2 fL (35.1-46.3); Red Blood Cell Count 4.16 M/mm3 (3.80-5.20); White Blood Cell Count 11.91 K/mm3 (4.00-11.30)
[2021-06-11 20:49] LABS: Anion Gap 6 mmol/L (6-16); Blood Urea Nitrogen 19 mg/dL (8-24); Bun/Creatinine Ratio 21.3 (12.0-20.0); CO2, Blood 28 mmol/L (21-32); Calcium, Blood 8.8 mg/dL (8.5-10.1); Chloride, Blood 101 mmol/L (98-108); Creatinine, Blood 0.89 mg/dL (0.40-1.00); Glomerular Filtration Rate >60 (60-); Glucose, Blood 206 mg/dL (70-99); Potassium, Blood 4.2 mmol/L (3.5-5.5); Sodium, Blood 135 mmol/L (136-145)
[2021-06-11] MEDS ORDERED: DELTASONE20 MG PO (23:16)
[2021-06-11] MEDS ORDERED: ALBU2.5V5 INH (23:16)
== END 2021-06-12 00:25 | disposition home or self-care (01) ==
LOC: ER 19:45
PROVIDERS: Student in an Organized Health Care Education/Training Program
DX: J44.1 Chronic obstructive pulmonary disease with (acute) exacerbation (principal); Z88.0 Allergy status to penicillin; Z88.6 Allergy status to analgesic agent; Z88.5 Allergy status to narcotic agent; Z91.048 Other nonmedicinal substance allergy status; Z79.899 Other long term (current) drug therapy; Z79.84 Long term (current) use of oral hypoglycemic drugs; Z79.01 Long term (current) use of anticoagulants; I10 Essential (primary) hypertension; E78.00 Pure hypercholesterolemia, unspecified; K21.9 Gastro-esophageal reflux disease without esophagitis; G43.909 Migraine, unspecified, not intractable, without status migrainosus; D64.9 Anemia, unspecified
CPT/HCPCS: 71045; 80048; 84484; 85025; 93005; 93010; 94640; 94664; 99285-25

== ENCOUNTER 2021-08-14 15:54 | Inpatient (IN) | payer BC, MEDICARE, OTHER ==
[~2021-08-14] VITALS: Ht 157.5 cm; Wt 106.6 kg
[~2021-08-14 15:54] MED LIST changes: +ALBU2.5V5 INH; +DELTASONE20 MG PO
[2021-08-14 16:29] LABS: BASOPHILS ABSOLUTE AUTO 0.04 K/mm3 (0.00-0.23); BASOPHILS PERCENT AUTO 0 % (0-2); EOSINOPHILS ABSOLUTE AUTO 0.69 K/mm3 (0.00-0.68); EOSINOPHILS PERCENT AUTO 7 % (0-6); Hemoglobin 6.6 g/dL (11.5-16.0); IMMATURE GRAN ABSOLUTE AUTO 0.06 K/mm3 (0.00-0.10); IMMATURE GRAN PERCENT AUTO 1 % (0-1); LYMPHOCYTES ABSOLUTE AUTO 1.89 K/mm3 (0.84-5.20); LYMPHOCYTES PERCENT AUTO 19 % (21-46); MONOCYTES ABSOLUTE AUTO 1.19 K/mm3 (0.16-1.47); MONOCYTES PERCENT AUTO 12 % (4-13); Mean Corpuscular HGB 19.2 pg (26.0-34.0); Mean Corpuscular HGB Conc 27.5 g/dL (31.5-36.5); Mean Corpuscular Volume 70 fL (80-100); Mean Platelet Volume 9.9 fL (9.1-12.4); NEUTROPHILS PERCENT AUTO 60 % (41-73); NRBC ABSOLUTE 0.03 K/mm3 (0.00-0.02); NRBC Auto 0.3 /100 WBC (0.0-0.2); Platelet Count 495 K/mm3 (150-400); RDW Coefficient Variation 17.3 % (11.7-14.2); RDW Standard Deviation 43.4 fL (35.1-46.3); Red Blood Cell Count 3.43 M/mm3 (3.80-5.20); White Blood Cell Count 9.77 K/mm3 (4.00-11.30)
[2021-08-14 16:39] LABS: Albumin, Blood 2.9 g/dL (3.4-5.0); Albumin/Globulin Ratio 0.7 (0.8-1.8); Bilirubin, Total 0.1 mg/dL (0.1-1.0); Calcium, Blood 8.7 mg/dL (8.5-10.1); Creatinine, Blood 0.84 mg/dL (0.40-1.00); Globulin, Blood 4.2 g/dL (2.2-4.0); Potassium, Blood 4.5 mmol/L (3.5-5.5); Total Protein, Blood 7.1 g/dL (6.4-8.2)
[2021-08-14 17:18] LABS: Influenza A, PCR NEGATIVE (NEGATIVE); Influenza B, PCR NEGATIVE (NEGATIVE); Resp Syncytial Virus, PCR NEGATIVE (NEGATIVE); SARS-Cov-2 (COVID-19) PCR, MMC NEGATIVE (NEGATIVE)
[2021-08-14 17:22] LABS: Base Excess Venous 0.9 mmol/L; Bicarbonate Venous 25.1 mmol/L (24.0-30.0); PCO2 Venous 47.6 mmHg (38-42); pH Blood Venous 7.35 (7.34-7.37)
[2021-08-14 18:47] LABS: CPK Creatine Kinase 89 U/L (26-193)
--- NOTE | 2021-08-14 19:59 | NUR ---
ASSUMED CARE OF PATIENT AT APPROXIMATELY 1900 FROM BOB Turk RN. PATIENT ARRIVED FROM ER SHORTLY BEFORE SHIFT CHANGE; ADMISSION COMPLETED WITH SPOUSE GIVING HISTORY. PATIENT SLOW TO RESPOND AND CONFUSED. ABLE TO STATE MONTH AND YEAR BUT STATES SHE IS NOT IN [place]. JOSE MANUEL MCKEON FILLED OUT POLST WITH [employer] [facility] AND WAITING FOR SIGNATURE; PER REPORT HOSPITALIST COMING UP TO SIGN FORM. PATIENT DENIES PAIN, NUMBESS, TINGLING, DIZZINESS, AND NAUSEA. PATIENT HAS ONE PIV INFUSING ABX; ORDER FOR 1 UNIT RBC; CONSENTS SIGNED BY ; PRODUCTION MECHANIC [employer] CURRENTLY ATTEMPTING TO PLACE POWERGLIDE BECAUSE SPOUSE REPORTS PATIENT HAS BAD VIENS. SR ON TELE; OXYGEN SATURATION ABOVE 90% ON BIPAP 16/8 35%. SCDS PLACED. PATIENT BEDBOUND; W/C BOUND AT BASELINE AND VERY UNSTEADY GAIT BASELINE PER SPOUSE. Q2H TURNS; ATTENDS IN PLACE FOR INCONTINENCE.
[2021-08-14 21:29] LABS: International Normalized Ratio 3.09; Prothrombin Time Results 30.1 Sec (9.7-11.5)
[2021-08-15] MEDS ORDERED: ANTAC+SIM PO (00:35)
[2021-08-15] MEDS ORDERED: ZEBUTAL 50-3251 EAC1 PO (00:37)
[2021-08-15] MEDS ORDERED: LOPE2C PO (00:38)
[2021-08-15] MEDS ORDERED: VITAMIN D310 MC4 PO (00:39)
[2021-08-15 02:28] LABS: BASOPHILS ABSOLUTE AUTO 0.04 K/mm3 (0.00-0.23); BASOPHILS PERCENT AUTO 0 % (0-2); EOSINOPHILS ABSOLUTE AUTO 0.03 K/mm3 (0.00-0.68); EOSINOPHILS PERCENT AUTO 0 % (0-6); Hematocrit 26.2 % (33.0-51.0); Hemoglobin 7.5 g/dL (11.5-16.0); IMMATURE GRAN ABSOLUTE AUTO 0.13 K/mm3 (0.00-0.10); IMMATURE GRAN PERCENT AUTO 1 % (0-1); LYMPHOCYTES ABSOLUTE AUTO 0.71 K/mm3 (0.84-5.20); LYMPHOCYTES PERCENT AUTO 7 % (21-46); MONOCYTES ABSOLUTE AUTO 0.15 K/mm3 (0.16-1.47); MONOCYTES PERCENT AUTO 1 % (4-13); Mean Corpuscular HGB 20.5 pg (26.0-34.0); Mean Corpuscular HGB Conc 28.6 g/dL (31.5-36.5); Mean Corpuscular Volume 72 fL (80-100); Mean Platelet Volume 9.6 fL (9.1-12.4); NEUTROPHILS ABSOLUTE AUTO 9.74 K/mm3 (1.96-9.15); NEUTROPHILS PERCENT AUTO 90 % (41-73); NRBC ABSOLUTE 0.02 K/mm3 (0.00-0.02); NRBC Auto 0.2 /100 WBC (0.0-0.2); Platelet Count 456 K/mm3 (150-400); RDW Coefficient Variation 19.1 % (11.7-14.2); RDW Standard Deviation 49.1 fL (35.1-46.3); Red Blood Cell Count 3.65 M/mm3 (3.80-5.20)
[2021-08-15 02:47] LABS: Albumin, Blood 2.8 g/dL (3.4-5.0); Albumin/Globulin Ratio 0.7 (0.8-1.8); Bilirubin, Total 0.3 mg/dL (0.1-1.0); Calcium, Blood 8.5 mg/dL (8.5-10.1); Creatinine, Blood 0.71 mg/dL (0.40-1.00); Potassium, Blood 4.6 mmol/L (3.5-5.5); Total Protein, Blood 6.8 g/dL (6.4-8.2)
[2021-08-15 02:55] LABS: International Normalized Ratio 2.75
--- NOTE | 2021-08-15 06:24 | NUR ---
PATIENT SLEPT ABOUT SEVEN HOURS LAST NIGHT; INCONTINENT OF URINE; WORE BIPAP ALL NIGHT LONG; REMOVED BIPAP FOR ORAL CARE AND PATIENT'S OXYGEN SATURATION WAS 99% ON ROOM AIR. NO OTHER ACUTE CHANGES
[2021-08-15 09:50] LABS: Creatine Kinase MB 1.4 ng/mL (0.0-3.6); Creatine Kinase MB Index 1.6 (0.0-4.0)
--- NOTE | 2021-08-15 17:15 | NUR ---
PT SUMMARY: PT WITH HX OF DEMENTIA ALERT AND ORIENTED X3, FOLLOWS DIRECTION, GETS CONFUSED AT TIMES OTHERWISE PLEASANT. VITALS HRR 70-90'S, SATS ABOVE 94% TOLERATING RA, HAS SOME AUDIBLE WHEEZES WITH EXERTION, BREATHING TX PER RT, BIPAP AT BEDSIDE USED COUPLE TIMES TODAY WHILE PT WAS RESTING, BP SYSTOLIC 110-115'S, AFEBRILE. PT HAD AN EXTRA LARGE BM TODAY STILL INCONTINENT OF BOWEL AND URINE, ATTENDS CHANGE 3X, BED BATH COMPLETED. DIET RESUMED, PT TOLERATING MECH SOFT AND NECTAR THICK LIQUIDS. PT HAS SOME RHYTHM CHANGES PER TELE, ST ELEVATION ON V2 LEAD EKG DONE PER ORDER NO SIGINIFICANT CHANGE FROM EKG YESTERDAY, LABS DONE WELL CKMB AND TROPONIN CAME BACK WNL, PT DENIES ANY CHEST PAIN OR PRESSURE. NO OTHER CARDIAC ISSUES REPORTED. PT STAYED IN BED ALL SHIFT, REPOSITIONED FOR COMFORT, BED ALARM ON FOR SAFETY. FAMILY CAME IN TO VISIT. NO OTHER ISSUES REPORTED FOR THE SHIFT, CALL LIGHTS WITHIN REACH WILL REPORT TO ONCOMING SHIFT
[2021-08-16 04:27] LABS: BASOPHILS ABSOLUTE AUTO 0.03 K/mm3 (0.00-0.23); BASOPHILS PERCENT AUTO 0 % (0-2); EOSINOPHILS ABSOLUTE AUTO 0.01 K/mm3 (0.00-0.68); EOSINOPHILS PERCENT AUTO 0 % (0-6); Hematocrit 25.8 % (33.0-51.0); Hemoglobin 7.4 g/dL (11.5-16.0); IMMATURE GRAN PERCENT AUTO 1 % (0-1); LYMPHOCYTES ABSOLUTE AUTO 1.76 K/mm3 (0.84-5.20); LYMPHOCYTES PERCENT AUTO 12 % (21-46); MONOCYTES ABSOLUTE AUTO 1.49 K/mm3 (0.16-1.47); MONOCYTES PERCENT AUTO 10 % (4-13); Mean Corpuscular HGB 20.4 pg (26.0-34.0); Mean Corpuscular HGB Conc 28.7 g/dL (31.5-36.5); Mean Corpuscular Volume 71 fL (80-100); Mean Platelet Volume 9.7 fL (9.1-12.4); NEUTROPHILS ABSOLUTE AUTO 11.44 K/mm3 (1.96-9.15); NEUTROPHILS PERCENT AUTO 77 % (41-73); NRBC ABSOLUTE 0.03 K/mm3 (0.00-0.02); NRBC Auto 0.2 /100 WBC (0.0-0.2); Platelet Count 504 K/mm3 (150-400); RDW Coefficient Variation 19.4 % (11.7-14.2); RDW Standard Deviation 49.2 fL (35.1-46.3); Red Blood Cell Count 3.63 M/mm3 (3.80-5.20); White Blood Cell Count 14.83 K/mm3 (4.00-11.30)
[2021-08-16 04:42] LABS: International Normalized Ratio 1.93; Prothrombin Time Results 19.4 Sec (9.7-11.5)
[2021-08-16 04:46] LABS: Albumin, Blood 2.8 g/dL (3.4-5.0); Albumin/Globulin Ratio 0.7 (0.8-1.8); Bilirubin, Total 0.3 mg/dL (0.1-1.0); Bun/Creatinine Ratio 35.2 (12.0-20.0); Calcium, Blood 8.8 mg/dL (8.5-10.1); Creatinine, Blood 0.71 mg/dL (0.40-1.00); Magnesium, Blood 1.9 mg/dL (1.6-2.4); Percent Saturation 3.9 % (15.0-50.0); Phosphorus, Blood 3.2 mg/dL (2.5-4.9); Potassium, Blood 4.4 mmol/L (3.5-5.5); Total Protein, Blood 6.8 g/dL (6.4-8.2)
--- NOTE | 2021-08-16 05:36 | NUR ---
SHIFT SUMMARY PT ALERT, CONFUSED AT TIMES PER PASELINE. COOEPRATIVE AND PLEASANT. REMAINS IN SR. ON RA. PT HAS OPTED TO NOT USE BIPAP THIS SHIFT, PRN BREATHING TX'S ADMINISTERED FOR WHEEZING. PT INCONTINENT A FEW TIMES THIS SHIFT, NO BM. PT BEING TURNED BY STAFF. PT HAS TOLERATED FLUIDS/PO INTAKE WELL. HAS BEEN HELPING WITH ROLLING. AND HAS BEEN OVERALLY RESTFULL. NO ACUTE CHANGES THIS SHIFT. BED ALARM ON. BLOOD SUAGRS TRENDING CLOSER TO NORMAL LIMITS WITH TOTAL OF 20U LONG ACTING INSULIN GIVEN WELL 15U HUMALOG.
--- NOTE | 2021-08-16 13:18 | NUR ---
Spiritual care visit conducted. Pt is very pleasant and welcoming. Pt immediately shares about her home being [place] and mentions her father José Luis and her son Sami as her family. She tells me that she believes in "God and everything with Him." She mentions that she is encouraged by her prayers and is grateful for the "staff here." She struggles to bring up names, locations and an explanation of her medical issues. I listen empathically, normalize her experience and provide, companionship, gentle breastfeeding peer counselor and prayer. Pt responds well and shows signs of increased peace. I will continue to remain available to patient and family.
--- NOTE | 2021-08-16 18:15 | NUR ---
SHIFT SUMMARY PT A&O TO SELF & FAMILY. PT PLEASANTLY CONFUSED & FORGETFUL. VSS. MONITOR SHOWING SR-ST, HR 90's-110. SPO2 > 92% ON RA. SIGNIFICANT EXPIRATORY WHEEZE NOTED. PT AT BEDSIDE TODAY, REPORTING PT W/ CHRONIC WHEEZE BUT REPORTS WHEEZE CURRENTLY HEARD BY PT "LOUDER THAN NORMAL." BREATHING TX's PROVIDED PER RT. PT INCONTINENT, PRN GREGG CARE/ATTENDS CHANGES PROVIDED & PT ASSISTED W/ REPOSITIONING.
[2021-08-17 04:23] LABS: BASOPHILS ABSOLUTE AUTO 0.02 K/mm3 (0.00-0.23); BASOPHILS PERCENT AUTO 0 % (0-2); EOSINOPHILS PERCENT AUTO 0 % (0-6); Hematocrit 27.1 % (33.0-51.0); Hemoglobin 7.7 g/dL (11.5-16.0); IMMATURE GRAN ABSOLUTE AUTO 0.11 K/mm3 (0.00-0.10); IMMATURE GRAN PERCENT AUTO 1 % (0-1); LYMPHOCYTES ABSOLUTE AUTO 0.78 K/mm3 (0.84-5.20); LYMPHOCYTES PERCENT AUTO 5 % (21-46); MONOCYTES ABSOLUTE AUTO 0.15 K/mm3 (0.16-1.47); MONOCYTES PERCENT AUTO 1 % (4-13); Mean Corpuscular HGB 20.3 pg (26.0-34.0); Mean Corpuscular HGB Conc 28.4 g/dL (31.5-36.5); Mean Corpuscular Volume 72 fL (80-100); Mean Platelet Volume 9.9 fL (9.1-12.4); NEUTROPHILS ABSOLUTE AUTO 14.98 K/mm3 (1.96-9.15); NEUTROPHILS PERCENT AUTO 93 % (41-73); NRBC ABSOLUTE 0.02 K/mm3 (0.00-0.02); NRBC Auto 0.1 /100 WBC (0.0-0.2); Platelet Count 513 K/mm3 (150-400); RDW Coefficient Variation 19.9 % (11.7-14.2); RDW Standard Deviation 49.9 fL (35.1-46.3); Red Blood Cell Count 3.79 M/mm3 (3.80-5.20); White Blood Cell Count 16.04 K/mm3 (4.00-11.30)
[2021-08-17 04:39] LABS: International Normalized Ratio 1.33; Prothrombin Time Results 13.7 Sec (9.7-11.5)
[2021-08-17 04:48] LABS: Albumin, Blood 2.9 g/dL (3.4-5.0); Albumin/Globulin Ratio 0.7 (0.8-1.8); Bilirubin, Total 0.5 mg/dL (0.1-1.0); Bun/Creatinine Ratio 31.6 (12.0-20.0); Calcium, Blood 8.7 mg/dL (8.5-10.1); Creatinine, Blood 0.73 mg/dL (0.40-1.00); Globulin, Blood 4.1 g/dL (2.2-4.0); Magnesium, Blood 1.9 mg/dL (1.6-2.4); Potassium, Blood 4.5 mmol/L (3.5-5.5)
--- NOTE | 2021-08-17 05:24 | NUR ---
SHIFT SUMMARY NO ACUTE CHANGES THIS SHIFT. VSS. ALERT. BASELINE DEMENTIA. REMAINS IN SR. ON RA. NO BIPAP USE. PT FILLS ATTENDS AND PADS IN ATTENDS WHEN INCONTINENT. BEING TURNED BY STAFF. PLEASANT AND COOPERATIVE. BLOOD SUGARS STABILIZING. OTHERWISE, RESTED THIS SHIFT.
--- NOTE | 2021-08-17 17:20 | NUR ---
MEDICAL STATUS / SHIFT SUMMARY PT A&O TO SELF & FAMILY. PT PLEASANTLY CONFUSED & FORGETFUL, BUT ALSO ABLE TO RECALL SOME HX. PT MADE MEDICAL STATUS THIS SHIFT. VSS. SPO2 > 92% ON RA. PT W/ EXPIRATORY WHEEZE THAT PT SPOUSE REPORTS BEING CHRONIC. MONITOR SHOWING SR, HR 80's-90's. PT INCONTINENT, WEARING ATTENDS. PT 2 PERSON ASSIST W/ GB FOR STAND & PIVOT TRANSFER FROM BED TO CHAIR & BACK. BED ALARM ON FOR PT SAFETY BUT PT NOT ATTEMPTING TO GET OOB W/ OUT STAFF HELP.
[2021-08-18 04:27] LABS: BASOPHILS ABSOLUTE AUTO 0.02 K/mm3 (0.00-0.23); BASOPHILS PERCENT AUTO 0 % (0-2); EOSINOPHILS PERCENT AUTO 0 % (0-6); Hematocrit 27.7 % (33.0-51.0); Hemoglobin 7.7 g/dL (11.5-16.0); IMMATURE GRAN ABSOLUTE AUTO 0.09 K/mm3 (0.00-0.10); IMMATURE GRAN PERCENT AUTO 1 % (0-1); LYMPHOCYTES ABSOLUTE AUTO 1.13 K/mm3 (0.84-5.20); LYMPHOCYTES PERCENT AUTO 10 % (21-46); MONOCYTES PERCENT AUTO 5 % (4-13); Mean Corpuscular HGB 19.9 pg (26.0-34.0); Mean Corpuscular HGB Conc 27.8 g/dL (31.5-36.5); Mean Corpuscular Volume 72 fL (80-100); NEUTROPHILS ABSOLUTE AUTO 10.01 K/mm3 (1.96-9.15); NEUTROPHILS PERCENT AUTO 84 % (41-73); NRBC ABSOLUTE 0.05 K/mm3 (0.00-0.02); NRBC Auto 0.4 /100 WBC (0.0-0.2); Platelet Count 540 K/mm3 (150-400); RDW Coefficient Variation 20.5 % (11.7-14.2); RDW Standard Deviation 50.8 fL (35.1-46.3); Red Blood Cell Count 3.86 M/mm3 (3.80-5.20); White Blood Cell Count 11.85 K/mm3 (4.00-11.30)
[2021-08-18 04:49] LABS: International Normalized Ratio 1.19; Prothrombin Time Results 12.4 Sec (9.7-11.5)
[2021-08-18 04:51] LABS: Anion Gap 9 mmol/L (6-16); Blood Urea Nitrogen 23 mg/dL (8-24); Bun/Creatinine Ratio 33.5 (12.0-20.0); CO2, Blood 25 mmol/L (21-32); Chloride, Blood 101 mmol/L (98-108); Creatinine, Blood 0.69 mg/dL (0.40-1.00); Glomerular Filtration Rate 94 (60-); Glucose, Blood 221 mg/dL (70-99); Phosphorus, Blood 3.4 mg/dL (2.5-4.9); Potassium, Blood 4.3 mmol/L (3.5-5.5); Sodium, Blood 135 mmol/L (136-145)
--- NOTE | 2021-08-18 06:02 | NUR ---
shift summary pt rested well through the night. alert and oriented, able to make needs known. cooperative with plan of care. sats >90% on room air. tele reads nsr 85. no pain. incontinent of urine and stool, chagned as needed. vss. call light wtihin reach, bed alarm on, will continue to monitor.
[2021-08-18] MEDS ORDERED: ERGO400 PO (14:09)
[2021-08-18] MEDS ORDERED: AZIT250 PO (14:12)
[2021-08-18] MEDS ORDERED: FERSU300 PO (14:13)
[2021-08-18] MEDS ORDERED: Prednisone10 MG PO (14:14)
[2021-08-18] MEDS ORDERED: BASAGLAR K100 UNIT/6 SC (14:17)
--- NOTE | 2021-08-18 18:55 | NUR ---
DISCHARGE PT MEDICAL STATUS. A&O TO SELF & FAMILY, PLEASANTLY CONFUSED. VSS. SPO2 > 92% ON RA. PT DISCHARGED BACK TO [facility]. REPORT CALLED TO ACCEPTING STAFF MEMBER ASSUMING CARE OF PT @ [facility]. PT TAKEN BY TRANSPORT SERVICE @ APPROX 1815 IN WHEEL CHAIR W/ BELONGINGS. PT SPOUSE NOTIFIED OF PT DISCHARGE.
== END 2021-08-18 18:27 | disposition home or self-care (01) | DRG 189 ==
LOC: ER 15:54 → PCU 18:04
PROVIDERS: Family Medicine; Hospitalist; Student in an Organized Health Care Education/Training Program; ADMIT Internal Medicine
PROC: 5A09357 Assistance with Respiratory Ventilation, Less than 24 Consecutive Hours, Continuous Positive Airway Pressure (ICD-10-PCS; principal; 2021-08-14)
PROC: 30233N1 Transfusion of Nonautologous Red Blood Cells into Peripheral Vein, Percutaneous Approach (ICD-10-PCS; 2021-08-14)
DX: J96.01 Acute respiratory failure with hypoxia (principal); J44.1 Chronic obstructive pulmonary disease with (acute) exacerbation; Z68.41 Body mass index [BMI] 40.0-44.9, adult; D50.9 Iron deficiency anemia, unspecified; I35.0 Nonrheumatic aortic (valve) stenosis; Z88.6 Allergy status to analgesic agent; Z88.0 Allergy status to penicillin; Z91.040 Latex allergy status; Z66 Do not resuscitate; K21.9 Gastro-esophageal reflux disease without esophagitis; I10 Essential (primary) hypertension; G30.9 Alzheimer's disease, unspecified; F02.80 Dementia in other diseases classified elsewhere, unspecified severity, without behavioral disturbance, psychotic disturbance, mood disturbance, and anxiety; Z86.718 Personal history of other venous thrombosis and embolism; Z86.711 Personal history of pulmonary embolism; Z79.899 Other long term (current) drug therapy; Z88.5 Allergy status to narcotic agent; Z90.5 Acquired absence of kidney; Z90.49 Acquired absence of other specified parts of digestive tract; R79.89 Other specified abnormal findings of blood chemistry; Z20.822 Contact with and (suspected) exposure to COVID-19; E11.42 Type 2 diabetes mellitus with diabetic polyneuropathy; Z79.84 Long term (current) use of oral hypoglycemic drugs; E66.01 Morbid (severe) obesity due to excess calories
CPT/HCPCS: 0241U; 36415; 36430; 71046; 80053; 80069; 82550; 82553; 82728; 82803; 82947; 83540; 83550; 83735; 83880; 84100; 84484; 85025; 85610; 86850; 86900; 86901; 86923; 93005; 93010; 94640; 94644; 94660; 94664; 94760; 94762; 97110; 97162; 97166; 97530; 97535; 99285-25; A9270; J0456; J1650; J1815; J2920; J2930; J7040; J7050; P9016

== ENCOUNTER → 2021-08-28 | Outpatient (CLI) | payer BC, MEDICARE, OTHER ==
[~2021-08-28] MED LIST changes: +ANTAC+SIM PO; +BASAGLAR K100 UNIT/6 SC; +ERGO400 PO; +LOPE2C PO; +Prednisone10 MG PO; +VITAMIN D310 MC4 PO; +ZEBUTAL 50-3251 EAC1 PO
[2021-08-28 11:46] LABS: Bilirubin, Urine Neg (Neg); Blood, Urine 2+ (Neg); Color, Urine Yellow (P-Yellow); Glucose Qualitative, Urine 1+ (Neg); Ketones, Urine Neg (Neg); Leukocyte Esterase, Urine 3+ (Neg); Nitrite, Urine Neg (Neg); Protein, Urine 1+ (Neg); Urobilinogen, Urine NORM (Normal)
[2021-08-28 12:26] LABS: White Blood Cells, Urine TNTC /hpf (0-5)
[2021-08-28 12:28] LABS: Bacteria Many /hpf; Squamous Epithelial Cells Rare /hpf (Few); Yeast/Fungi Urine Many /hpf
[2021-08-28 12:29] LABS: Appearance, Urine Hazy (Clear)
== END | disposition home or self-care (01) ==
LOC: LAB SHORT 09:10 → LAB 09:10
PROVIDERS: Family Medicine
DX: N39.0 Urinary tract infection, site not specified (principal)
CPT/HCPCS: 81001; 87086

== ENCOUNTER 2021-10-15 20:43 | Inpatient (IN) | payer BC, MEDICARE, OTHER ==
[~2021-10-15] VITALS: Ht 162.6 cm; Wt 102.4 kg
[2021-10-15 20:57] LABS: BASOPHILS ABSOLUTE AUTO 0.07 K/mm3 (0.00-0.23); BASOPHILS PERCENT AUTO 0 % (0-2); EOSINOPHILS ABSOLUTE AUTO 0.22 K/mm3 (0.00-0.68); EOSINOPHILS PERCENT AUTO 1 % (0-6); Hematocrit 26.6 % (33.0-51.0); Hemoglobin 7.4 g/dL (11.5-16.0); IMMATURE GRAN ABSOLUTE AUTO 0.09 K/mm3 (0.00-0.10); IMMATURE GRAN PERCENT AUTO 1 % (0-1); LYMPHOCYTES ABSOLUTE AUTO 1.29 K/mm3 (0.84-5.20); LYMPHOCYTES PERCENT AUTO 8 % (21-46); MONOCYTES ABSOLUTE AUTO 1.42 K/mm3 (0.16-1.47); MONOCYTES PERCENT AUTO 8 % (4-13); Mean Corpuscular HGB 18.9 pg (26.0-34.0); Mean Corpuscular HGB Conc 27.8 g/dL (31.5-36.5); Mean Corpuscular Volume 68 fL (80-100); Mean Platelet Volume 9.8 fL (9.1-12.4); NEUTROPHILS ABSOLUTE AUTO 13.91 K/mm3 (1.96-9.15); NEUTROPHILS PERCENT AUTO 82 % (41-73); Platelet Count 531 K/mm3 (150-400); RDW Coefficient Variation 20.3 % (11.7-14.2); RDW Standard Deviation 49.1 fL (35.1-46.3); Red Blood Cell Count 3.91 M/mm3 (3.80-5.20)
[2021-10-15] MEDS ORDERED: SYMBICORT 160-4.6 GM INH (21:01)
[2021-10-15 21:20] LABS: Albumin, Blood 2.9 g/dL (3.4-5.0); Albumin/Globulin Ratio 0.7 (0.8-1.8); Bilirubin, Total 0.4 mg/dL (0.1-1.0); Bun/Creatinine Ratio 18.8 (12.0-20.0); Calcium, Blood 8.6 mg/dL (8.5-10.1); Creatinine, Blood 0.75 mg/dL (0.40-1.00); Globulin, Blood 4.4 g/dL (2.2-4.0); Potassium, Blood 4.4 mmol/L (3.5-5.5); Total Protein, Blood 7.3 g/dL (6.4-8.2)
[2021-10-15 22:50] LABS: pH Blood Venous 7.38 (7.34-7.37)
[2021-10-15 22:51] LABS: Base Excess Venous 1.6 mmol/L; Bicarbonate Venous 25.3 mmol/L (24.0-30.0); PCO2 Venous 45.3 mmHg (38-42)
[2021-10-16 00:19] LABS: International Normalized Ratio 2.74; Prothrombin Time Results 26.9 Sec (9.7-11.5)
[2021-10-16 00:40] LABS: Source, Urine Foley catheter
[2021-10-16 00:42] LABS: Bilirubin, Urine Neg (Neg); Blood, Urine 2+ (Neg); Glucose Qualitative, Urine Neg (Neg); Ketones, Urine Neg (Neg); Leukocyte Esterase, Urine 3+ (Neg); Nitrite, Urine Neg (Neg); Protein, Urine 3+ (Neg); Urobilinogen, Urine NORM (Normal)
[2021-10-16 00:55] LABS: Appearance, Urine Hazy (Clear); Bacteria Many /hpf; Color, Urine Pale Yellow (P-Yellow); Red Blood Cells, Urine 0-2 /hpf (0-2); Squamous Epithelial Cells Not Seen /hpf (Few); White Blood Cells, Urine TNTC /hpf (0-5)
--- NOTE | 2021-10-16 02:15 | NUR ---
ADMIT NOTE PT ARRIVED TO FLOOR VIA GURNEY. CALL BUTTON WITHIN REACH. LR BOLUS INFUSING. TELEMETRY MONITORING IN PLACE. BED ALARM ON. GLUCOSE TESTED. INSULIN GIVEN.
--- NOTE | 2021-10-16 04:38 | NUR ---
SHIFT SUMMARY PT ARRIVED FROM THE ER WHERE SHE WAS SEEN DUE RESPIRATORY DISRESS. PT HAS AUDIBLE WHEEZING AND RHONCHI. PT ARRIVED TO OUR UNIT IN A CONFUSED STATE AND UNABLE TO VERBALIZE EXCEPT FOR AN OCCASIONAL WORD. PT ARRIVED WITH A MEYER IN PLACE, AND ONCE HERE RECIEVED AN LR BOLUS AND IS NOW ON CONTINOUS LR. AFTER ADMISSION PT FELL ASLEEP AND HAS BEEN SLEEPING COMFORTABLY. PT IS MAINTANING ADEQUATE O2 SATURATION ON ROOM AIR.
[2021-10-16 06:09] LABS: BASOPHILS ABSOLUTE AUTO 0.06 K/mm3 (0.00-0.23); BASOPHILS PERCENT AUTO 0 % (0-2); EOSINOPHILS ABSOLUTE AUTO 0.22 K/mm3 (0.00-0.68); EOSINOPHILS PERCENT AUTO 1 % (0-6); Hematocrit 25.7 % (33.0-51.0); IMMATURE GRAN ABSOLUTE AUTO 0.06 K/mm3 (0.00-0.10); IMMATURE GRAN PERCENT AUTO 0 % (0-1); LYMPHOCYTES ABSOLUTE AUTO 1.09 K/mm3 (0.84-5.20); LYMPHOCYTES PERCENT AUTO 7 % (21-46); MONOCYTES ABSOLUTE AUTO 1.62 K/mm3 (0.16-1.47); MONOCYTES PERCENT AUTO 10 % (4-13); Mean Corpuscular HGB 18.8 pg (26.0-34.0); Mean Corpuscular HGB Conc 27.2 g/dL (31.5-36.5); Mean Corpuscular Volume 69 fL (80-100); Mean Platelet Volume 9.4 fL (9.1-12.4); NEUTROPHILS ABSOLUTE AUTO 13.36 K/mm3 (1.96-9.15); NEUTROPHILS PERCENT AUTO 81 % (41-73); Platelet Count 471 K/mm3 (150-400); RDW Coefficient Variation 20.2 % (11.7-14.2); Red Blood Cell Count 3.73 M/mm3 (3.80-5.20); White Blood Cell Count 16.41 K/mm3 (4.00-11.30)
[2021-10-16 06:34] LABS: Albumin, Blood 2.6 g/dL (3.4-5.0); Albumin/Globulin Ratio 0.6 (0.8-1.8); Bilirubin, Total 0.4 mg/dL (0.1-1.0); Bun/Creatinine Ratio 13.9 (12.0-20.0); Calcium, Blood 8.4 mg/dL (8.5-10.1); Creatinine, Blood 0.79 mg/dL (0.40-1.00); Total Protein, Blood 6.6 g/dL (6.4-8.2)
[2021-10-16 12:37] LABS: Percent Saturation 3.1 % (15.0-50.0)
--- NOTE | 2021-10-16 14:31 | NUR ---
REPORTED TO DR RIVERA. PATIENT FAILED BEDSIDE SWALLOW EVAL, ST ORDERED FOR FURTHER SWALLOW EVAL
[2021-10-16 16:14] LABS: Hematocrit 25.3 % (33.0-51.0); Hemoglobin 7.1 g/dL (11.5-16.0)
--- NOTE | 2021-10-16 21:14 | NUR ---
[facility] CAREGIVER CALLED CAREGIVER/MED AID FROM [facility] (PATIENT'S RESIDENCE) CALLED. SHE STATED THAT THE PT IS WHEELCHAIR BOUND AT BASELINE. SHE IS A 1 ASSIST TRANSFER TO WHEELCHAIR. AT [facility] SHE IS ON A MECHANICAL SOFT DIET AND SHE IS ON NECTAR THICK LIQUIDS. HER MEDICATIONS AT [facility] ARE CRUSHED IN APPLESAUCE. SHE STATED THAT AT BASELINE THE PATIENT IS PLEASANTLY CONFUSED, BUT COULD SPEAK IN FULL SENTENCES REMEMBERING SOME STORIES ABOUT HER AND HER . SHE CAN GIVE YES AND NO ANSWERS AT HER BASELINE. HER DOES NOT LIVE WITH HER AT [facility], HE STILL RESIDES AT THEIR HOUSE.
--- NOTE | 2021-10-17 04:11 | NUR ---
SHIFT SUMMARY ADMITTED FOR PNEUMONIA/UTI. FULL CODE. IV ANTIB RX ARE SCHEDULED. PALLIATIVE CARE IS CONSULTED. LR INFUSING @ 125 ML/HR. BEDSIDE SWALLOW EVAL FAILED. SPEECH THERAPY CONSULTED FOR SWALLOW EVAL. [facility] STAFF CALLED, SEE PREVIOUS NOTE. Q6 GLUCOSE CHEMSTICKS. ADVANCING DEMENTIA NOTED ON CT SCAN. HX OF ANEMIA NOTED. MEYER IN PLACE.
[2021-10-17 05:39] LABS: BASOPHILS ABSOLUTE AUTO 0.09 K/mm3 (0.00-0.23); BASOPHILS PERCENT AUTO 1 % (0-2); EOSINOPHILS ABSOLUTE AUTO 0.25 K/mm3 (0.00-0.68); EOSINOPHILS PERCENT AUTO 2 % (0-6); Hematocrit 25.4 % (33.0-51.0); Hemoglobin 7.1 g/dL (11.5-16.0); IMMATURE GRAN ABSOLUTE AUTO 0.08 K/mm3 (0.00-0.10); IMMATURE GRAN PERCENT AUTO 1 % (0-1); LYMPHOCYTES ABSOLUTE AUTO 0.94 K/mm3 (0.84-5.20); LYMPHOCYTES PERCENT AUTO 6 % (21-46); MONOCYTES ABSOLUTE AUTO 1.61 K/mm3 (0.16-1.47); MONOCYTES PERCENT AUTO 11 % (4-13); Mean Corpuscular HGB 18.9 pg (26.0-34.0); Mean Corpuscular Volume 68 fL (80-100); Mean Platelet Volume 10.3 fL (9.1-12.4); NEUTROPHILS ABSOLUTE AUTO 12.09 K/mm3 (1.96-9.15); NEUTROPHILS PERCENT AUTO 80 % (41-73); Platelet Count 494 K/mm3 (150-400); RDW Coefficient Variation 19.9 % (11.7-14.2); RDW Standard Deviation 47.8 fL (35.1-46.3); Red Blood Cell Count 3.76 M/mm3 (3.80-5.20); White Blood Cell Count 15.06 K/mm3 (4.00-11.30)
[2021-10-17 06:05] LABS: Calcium, Blood 8.1 mg/dL (8.5-10.1); Creatinine, Blood 0.64 mg/dL (0.40-1.00); Potassium, Blood 3.7 mmol/L (3.5-5.5)
--- NOTE | 2021-10-17 11:15 | NUR ---
Received call from Primary RN Chhaya reporting Dr Mckenzie had discussion with spouse regarding code status and considering hospice. Pt changed to DNR. Arrived to room with Pt resting in bed. Pt is A&OX1. Pt denies pain and dyspnea at this time. Pt's spouse Waylon is at bedside. Engaged in therapeutic discussion regarding goals of care. Waylon reports Pt lives at [facility]. She does not ambulate and requires assistance with transfers, bathing, dressing, and is incontinent of bowel and bladder. Pt is able to feed herself. Educated on hospice philosophy with V/U made by Waylon. Waylon is agreeable for hospice services. Discussed agencies to choose from and provided brochures. Wayoln reports plan to discuss with staff at [facility] for recommendations as he reports no knowing who to choose from. Assisted with completing POLST per Waylon's requrest. Waylon expresses appreciation and reports no other concerns at this time. Dr Mckenzie signs POLST and copy obtained. Will deliver to medical records. Palliative Care will remain available.
--- NOTE | 2021-10-17 11:34 | NUR ---
Late Entry from previous visit note. Received call from spouse Waylon reporting hospice chiccase[facility] is [facility].
--- NOTE | 2021-10-17 14:49 | NUR ---
SHIFT SUMMARY PT MORE AWAKE TODAY THAN YESTERDAY. ABLE TO TAKE MEDS CRUSHED IN APPLESAUCE. DR RIVERA IN TO SEE PT EARLY AND TALKED WITH ABOUT PLAN OF CARE. CODE STATUS CHANGED TO DNR. PALLIATIVE CARE NOTIFIED, PER DR RIVERA, AND CAME TO TO TALK TO R/T HOSPICE TRANSITION. PT WITH SEVERE ADVANCING DEMENTIA AND SILENT ASPIRATION. PUREE DIET ORDERED FOR LUNCH. PT HAPPY ABOUT THAT AND EVEN FED HERSELF SOME, EATING ABOUT 30%. PT'S SON IN TO VISIT THIS AFTERNOON. PT BECAME TALKATIVE WITH SON AT BS. WORDS AND SENTENCES NOT MAKING ANY SENSE, BUT SHE BECAME CHEERFUL WITH TALKING TO HIM. IVF'S INFUSING PER EMAR. MEYER TO GRAVITY PATENT. PT NOT TAKING IN MUCH FOR PO LIQUID AT ALL; SIPS TODAY. NOTHING YESTERDAY, BEING OBTUNDED. SCATTERED EXP WHEEZES T/O, WITH OCCASSIONAL COARSE COUGH; SOLUMEDROL ORDERED, AND GIVEN PER EMAR. PT UNABLE TO MOVE HERSELF IN BED AT ALL, BEING COMPLETELY IMMOBILE. NO C/O PAIN. POSSIBLE D/C BACK TO [facility] TOMORROW. BED ALARM ON FOR SAFETY. CALL LT IN REACH.
--- NOTE | 2021-10-18 12:33 | NUR ---
Pt resting in bed and is pleasantly confused. Pt denies pain at this time. Pt is hopeful to return back to [facility]. Palliative Care will remain available.
--- NOTE | 2021-10-18 16:18 | NUR ---
PT WAS DISCHARGED BACK TO [facility]. PT WAS ABLE TO STAND AND PIVOT TO WHEELCHAIR WITH WALKER AND 2 PERSON ASSIST. PT WAS SENT WITH TWO BAGS OF BELONGINGS. PT'S DISCHARGE PAPERS, WELL HER POLST, WERE SENT WITH TRANSPORTER. MEYER CATHETER AND IV WERE REMOVED PRIOR TO BEING DISCHARGED.
== END 2021-10-18 16:09 | disposition home or self-care (01) | DRG 871 ==
LOC: ER 20:43 → MEDS 23:50 → ENPENDDIS 10-18 11:01 → MEDS 10-18 16:09
PROVIDERS: Family Medicine; Internal Medicine; Student in an Organized Health Care Education/Training Program; ADMIT Family Medicine
DX: A41.9 Sepsis, unspecified organism (principal); J96.01 Acute respiratory failure with hypoxia; J44.1 Chronic obstructive pulmonary disease with (acute) exacerbation; N39.0 Urinary tract infection, site not specified; I50.32 Chronic diastolic (congestive) heart failure; J44.0 Chronic obstructive pulmonary disease with (acute) lower respiratory infection; G93.49 Other encephalopathy; A00-B99 Certain infectious and parasitic diseases; C79.01 Secondary malignant neoplasm of right kidney and renal pelvis; G47.33 Obstructive sleep apnea (adult) (pediatric); Z51.5 Encounter for palliative care; Z66 Do not resuscitate; B96.20 Unspecified Escherichia coli [E. coli] as the cause of diseases classified elsewhere; F03.90 Unspecified dementia, unspecified severity, without behavioral disturbance, psychotic disturbance, mood disturbance, and anxiety; I11.0 Hypertensive heart disease with heart failure; E11.40 Type 2 diabetes mellitus with diabetic neuropathy, unspecified; Z85.118 Personal history of other malignant neoplasm of bronchus and lung; G43.909 Migraine, unspecified, not intractable, without status migrainosus; Z95.2 Presence of prosthetic heart valve; Z86.711 Personal history of pulmonary embolism; Z86.718 Personal history of other venous thrombosis and embolism; E78.00 Pure hypercholesterolemia, unspecified; G89.4 Chronic pain syndrome; K21.9 Gastro-esophageal reflux disease without esophagitis; F41.9 Anxiety disorder, unspecified; Z90.49 Acquired absence of other specified parts of digestive tract; Z98.890 Other specified postprocedural states; Z98.42 Cataract extraction status, left eye; Z98.41 Cataract extraction status, right eye; Z88.0 Allergy status to penicillin; Z79.899 Other long term (current) drug therapy; R65.20 Severe sepsis without septic shock; D50.9 Iron deficiency anemia, unspecified; E03.9 Hypothyroidism, unspecified; L89.90 Pressure ulcer of unspecified site, unspecified stage; Z88.6 Allergy status to analgesic agent; Z91.048 Other nonmedicinal substance allergy status; Z79.84 Long term (current) use of oral hypoglycemic drugs
CPT/HCPCS: 36415; 51702; 70450; 71045; 80048; 80053; 81001; 82728; 82803; 82947; 83540; 83550; 83605; 83880; 84145; 84443; 84484; 85014; 85018; 85025; 85610; 87040; 87077; 87086; 87186; 92610; 93005; 93010; 94640; 94664; 94760; 96374; 96375; 99285-25; A9270; J0456; J0696; J1650; J1815; J2916; J2920; J7030; J7050; J7120